=== PATIENT | female | born 1940 | race Hispanic/Latino ===

== ENCOUNTER 2017-06-15 10:39 | Emergency (ER) | payer MEDICARE, MEDICAID ==
[2017-06-15 11:13] LABS: #Eosinphils 0.1 thou/uL (0.0-0.7); #Lymphocytes 0.8 thou/uL (1.20-3.40); #Monocytes 0.6 thou/uL (0.11-0.59); #Neutrophils 6.5 thou/uL (1.40-6.50); %Basophils 0.1 % (0.0-1.0); %Eosinophils 0.8 % (0.0-10.0); %Lymphocytes 10.3 % (21.0-51.0); %Monocytes 6.9 % (0.0-10.0); %Neutrophils 81.8 % (42.0-75.0); Hemoglobin 8.6 g/dL (12.0-16.0); Mean Corpuscular HGB CONC 31.9 g/dL (32.0-36.0); Mean Corpuscular Volume 87.8 fl (81.0-99.0); Mean Platelet Volume 6.7 fL (7.4-10.4); Platelet Count 310 thou/uL (130-400); RBC Distribution Width 14.4 % (11.5-14.5); Red Blood Cell (RBC) Count 3.06 mill/uL (4.20-5.40)
[2017-06-15 11:16] LABS: INR-International Normal Ratio 1.2; PTT 40.7 SEC (22.9-36.1); Prothrombin Time 15.3 SEC (12.0-14.7)
[2017-06-15] MEDS ORDERED: Oxymetazoline HCl 0.05% ( 15 ML ) ONE (11:29)
[2017-06-15 11:33] LABS: Anion Gap 13 mmol/L (10-20); BUN (Urea Nitrogen) 23 mg/dL (9.8-20.1); Calc. Creatinine Clearance 0 mL/min (70-130); Calcium 8.9 mg/dL (7.8-10.44); Carbon Dioxide 27 mmol/L (23-31); Chloride 101 mmol/L (98-107); Estimated GFR-MDRD 55; Glucose 131 mg/dL (83-110); Potassium 4.8 mmol/L (3.5-5.1); Sodium 136 mmol/L (136-145)
== END 2017-06-15 12:46 | disposition home or self-care (01) ==
LOC: ERS 10:39
DX: R04.0 Epistaxis (principal); D64.9 Anemia, unspecified; E11.9 Type 2 diabetes mellitus without complications; I10 Essential (primary) hypertension; Z85.038 Personal history of other malignant neoplasm of large intestine; Z85.41 Personal history of malignant neoplasm of cervix uteri
CPT/HCPCS: 30903; 36415; 80048; 85025; 85610; 85730

== ENCOUNTER 2017-06-26 09:53 | Inpatient (IN) | payer MEDICARE, OTHER ==
[2017-06-26 11:03] LABS: #Eosinphils 0.1 thou/uL (0.0-0.7); #Lymphocytes 1.2 thou/uL (1.20-3.40); #Monocytes 0.6 thou/uL (0.11-0.59); #Neutrophils 6.1 thou/uL (1.40-6.50); %Basophils 0.1 % (0.0-1.0); %Eosinophils 0.9 % (0.0-10.0); %Lymphocytes 14.4 % (21.0-51.0); %Monocytes 7.9 % (0.0-10.0); %Neutrophils 76.7 % (42.0-75.0); Hemoglobin 6.8 g/dL (12.0-16.0); Mean Corpuscular HGB CONC 31.6 g/dL (32.0-36.0); Mean Corpuscular Hemoglobin 27.7 pg (27.0-31.0); Mean Corpuscular Volume 87.6 fl (81.0-99.0); Mean Platelet Volume 7.7 fL (7.4-10.4); Platelet Count 224 thou/uL (130-400); RBC Distribution Width 15.3 % (11.5-14.5); Red Blood Cell (RBC) Count 2.46 mill/uL (4.20-5.40)
--- NOTE | 2017-06-26 11:06 | RAD ---
CHEST 1 VIEW: Date: 06/26/17 HISTORY: Fever. COMPARISON: 12/06/16. FINDINGS: Cardiac silhouette is magnified by projection. Pulmonary vasculature is upper limits of normal. Media stinum is midline with aortic calcification. Calcified granulomata are consistent with healed granulo matous disease. There is no lobar consolidation or evidence of pneumothorax. bus driver/monitor leads ov erlie the chest. IMPRESSION: Borderline pulmonary vascular prominence without florid edema. No lobar consolidation is apparent. POS: [facility]
[2017-06-26 11:40] LABS: ALT (SGPT) 11 U/L (8-55); AST (SGOT) 25 U/L (5-34); Albumin 2.3 g/dL (3.4-4.8); Alkaline Phosphatase 113 U/L (40-150); Anion Gap 13 mmol/L (10-20); BUN (Urea Nitrogen) 32 mg/dL (9.8-20.1); Bilirubin, Total 0.5 mg/dL (0.2-1.2); Calc. Creatinine Clearance 0 mL/min (70-130); Calcium 8.5 mg/dL (7.8-10.44); Carbon Dioxide 20 mmol/L (23-31); Chloride 105 mmol/L (98-107); Estimated GFR-MDRD 56; Globulin 4.1 g/dL (2.4-3.5); Glucose 120 mg/dL (83-110); Potassium 5.3 mmol/L (3.5-5.1); Protein, Total 6.4 g/dL (6.0-8.3); Sodium 133 mmol/L (136-145)
[2017-06-26] MEDS ORDERED: Pantoprazole 40 MG VIAL ONE (12:16)
[2017-06-26] MEDS ORDERED: Dextrose 5% in Water 1,000 ML IV PRN (13:53)
[2017-06-26] MEDS ORDERED: Dextrose 50% Abboject 50 ML SYRINGE SLOW IVP PRN (13:53)
[2017-06-26] MEDS ORDERED: HumaLOG 300 UNITS/3 ML VIAL SC PRN (13:53)
[2017-06-26 14:05] LABS: Reticulocyte Count 3.6 % (0.5-1.5)
[2017-06-26 14:35] LABS: Anisocytosis SLIGHT = 6-15 cells (100X) (0-5/hpf); Eosinophils 1 % (0-10); Hemoglobin 7.5 g/dL (12.0-16.0); Lymphocytes 11 % (21-51); MDiff Complete? YES; Mean Corpuscular HGB CONC 32.7 g/dL (32.0-36.0); Mean Corpuscular Hemoglobin 28.5 pg (27.0-31.0); Mean Corpuscular Volume 87.2 fl (81.0-99.0); Mean Platelet Volume 7.2 fL (7.4-10.4); Monocytes 4 % (0-10); Neutrophil 84 % (42-75); PLT Morphology Comment Appears Adequate; Platelet Count 222 thou/uL (130-400); Polychromasia SLIGHT = 2-3 cells (100X) (0-2/hpf); RBC Distribution Width 14.6 % (11.5-14.5); Red Blood Cell (RBC) Count 2.65 mill/uL (4.20-5.40); White Blood Cell (WBC) Count 8.3 thou/uL (4.8-10.8)
--- NOTE | 2017-06-26 14:47 | HP-2 ---
DATE OF ADMISSION: 06/26/2017 TIME: 1308 hours. CODE STATUS: FULL. PRIMARY CARE PHYSICIAN: Dr. Richard. ATTENDING: Dr. Villegas. RESIDENT: Dr. Barron. HISTORIAN: Patient. CHIEF COMPLAINT: Low hemoglobin. HISTORY OF PRESENT ILLNESS: This is a 77-year-old female, who arrived to [facility] with low h emoglobin. She states that she was feeling weak for about 1-2 months. 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 She denies having any kind of shortness of breath, chest pain, emesis, abdominal pain, diarrhea, hematochezia. She does endorse da rk stool that has started for the last month. It was noted that her hemoglobin was low at the [facility] and she was sent to the ER. Two sets of hemoglobin was taken and it was 5.8 and then 6.9. A Hemoccu lt blood was done and was found to be guaiac positive. In the ER, she has received Protonix, 1 unit of RBC in the middle of transfusion, and 500 mL of normal saline. PAST MEDICAL HISTORY: 1. Hyperlipidemia. 2. Cervical cancer. 3. Diabetes, type 2. 4. Hypertension. 5. Tubular adenoma removed with colonoscopy, 3 years prior. PAST SURGICAL HISTORY: 1. Colon resection. 2. Appendectomy. 3. Cholecystectomy. 4. Hysterectomy. 5. Right lower extremity amputation. ALLERGIES: No known drug allergies. MEDICATIONS: Patient is unable to remember medications and no records of medication was available at the time of this H and P. We will attempt to obtain the records from her rehabilitation facility. FAMILY HISTORY: Daughter, who has colon cancer at age 32, endorses CAD, diabetes type 2, hypertensio n, hyperlipidemia in the family. SOCIAL HISTORY: Endorses quitting tobacco smoking about 4 or 5 years ago, but cannot quantify the ex act amount of time and quantity she smoked for. Denies any alcohol or drug use. She is , has 5 children, and is currently staying at rehab after a right below-knee amputation. REVIEW OF SYSTEMS: General: Denies fever, chills, appetite change, or fatigue. Eyes: Denies visio n change. ENT: Denies nasal congestion. Respiratory: Denies cough, congestion, or shortness of br eath. Cardiovascular: Denies chest pain or palpitations. Gastrointestinal: Denies nausea, vomitin g, diarrhea, constipation, abdominal pain, or gastrointestinal bleeding. Does endorse dark stools. Genitourinary: Denies dysuria or hematuria. Skin: Endorses having a sacral ulcer on her back. Mus culoskeletal: Denies pain. Neuro: Denies weakness or numbness. Psychiatric: Denies anxiety or de pression. PHYSICAL EXAMINATION: VITAL SIGNS: Blood pressure 134/42, pulse 76, respirations 20, T-max 98.3, O2 98% on room air. Curr ent weight 86 kilograms. GENERAL: Alert, oriented x3, not in acute distress, well-developed, obese, and appropriately interac tive. EYES: Conjunctivae within normal limits. ENT: Oropharynx within normal limits. The patient has dentures. NECK: Supple, with no lymphadenopathy. CARDIOVASCULAR: Regular rate and rhythm. RESPIRATORY: Normal effort. Clear to auscultation bilaterally. No retractions. SKIN: There is approximately 7 x 5 cm sacral ulcer on her sacrum, appears to be stage 2, and preexis tent prior to admission. ABDOMEN: Soft, bowel sounds heard throughout. Not tender to palpation. Guaiac positive. EXTREMITIES: Right below knee-amputation with clean-appearing incision. MUSCULOSKELETAL: The patient has a right below-knee amputation. NEUROLOGICAL: Cranial nerves II-XII grossly intact. GCS 15. PSYCHIATRIC: Appropriate. LABORATORY DATA: 1. CBC: Hemoglobin 6.8, MCV 87, WBC 8, platelets 224. 2. Sodium 133, chloride 105, potassium 5.3, bicarbonate 20, BUN 32, creatinine 0.97, glucose 120, ca lcium 8.5. 3. AST 11, ALT 11, alkaline phosphatase 113, total bilirubin 0.5. Lactic acid 2.3 and albumin 2.3. IMAGING: Chest x-ray, vascular prominence, but no florid edema or consolidation. ASSESSMENT AND PLAN: 1. Normocytic anemia. Fecal occult blood test was positive and had dark stool per history. We will consult Gastroenterology for possible bleed. The patient is currently asymptomatic, but with RBC le ss than 7, she will be receiving a transfusion of 1 packed RBC. We will recheck her H and H 4 hours after her transfusion completes. We will consult Gastroenterology for possible upper and lower scope s. We will also plan another test for blood smear, retic count, iron studies, folate, and B12. 2. Diabetes, type 2. We will obtain records from her rehabilitation facility, and resume home medic ation with sliding scale insulin. 3. Hyperlipidemia. Resume medication. 4. Hypertension. We will hold her blood pressure medication at this time due to potential bleed. 5. Chronic kidney disease, stage 3. This is a chronic issue. We will continue to monitor. 6. Mild lactic acidosis. Lactic acidosis of 2.3. We will recheck a second lactic acid lab. 7. Possible protein-calorie malnutrition. The patient has an albumin of 2.3, which is lower than fr om previous visit and she is healing from both a surgery and has a skin wound, which may benefit from protein supplementation. 8. Prophylaxis. She will be started on Protonix and sequential compression device due to possible b leed. DISPOSITION AND LENGTH OF HOSPITAL STAY: 2+ inpatient day. This history and physical exam as well as management has been discussed with Dr. Villegas.
[2017-06-26 15:07] LABS: Folate (Folic Acid) 6.8 ng/mL (7.0-31.4)
[2017-06-26 15:16] LABS: Lactic Acid 1.4 mmol/L (0.5-2.2)
[2017-06-26 17:58] VITALS: BMI 33.6
[2017-06-26 19:02] LABS: Anion Gap 11 mmol/L (10-20); BUN (Urea Nitrogen) 26 mg/dL (9.8-20.1); Calc. Creatinine Clearance 82 mL/min (70-130); Calcium 8.3 mg/dL (7.8-10.44); Carbon Dioxide 23 mmol/L (23-31); Chloride 106 mmol/L (98-107); Estimated GFR-MDRD 73; Glucose 84 mg/dL (83-110); Potassium 4.2 mmol/L (3.5-5.1); Sodium 136 mmol/L (136-145)
[2017-06-26] MEDS: Docusate 100 MG CAP PO SCH (22:34)
[2017-06-27 05:41] LABS: #Eosinphils 0.2 thou/uL (0.0-0.7); #Lymphocytes 1.3 thou/uL (1.20-3.40); #Monocytes 0.8 thou/uL (0.11-0.59); #Neutrophils 4.8 thou/uL (1.40-6.50); %Basophils 0.1 % (0.0-1.0); %Eosinophils 2.8 % (0.0-10.0); %Lymphocytes 18.2 % (21.0-51.0); %Monocytes 10.7 % (0.0-10.0); %Neutrophils 68.2 % (42.0-75.0); Hemoglobin 7.4 g/dL (12.0-16.0); Mean Corpuscular HGB CONC 32.2 g/dL (32.0-36.0); Mean Corpuscular Hemoglobin 28.1 pg (27.0-31.0); Mean Corpuscular Volume 87.2 fl (81.0-99.0); Mean Platelet Volume 7.3 fL (7.4-10.4); Platelet Count 207 thou/uL (130-400); RBC Distribution Width 14.7 % (11.5-14.5); Red Blood Cell (RBC) Count 2.64 mill/uL (4.20-5.40)
[2017-06-27] MEDS ORDERED: GoLYTELY 4,000 ml Bottle PO SCH (06:00)
--- NOTE | 2017-06-27 06:25 | CON ---
DATE OF CONSULTATION: 06/26/2017 REFERRING PHYSICIAN: Dr. Abdiel Villegas from [facility]. REASON FOR CONSULTATION: Anemia, occult GI bleeding. HISTORY OF PRESENT ILLNESS: Ms. Lilliam Mariee is a very pleasant 77-year-old female hospitalized this evening because of anemia and also history of dark stools. She had a stool guaiac done in the ER, which came back positive for occult blood. The patient has anemia from before. The patient was recently hospitalized at the [facility] because of ischemic right leg and underwent below-knee amputation by Dr. Zaid Beach. This was done in 05/2017. The patient was transferred to [facility] for rehabilitation. The patient has been feeling weak and dizzy over the last several weeks. She was sent to the ER this afternoon from the [facility]. She had a CBC done and was found to have anemia. She had 2 sets of hemoglobin, one was 5.8 and another one was 6.9. The patient has had stool guaiac done in the ER and came back positive. Her stool was not black or any bright red blood in stool. The patient has no abdominal pain, no nausea, no vomiting. The patient tells me she had anemia in the past and was placed on iron supplement. At the present time, denies abdominal pain, nausea, or vomiting. Her bowel movements are fairly regular. There is no relevant history. The patient has had a colonoscopy and there was found to have a right colon cancer in 2012. She underwent surgery and did not need any chemotherapy. The patient had a followup colonoscopy [address], this was done in 11/2015. At that time, she had a sessile polyp in sigmoid colon area. The patient had not seen me over the last about 2 years. The patient has no history of weight loss. She has no other relevant symptoms. ALLERGIES: None. SOCIAL HISTORY: The patient does not smoke or drink alcohol. MEDICAL ILLNESSES: 1. Hypertension. 2. Type 2 diabetes mellitus. 3. Cervical cancer. 4. Hyperlipidemia. 5. Colon cancer, status post right colectomy in 2012. 6. Colon polyp. SURGERIES: 1. Status post right colectomy. 2. Appendectomy. 3. Hysterectomy. 4. Cholecystectomy. 5. Below-knee amputation of right leg on 05/2017, at the [facility]. FAMILY HISTORY: Daughter had colon cancer, coronary artery disease, type 2 diabetes mellitus, hypertension, hyperlipidemia. MEDICATIONS: List is not available at the present time. She does not know her medications. REVIEW OF SYSTEMS: Ten-point system reviewed. Central Nervous System: No history of TIA, no chronic headache, no syncope, no seizure disorder. Constitutional: No history of fever, no weight loss, no night sweats. Respiratory system: No history of chronic cough, hemoptysis, dyspnea. Cardiovascular system: No chest pain, no palpitation, no orthopnea or PND. Gastrointestinal: As in history of present illness. Genitourinary: No dysuria , hematuria, or frequency of urination. Musculoskeletal/Endocrine/Hematological : Non relevant. PHYSICAL EXAMINATION: GENERAL: The patient appears pale. She is awake, alert, and communicative. VITAL SIGNS: Her pulse is 76, blood pressure is 134/42. She appears pale. HEENT: Conjunctivae clear. NECK: Supple. No adenitis or thyromegaly noted. CARDIOVASCULAR SYSTEM: First and second heart sounds normal. LUNGS: Clear to auscultation. ABDOMEN: Soft to palpate. Abdomen is nontender. There are no organomegaly or masses. EXTREMITIES: Right leg below-knee amputation, the suture line appears healthy. LABORATORY DATA: Hemoglobin 6.8, MCV 87. WBC 8000, platelet count 224,000. Sodium 133, potassium 105, chloride 5.3, bicarbonate 20, BUN 32, creatinine is 0.97, glucose 120, calcium 8.5, AST 11, ALT 11, alkaline phosphatase 113, bilirubin 0.5. CLINICAL IMPRESSION: 1. A 77-year-old female with anemia, which is normocytic. The patient has history of dark stool but has been on iron supplement which could be responsible. The patient had colon cancer in 2013, with surgery. She also had colon polyps removed in the past. 2. Diabetes mellitus. 3. Hypertension. 4. Peripheral vascular disease, status post below-knee amputation, right leg. 5. Hyperlipidemia. RECOMMENDATIONS: 1. Follow up H and H. 2. Transfuse. 3. EGD and colonoscopy tomorrow. I will make further recommendations after the endoscopic studies. [facility]
[2017-06-27 06:30] LABS: ALT (SGPT) 10 U/L (8-55); AST (SGOT) 18 U/L (5-34); Albumin 2.4 g/dL (3.4-4.8); Alkaline Phosphatase 105 U/L (40-150); Anion Gap 10 mmol/L (10-20); BUN (Urea Nitrogen) 23 mg/dL (9.8-20.1); Bilirubin, Total 0.5 mg/dL (0.2-1.2); Calc. Creatinine Clearance 77 mL/min (70-130); Calcium 8.2 mg/dL (7.8-10.44); Carbon Dioxide 25 mmol/L (23-31); Chloride 107 mmol/L (98-107); Estimated GFR-MDRD 67; Globulin 3.2 g/dL (2.4-3.5); Glucose 102 mg/dL (83-110); Potassium 4.5 mmol/L (3.5-5.1); Protein, Total 5.6 g/dL (6.0-8.3); Sodium 137 mmol/L (136-145)
--- NOTE | 2017-06-27 06:53 | PDOC.FM ---
- Subjective Subjective: Pt states that she still feels week, however is somewhat better post transfusion. She is denies dizziness, however has not been up walking since admission. She denies other symptoms such as CP or SOB. All other symptoms on ROS are negative. There were no acute events over night. - Objective Vital Signs & Weight: Vital Signs (12 hours) Temp Pulse Resp BP Pulse Ox 06/27/17 00:10 98.8 F 74 18 147/62 H 98 06/26/17 20:00 98.7 F 71 16 131/57 L 94 L Weight Weight 86.183 kg I&O: 06/25/17 06/26/17 06/27/17 06:59 06:59 06:59 Intake Total 300 Balance 300 Result Diagrams: 06/27/17 04:49 06/27/17 04:49 <Zaid Ford - Last Filed: 06/27/17 08:53> - Objective Vital Signs & Weight: Vital Signs (12 hours) Temp Pulse Resp BP Pulse Ox 06/27/17 08:00 98.0 F 74 20 94 L 06/27/17 07:59 98.0 F 74 20 151/70 H 94 L Weight Admit Weight 86.183 kg Weight 86.183 kg I&O: 06/26/17 06/27/17 06/28/17 06:59 06:59 06:59 Intake Total 300 Balance 300 Result Diagrams: 06/27/17 04:49 06/27/17 04:49 <Luis Felipe Wen - Last Filed: 06/27/17 12:34> Phys Exam - Physical Examination Constitutional: NAD HEENT: PERRLA, moist MMs Neck: no nodes Respiratory: clear to auscultation bilateral Cardiovascular: RRR, no significant murmur Systolic murmur 2/6, does not radiate Gastrointestinal: soft, non-tender, no distention Musculoskeletal: no edema Neurological: non-focal Psychiatric: normal affect, A&O x 3 <Zaid Ford - Last Filed: 06/27/17 08:53> Dx/Plan (1) Normocytic anemia due to blood loss Code(s): D50.0 - IRON DEFICIENCY ANEMIA SECONDARY TO BLOOD LOSS (CHRONIC) Status: Acute (2) DM2 (diabetes mellitus, type 2) Status: Chronic (3) HTN (hypertension) Code(s): I10 - ESSENTIAL (PRIMARY) HYPERTENSION Status: Chronic QualifierTitle: Hypertension type: essential hypertension Qualified Code( s): I10 - Essential (primary) hypertension (4) CKD (chronic kidney disease) stage 2, GFR 60-89 ml/min Code(s): N18.2 - CHRONIC KIDNEY DISEASE, STAGE 2 (MILD) Status: Chronic - Plan Plan: 1. symptomatic anemia secondary to GI blood loss - GI has been consulted. Pt will have EGD and colonoscopy today - Hemodynamically stable - GI recommendation pending results of scopes 2. HTN - continue home meds - Pt does currently have elevated BP, however not to the point of concern - Will continue to monitor and adjust meds as needed 3. DM2 - SSI, continue home meds after med rec is complete - control is unclear 4. CKD2 - it is possible that some of this anemia is chronic - Current GFR is at baseline - Will continue to hydrate and monitor BMP <Zaid oFrd - Last Filed: 06/27/17 08:53> Attending Addendum - Attending Addendum I personally evaluated the patient and discussed the management with Dr. Ford. I agree with the History, Examination, Assessment and Plan documented above with any addition or exceptions noted below. Patient with symptomatic hyporegenerative normocytic anemia that is felt to be due to GI bleed. She is to undergo EGD and colonoscopy later today. If her Hgb drops any more, with her age and symptoms, would advise repeat transfusion of 1 unit PRBCs. Her other labs are stable. Await GI recs. <Luis Felipe Wen - Last Filed: 06/27/17 12:34>
[2017-06-27] MEDS ORDERED: Acetaminophen 325 MG TAB PO PRN (11:19)
[2017-06-27] MEDS: Docusate 100 MG CAP PO SCH ×2 (12:22→20:03)
[2017-06-27] MEDS: Folic Acid 1 MG TAB PO SCH (12:22)
[2017-06-27] MEDS: Multivitamin W/ Minerals 1 TAB PO SCH (12:22)
[2017-06-27] MEDS ORDERED: Propofol 200 MG/20 ML VIAL ONE (13:33)
[2017-06-27] MEDS ORDERED: Ondansetron HCl/PF 4 MG/2 ML Vial IVP PRN (15:26)
--- NOTE | 2017-06-27 17:24 | ULT ---
BILATERAL CAROTID DUPLEX ULTRASOUND: DATE: 06/27/17 HISTORY: Carotid bruit. TECHNIQUE: John scale, color flow and spectral Doppler imaging of the extracranial carotid artery systems was pe rformed bilaterally. FINDINGS: There is plaque formation in the right ICA. The peak systolic velocity in the right ICA measures 84 cm/second with an end-diastolic velocity of 1 6 cm/second and a systolic ratio of 0.81. The peak systolic velocity in the left ICA measures 121 cm/second with an end-diastolic velocity of 2 5 cm/second and a systolic ratio of 1.04. Flow in both vertebral arteries remains antegrade. IMPRESSION: No evidence of hemodynamically significant stenosis. : POS: [facility]
[2017-06-27 19:04] LABS: #Eosinphils 0.2 thou/uL (0.0-0.7); #Lymphocytes 1.3 thou/uL (1.20-3.40); #Monocytes 0.5 thou/uL (0.11-0.59); #Neutrophils 5.1 thou/uL (1.40-6.50); %Basophils 0.4 % (0.0-1.0); %Eosinophils 2.3 % (0.0-10.0); %Lymphocytes 18.3 % (21.0-51.0); %Monocytes 7.5 % (0.0-10.0); %Neutrophils 71.5 % (42.0-75.0); Hemoglobin 7.5 g/dL (12.0-16.0); Mean Corpuscular HGB CONC 32.5 g/dL (32.0-36.0); Mean Corpuscular Hemoglobin 28.3 pg (27.0-31.0); Mean Corpuscular Volume 87.1 fl (81.0-99.0); Mean Platelet Volume 6.9 fL (7.4-10.4); Platelet Count 225 thou/uL (130-400); RBC Distribution Width 14.6 % (11.5-14.5); Red Blood Cell (RBC) Count 2.64 mill/uL (4.20-5.40); White Blood Cell (WBC) Count 7.2 thou/uL (4.8-10.8)
--- NOTE | 2017-06-28 06:52 | OP ---
DATE OF PROCEDURE: 06/27/2017 PREOPERATIVE DIAGNOSES: A 77-year-old Latin-[place] female with symptomatic anemia, history of dark stool and also the stool is positive for occult blood. She is also anemic. The patient had colon c ancer in 2012 with right colectomy. The patient is undergoing colonoscopy. POSTOPERATIVE DIAGNOSES: 1. Healthy anastomosis. 2. Small sessile descending colon polyp, removed with biopsy forceps. 3. Hemorrhoids. 4. Occasional, mild sigmoid diverticular disease. OPERATIVE PROCEDURE: Colonoscopy with biopsy. PROCEDURE NOTE: The patient was placed on her left lateral position and was given sedation by the An esthesia Department. A rectal exam was performed before the scope was advanced into the rectum. No lesions were felt on rectal exam. A Pentax video colonoscope was introduced into the rectum and adva nced all the way into the anastomotic area. The anastomotic area appeared healthy. The ileal mucosa appears normal. On withdrawal of the scope through the transverse colon and splenic flexure, no pat hology seen. The descending colon showed a small sessile polyp. It was removed with biopsy forceps. The sigmoid colon showed an occasional diverticulosis. Rectum showed hemorrhoids.
--- NOTE | 2017-06-28 06:53 | OP ---
DATE OF PROCEDURE: 06/27/2017 OPERATIVE PROCEDURE: Esophagogastroduodenoscopy with biopsy. PREOPERATIVE DIAGNOSES: History of black tarry stool, anemia, and occult gastrointestinal bleeding. POSTOPERATIVE DIAGNOSES: 1. Small hiatus hernia. 2. Ulcerative pedunculated polyp over the gastric antrum. PROCEDURE NOTE: The patient was placed on left lateral position and was given sedation by Anesthesia Department. A Pentax video gastroscope under direct vision was passed down the oropharynx, past the gastroesophageal junction, into the stomach and subsequently into the descending duodenum. The vocal cords appeared healthy. The esophageal mucosa appeared normal. No intrinsic lesions. The patient had hiatus hernia. Retroflexion failed to show any lesions in the fundus or cardia. The gastric body, no pathology seen. The patient was found to have an ulcerated gastric polyp over the gastric antrum. The polyp is pedunculated. On top of the polyp, there is an area of mucosal breakdown with ulceration and also what appears to be some blood clot. No active bleeding seen, this was biopsied. The incisura angularis showed no pathology. Duodenal bulb and descending duodenum, no pathology seen. The stomach was decompressed and the scope removed. RECOMMENDATIONS: 1. Followup hemoglobin and hematocrit. 2. Transfuse p.r.n. 3. Iron supplement. MTDD
--- NOTE | 2017-06-28 07:37 | PDOC.FM ---
- Subjective Subjective: Pt feels well this morning, however states that she still has some fatigue. She has been ambulating without dizziness. Pt denies any new symptoms in ROS. There were no acute events over night. - Objective Vital Signs & Weight: Vital Signs (12 hours) Temp Pulse Resp BP Pulse Ox 06/28/17 03:49 98.2 F 67 16 145/54 H 99 06/27/17 20:00 98.2 F 75 16 157/64 H 100 Weight Admit Weight 86.183 kg Weight 86.183 kg I&O: 06/27/17 06/28/17 06/29/17 06:59 06:59 06:59 Intake Total 300 325 Balance 300 325 Result Diagrams: 06/27/17 18:57 06/27/17 04:49 <Zaid Ford - Last Filed: 06/28/17 08:25> - Objective Vital Signs & Weight: Vital Signs (12 hours) Temp Pulse Resp BP Pulse Ox 06/28/17 08:00 98.6 F 74 20 147/51 H 98 06/28/17 03:49 98.2 F 67 16 145/54 H 99 Weight Admit Weight 86.183 kg Weight 86.183 kg I&O: 06/27/17 06/28/17 06/29/17 06:59 06:59 06:59 Intake Total 300 325 Balance 300 325 Result Diagrams: 06/28/17 09:56 06/27/17 04:49 <Luis Felipe Wen - Last Filed: 06/28/17 12:29> Phys Exam - Physical Examination Constitutional: NAD HEENT: PERRLA, moist MMs Neck: no nodes, no JVD Respiratory: clear to auscultation bilateral Cardiovascular: RRR systolic murmur 2/6. does not radiate Gastrointestinal: soft, non-tender, no distention, positive bowel sounds Musculoskeletal: no edema, pulses present R AKA. Wound clean w/o drainage or tenderness Neurological: non-focal Lymphatic: no nodes Psychiatric: normal affect, A&O x 3 Skin: no rash, normal turgor <Zaid Ford - Last Filed: 06/28/17 08:25> Dx/Plan (1) Normocytic anemia due to blood loss Code(s): D50.0 - IRON DEFICIENCY ANEMIA SECONDARY TO BLOOD LOSS (CHRONIC) Status: Acute (2) DM2 (diabetes mellitus, type 2) Status: Chronic (3) HTN (hypertension) Code(s): I10 - ESSENTIAL (PRIMARY) HYPERTENSION Status: Chronic QualifierTitle: Hypertension type: essential hypertension Qualified Code( s): I10 - Essential (primary) hypertension (4) CKD (chronic kidney disease) stage 2, GFR 60-89 ml/min Code(s): N18.2 - CHRONIC KIDNEY DISEASE, STAGE 2 (MILD) Status: Chronic - Plan Plan: 1. symptomatic anemia secondary to GI blood loss - s/p 1U PRBC - C-scope found one polyp, otherwise normal. EGD found a gastric polyp with clot , no active bleeding. - At this time, the bleeding gastric polyp appears to be the most likely cause of anemia. - She remains hemodynamically stable 2. HTN - continue home meds - Pt does currently have elevated BP, however not to the point of concern - Will continue to monitor and adjust meds as needed 3. DM2 - SSI, continue home meds after med rec is complete - control is unclear 4. CKD2 - it is possible that some of this anemia is chronic - Current GFR is at baseline - Will continue to hydrate and monitor BMP Dispo: Pt is currently stable and ready for dc w/outpt follow up for anemia. <Zaid Ford - Last Filed: 06/28/17 08:25> Attending Addendum - Attending Addendum I personally evaluated the patient and discussed the management with Dr. Ford. I agree with the History, Examination, Assessment and Plan documented above with any addition or exceptions noted below. Patient is s/p EGD and colonoscopy. She is doing well. Likely cause of bleed was gastric ulcer on pedunculated polyp. Her H&H is stable. Will work to get patient back to rehab if GI has no further recommendations. <Luis Felipe Wen - Last Filed: 06/28/17 12:29>
[2017-06-28] MEDS: Folic Acid 1 MG TAB PO SCH (07:44)
[2017-06-28] MEDS: Docusate 100 MG CAP PO SCH (07:44)
[2017-06-28] MEDS: Multivitamin W/ Minerals 1 TAB PO SCH (07:45)
[2017-06-28 10:03] LABS: #Eosinphils 0.1 thou/uL (0.0-0.7); #Lymphocytes 1.2 thou/uL (1.20-3.40); #Monocytes 0.6 thou/uL (0.11-0.59); #Neutrophils 5.6 thou/uL (1.40-6.50); %Basophils 0.3 % (0.0-1.0); %Eosinophils 1.7 % (0.0-10.0); %Lymphocytes 16.1 % (21.0-51.0); %Monocytes 7.6 % (0.0-10.0); %Neutrophils 74.2 % (42.0-75.0); Hemoglobin 8.3 g/dL (12.0-16.0); Mean Corpuscular HGB CONC 31.9 g/dL (32.0-36.0); Mean Corpuscular Volume 87.8 fl (81.0-99.0); Mean Platelet Volume 6.7 fL (7.4-10.4); Platelet Count 227 thou/uL (130-400); RBC Distribution Width 14.6 % (11.5-14.5); Red Blood Cell (RBC) Count 2.97 mill/uL (4.20-5.40); White Blood Cell (WBC) Count 7.5 thou/uL (4.8-10.8)
[2017-06-28 15:50] VITALS: BP 156/64; TEMP 98.4
[2017-06-28] MEDS ORDERED: Ferrous Sulfate 325 MG TAB PO SCH (17:00)
--- NOTE | 2017-06-29 02:04 | DIS-2 ---
DATE OF ADMISSION: 06/26/2017 DATE OF DISCHARGE: 06/28/2017 ADMITTING ATTENDING: Luis Felipe Wen MD DISCHARGE ATTENDING: Luis Felipe Wen MD RESIDENT: Zaid Ford DO CONSULT: Dr. Baer, Gastroenterology. PRIMARY DIAGNOSIS: Asymptomatic normocytic anemia. SECONDARY DIAGNOSES: Type 2 diabetes, hyperlipidemia, hypertension, CKD 3, lactic acidosis, and protein-calorie malnutrition. PROCEDURES: Colonoscopy and EGD performed by Dr. Baer. DISCHARGE MEDICATIONS: Aspirin 81, lisinopril 5 mg p.o. daily, atorvastatin 40 mg daily, alogliptin/pioglitazone 25/30 mg 1 tablet p.o. daily, furosemide 20 mg p.o. daily, Humalog 75/25 40 units subcu b.i.d. a.c., omeprazole 20 mg p.o. daily, and ferrous sulfate 325 mg p.o. b.i.d. HISTORY OF PRESENT ILLNESS: The patient was admitted for a workup for asymptomatic normocytic anemia. FOBT was performed that was positive, therefore , GI was consulted. Upon GI consult, colonoscopy and EGD were performed. Colonoscopy revealed a normal exam with the exception of one 2 cm sessile polyp on the descending colon that was removed. EGD, found a small pedunculated polyp with an ulcerated tip that was not actively bleeding, however, did have a clot. The polyp was biopsied, however, not removed. It was determined that this gastric polyp was most likely source of the bleeding. In the emergency room, the patient received 1 unit packed red blood cells. There is no significant reaction to the transfusion and the patient's hemoglobin responded appropriately. The day following transfusion, the patient felt significantly better, and her hemoglobin remained stable and improved throughout the admission. Additionally, the patient was due to follow up with surgeon for removal of her sutures from her recent BKA. Due to being admitted, she missed that appointment and the sutures were removed while admitted. The wound was clean, dry, nontender and appeared to be appropriate for suture removal as originally planned in an outpatient setting. At the time of discharge, the patient was hemodynamically stable and feeling significantly better. There is no concern for continued active bleeding and felt the patient was appropriate to return to her rehabilitation setting with close follow up on resolution of the anemia. The patient was put on iron supplementation and was recommended that a follow up be continued outpatient with her PCP. DISPOSITION: Stable. DISCHARGE INSTRUCTIONS: LOCATION: Rehabilitation. DIET: Heart healthy and low carbohydrate. ACTIVITY: Per PT recommendations and rehab facility. FOLLOWUP: Follow up with PCP, Dr. Richard in [address] Baer within 2 months. [facility]
== END 2017-06-28 15:47 | disposition home or self-care (01) | DRG 394 ==
LOC: ERS 09:53 → T4-B 12:59
PROVIDERS: ADMIT Student in an Organized Health Care Education/Training Program; ATTEND Student in an Organized Health Care Education/Training Program
PROC: 0DB68ZX Excision of Stomach, Via Natural or Artificial Opening Endoscopic, Diagnostic (ICD-10-PCS; principal; 2017-06-27)
PROC: 0DBM8ZX Excision of Descending Colon, Via Natural or Artificial Opening Endoscopic, Diagnostic (ICD-10-PCS; 2017-06-27)
DX: K31.7 Polyp of stomach and duodenum (principal); E46 Unspecified protein-calorie malnutrition; E11.22 Type 2 diabetes mellitus with diabetic chronic kidney disease; E87.2 Acidosis; E11.51 Type 2 diabetes mellitus with diabetic peripheral angiopathy without gangrene; D50.0 Iron deficiency anemia secondary to blood loss (chronic); E78.5 Hyperlipidemia, unspecified; Z87.891 Personal history of nicotine dependence; I12.9 Hypertensive chronic kidney disease with stage 1 through stage 4 chronic kidney disease, or unspecified chronic kidney disease; N18.3 Chronic kidney disease, stage 3 (moderate); Z85.41 Personal history of malignant neoplasm of cervix uteri; Z89.511 Acquired absence of right leg below knee; K44.9 Diaphragmatic hernia without obstruction or gangrene; K57.30 Diverticulosis of large intestine without perforation or abscess without bleeding; K64.9 Unspecified hemorrhoids; D12.4 Benign neoplasm of descending colon; Z68.33 Body mass index [BMI] 33.0-33.9, adult
CPT/HCPCS: 36415; 36416; 36430; 71045; 80053; 82274; 82607; 82728; 82746; 83550; 83605; 85025; 85046; 85060; 86850; 86900; 86901; 87040; 88305; 88312; 93880; 96361; 96374; C9113; G8978-GP-CK; G8979-GP-CK; G8987-GO-CK; G8988-GO-CJ; J2704; P9016

== ENCOUNTER 2017-07-12 09:04 | Outpatient (CLI) | payer MEDICARE, MEDICAID ==
--- NOTE | 2017-07-12 20:05 | HP ---
DATE OF SERVICE: 07/12/2017 HISTORY OF PRESENT ILLNESS: Ms. Lilliam Mariee is a very pleasant 77-year-old, who presents to the Wound Center for evaluation of a sacral pressure ulceration. The patient states that the sacral pre ssure ulceration has been present intermittently for approximately 1 year. The patient states that s he underwent right below the knee amputation 7 weeks ago at [facility]. She stat es that the sacral pressure ulceration has worsened since her amputation. The patient is presently [facility]. The patient was referred to the Wound Center on 07/10/2017 by her nurse practitioner Cleo Cm. PAST MEDICAL HISTORY: 1. Diabetes mellitus. 2. Hypertension. 3. Gastroesophageal reflux disease. 4. History of cervical carcinoma. 5. History of colon carcinoma. 6. History of anemia. 7. Chronic kidney disease, stage 3. 8. Protein calorie malnutrition. PAST SURGICAL HISTORY: 1. Hysterectomy and cervical radiation. 2. Cholecystectomy. 3. Appendectomy. 4. Right hemicolectomy. 5. Right fjtjy-vtg-nbuo amputation. MEDICATIONS: The patient does not have a list of her medications with her today. ALLERGIES: No known diagnosed allergies. SOCIAL HISTORY: Significant for tobacco use of up to 1 cigarette per day for 5 years. The patient s tates that she stopped smoking in 1989. The patient denies any history of ETOH use. FAMILY HISTORY: Family history significant for diabetes mellitus. The patient states that her mothe r, 2 brothers, 1 sister, 1 son, and 2 daughters who were all diagnosed with diabetes mellitus. Famil y history is also significant for coronary artery disease. The patient states that her father and he r son were both diagnosed with coronary artery disease. PHYSICAL EXAMINATION: VITAL SIGNS: Temperature 97.5, pulse 76, respirations 15, blood pressure 154/67, and Accu-Chek 100. GENERAL: A 77-year-old female lying on table in examination room in no acute distress. HEENT: Normocephalic, atraumatic. NECK: No nuchal rigidity. CHEST: Clear to auscultation. CARDIOVASCULAR: Regular rate and rhythm. ABDOMEN: Soft. BACK: A sacral pressure ulceration is present, which measures approximately 5.5 x 5.5 cm. Necrotic and nonviable tissue present within the wound margins was debrided with an excisional full-thickness debridement with the use of scissors. No purulent drainage is associated with the wound. No erythem a of the skin surrounding the wound is present. No maceration of the skin of the periwound is noted. Bone is palpable within the wound margins, but is not exposed within the margins of the wound. EXTREMITIES: The patient is status post right movqm-xef-klyg amputation. ASSESSMENT AND PLAN: 1. Sacral pressure ulceration as described above. Dressing changes of Medihoney will be initiated t . These dressing changes are to be performed on a daily basis after cleansing and irrigation at [facility]. No antibiotics will be prescribed today based upon the appearance of the wound. I will see Ms. Mariee again in two weeks. The importance of nutrition and offloading in achieving the healing of the ulceration has been discussed with Ms. Mariee today. The patient understands and is in agreement with the preceding treatment plan. 2. Diabetes mellitus. The patient's Accu-Chek in clinic today is 100. The patient has been told th at for optimal wound healing, her blood glucoses should remain below 150. 3. Hypertension. 4. Gastroesophageal reflux disease. 5. History of cervical carcinoma. 6. History of colon carcinoma. 7. History of anemia. 8. Chronic kidney disease, stage 3. 9. Protein calorie malnutrition.
[2017-07-13] MEDS ORDERED: Sodium Chloride 0.9% 15 ML NEB ONE (16:01)
[2017-07-13] MEDS ORDERED: Lidocaine 2% Jelly 5 ML TUBE ONE (16:01)
== END 2017-07-12 09:05 | disposition home or self-care (01) ==
LOC: WCC 09:04
PROVIDERS: ATTEND Family Medicine
DX: E11.622 Type 2 diabetes mellitus with other skin ulcer (principal); L89.153 Pressure ulcer of sacral region, stage 3; E11.22 Type 2 diabetes mellitus with diabetic chronic kidney disease; I12.9 Hypertensive chronic kidney disease with stage 1 through stage 4 chronic kidney disease, or unspecified chronic kidney disease; N18.3 Chronic kidney disease, stage 3 (moderate); E46 Unspecified protein-calorie malnutrition; K21.9 Gastro-esophageal reflux disease without esophagitis; Z85.41 Personal history of malignant neoplasm of cervix uteri; Z85.038 Personal history of other malignant neoplasm of large intestine
CPT/HCPCS: 11042; 11045; 82962; 97139; G0463; 36416; 99203

== ENCOUNTER 2017-07-26 09:02 | Outpatient (CLI) | payer MEDICARE, OTHER ==
--- NOTE | 2017-07-26 10:32 | PRG ---
DATE OF SERVICE: 07/26/2017 SUBJECTIVE: Ms. Lilliam Mariee is a very pleasant 77-year-old who presents to the Wound Center for evaluation of sacral pressure ulceration. The patient previously stated that the sacral pressure ul ceration had been present intermittently for approximately 1 year. The patient stated that she under went right fqlqs-qqs-[id number] amputation 7 weeks prior to her initial presentation to the Wound Center at [facility]. The patient stated that the sacral pressure ulceration had worsened since her amputation. The patient continues to reside at [facility]. The patient was referre d to the Wound Center on 07/10/2017 by her nurse practitioner, Cleo Cm. After being seen in the Wound Center, dressing changes of Medihoney were initiated on a daily basis. OBJECTIVE: VITAL SIGNS: Temperature 97.4, pulse 104, respirations 19, blood pressure 131/60, Accu-Chek 130. BACK: A sacral ulceration is present which measures approximately 4.1 x 5.4 cm. The dimensions of t he wound at the time of the patient's last visit were approximately 5.5 x 5.5 cm. The wound is granu lating. Necrotic and nonviable tissue present within the wound margins was debrided with an excision al full-thickness debridement with the use of scissors. No purulent drainage is associated with the wound. No erythema of the skin surrounding the wound is present. No maceration of the skin of the p eriwound is noted. ASSESSMENT AND PLAN: 1. Sacral pressure ulceration. Dressing changes of Medihoney will be continued on a daily basis aft er cleansing and irrigation at [facility]. I will see Ms. Mariee again in two weeks. 2. Diabetes mellitus. The patient's Accu-Chek in clinic today is 130. The patient has been reminde d that for optimal wound healing, her blood glucoses should remain below 150. 3. Hypertension. 4. Gastroesophageal reflux disease. 5. History of cervical carcinoma. 6. History of colon carcinoma. 7. History of anemia. 8. Chronic kidney disease stage 3. 9. Protein calorie malnutrition.
== END 2017-07-26 09:03 | disposition home or self-care (01) ==
LOC: WCC 09:02
PROVIDERS: ATTEND Family Medicine
DX: E11.622 Type 2 diabetes mellitus with other skin ulcer (principal); L89.159 Pressure ulcer of sacral region, unspecified stage; K21.9 Gastro-esophageal reflux disease without esophagitis; I12.9 Hypertensive chronic kidney disease with stage 1 through stage 4 chronic kidney disease, or unspecified chronic kidney disease; N18.3 Chronic kidney disease, stage 3 (moderate); E46 Unspecified protein-calorie malnutrition; Z85.41 Personal history of malignant neoplasm of cervix uteri; Z85.038 Personal history of other malignant neoplasm of large intestine
CPT/HCPCS: 11042; 11045

== ENCOUNTER 2017-07-28 09:39 | Day surgery (SDC) | payer MEDICARE, OTHER ==
[2017-07-28] MEDS ORDERED: Furosemide 20 MG/2 ML VIAL SLOW IVP SCH ×2 (11:30→13:00)
[2017-07-28] MEDS ORDERED: traMADol HCl 50 MG TAB PO PRN (15:07)
[2017-07-28 18:38] VITALS: BP 168/56; TEMP 99
[2017-07-28 19:16] LABS: Hemoglobin 11.6 g/dL (12.0-16.0)
== END 2017-07-28 19:05 | disposition home or self-care (01) ==
LOC: ONC/OP 09:39
PROVIDERS: ATTEND Family Medicine
PROC: 30233N1 Transfusion of Nonautologous Red Blood Cells into Peripheral Vein, Percutaneous Approach (ICD-10-PCS; principal; 2017-07-28)
DX: E11.22 Type 2 diabetes mellitus with diabetic chronic kidney disease (principal); I12.0 Hypertensive chronic kidney disease with stage 5 chronic kidney disease or end stage renal disease; N18.6 End stage renal disease; K21.9 Gastro-esophageal reflux disease without esophagitis; D63.1 Anemia in chronic kidney disease; E46 Unspecified protein-calorie malnutrition; Z79.4 Long term (current) use of insulin; Z79.82 Long term (current) use of aspirin; Z79.899 Other long term (current) drug therapy; Z90.710 Acquired absence of both cervix and uterus; Z90.49 Acquired absence of other specified parts of digestive tract; Z89.511 Acquired absence of right leg below knee; Z85.41 Personal history of malignant neoplasm of cervix uteri; Z85.038 Personal history of other malignant neoplasm of large intestine; Z92.3 Personal history of irradiation; Z87.891 Personal history of nicotine dependence
CPT/HCPCS: 36415; 36430; 85014; 85018; 86850; 86900; 86901; J1940; P9016

== ENCOUNTER 2017-08-09 11:55 | Day surgery (SDC) | payer MEDICARE, MEDICAID ==
[2017-08-08 12:51] VITALS: BMI 34.2
--- NOTE | 2017-08-09 14:35 | OP ---
DATE OF PROCEDURE: 08/09/2017 PROCEDURE PERFORMED: Esophagogastroduodenoscopy with polypectomy. INDICATION FOR PROCEDURE: Anemia, history of gastric polyp/ulceration. DESCRIPTION OF PROCEDURE: After explaining the risks and benefits of the procedure including risks of bleeding, infection, perforation, reaction to anesthesia and/or pain, informed consent was obtained. The patient was then taken back to the endoscopy suite where deep sedation was administered via propofol and anesthesia support. The standard gastroscope was introduced into the mouth with intubation of the esophagus, stomach and proximal small intestine with the findings below. The patient tolerated the procedure well with no immediate perioperative complications. FINDINGS: Esophagus: Normal appearing mucosa was seen in the proximal, mid and distal esophagus. There was no evidence of erosions, ulcerations, or mass lesions. Stomach: Minimal increased mucosal erythema was seen throughout the entire stomach with a mild mosaic type pattern. Five discrete polyps were seen in the distal gastric body/proximal antrum, two of which measured 2-3mm and the remaining three which measured between 6-10mm in size. The largest three had petechiae-like small ulcerations and overlying clots, but no evidence of active/ recent bleeding. Using hot snare polypectomy, the three large polyps were removed completely and placed in a specimen jar for evaluation. A Hemoclip was then placed over the mucosal defect created by the larger 2 polyps, one Hemoclip each, with good hemostasis achieved. Otherwise, normal appearing mucosa was seen in the antrum and incisura, no abnormalities were seen on gastric retroflexion. Duodenum: Normal appearing mucosa was seen in both the duodenal bulb and second portion of the duodenum. The ampulla of Vater was seen during this examination and was slightly increased in size, but no other apparent abnormality. There was no evidence of ulcerations, erosions or mass lesions. IMPRESSION: 1. Minimal mucosal erythema seen within the gastric mucosa consistent with mild gastropathy. 2. Five polyps seen in the distal gastric body/proximal antrum measuring approximately 6-8 mm in size of the larger three, 1-2 mm for the other 2 polyps. The larger polyps were removed with hot snare polypectomy with Hemoclip x2 placed for hemostasis. 3. No etiology for anemia was seen during this examination. RECOMMENDATIONS: 1. Follow up in the GI clinic in 2 weeks for followup of biopsies obtained today. 2. We will continue proton-pump inhibitor daily given evidence of gastropathy and the gastric polyps. 3. Monitor for any signs of GI bleeding/melena. MTDD
[2017-08-09] MEDS ORDERED: Propofol 200 MG/20 ML VIAL ONE (17:02)
[2017-08-09] MEDS ORDERED: ePHEDrine/0.9% NaCl/PF SYRINGE 50 mg/10 ml ONE (17:02)
[2017-08-09] MEDS ORDERED: PHENYLEPHRINE-NS 100 MCG/ML 10 ML SYRINGE ONE (17:02)
== END 2017-08-09 15:52 | disposition home or self-care (01) ==
LOC: SDC 11:55
PROVIDERS: ATTEND Internal Medicine
PROC: 0DB78ZX Excision of Stomach, Pylorus, Via Natural or Artificial Opening Endoscopic, Diagnostic (ICD-10-PCS; principal; 2017-08-09)
DX: K31.7 Polyp of stomach and duodenum (principal); K29.50 Unspecified chronic gastritis without bleeding; K31.89 Other diseases of stomach and duodenum; D50.0 Iron deficiency anemia secondary to blood loss (chronic); I10 Essential (primary) hypertension; E11.9 Type 2 diabetes mellitus without complications; K21.9 Gastro-esophageal reflux disease without esophagitis; M19.90 Unspecified osteoarthritis, unspecified site; Z85.41 Personal history of malignant neoplasm of cervix uteri; Z92.21 Personal history of antineoplastic chemotherapy; Z85.038 Personal history of other malignant neoplasm of large intestine; Z79.4 Long term (current) use of insulin; Z79.899 Other long term (current) drug therapy; Z90.49 Acquired absence of other specified parts of digestive tract; Z90.710 Acquired absence of both cervix and uterus; Z98.890 Other specified postprocedural states
CPT/HCPCS: 36416; 88305; 88312; J2704

== ENCOUNTER 2017-08-15 13:52 | Outpatient (CLI) | payer MEDICARE, OTHER ==
[2017-08-15] MEDS ORDERED: Sodium Chloride 0.9% 15 ML NEB ONE (14:31)
[2017-08-15] MEDS ORDERED: Lidocaine 2% Jelly 5 ML TUBE ONE (14:31)
--- NOTE | 2017-08-15 15:50 | RAD ---
AP PELVIS RADIOGRAPH: DATE: 08/15/17. HISTORY: Pressure ulcer sacral region. FINDINGS: Osseous detail of the sacrum is limited due to overlying structures. No discrete lytic or sclerotic osseous lesions are seen. There is increased density seen overlying the central portion of the sacru m. However, prior CT scan examination in 2016 demonstrated increased density foci in the subcutaneou s soft tissues posterior to the level of the sacrum which probably accounts for this finding. There are mild degenerative changes in the lower lumbar spine and at the pubic symphysis. Vascular calcifi cation is seen in the abdominal aorta, iliac, and femoral arteries. Postsurgical changes right lower quadrant and pelvis are noted with radiopaque suture material in the right abdomen as well as surgic al clips overlying the pelvis. IMPRESSION: 1. No acute osseous abnormality is seen. 2. Increased density overlying the central sacrum, likely secondary to the increased density materia l in the subcutaneous soft tissues seen on prior CT pelvis on 02/06/16. Finding also seen overlying t he region of the sacrum on stable helper AP view of small bowel study on 02/08/16. 3. No acute osseous abnormality. POS: [facility]
--- NOTE | 2017-08-15 16:26 | PRG ---
DATE OF SERVICE: 08/15/2017 HISTORY: Ms. Lilliam Mariee is a very pleasant 77-year-old who presents to the Wound Center for evaluation of sacral pressure ulceration. The patient is accompanied by her daughter today. The patient previously stated that the sacral pressure ulceration had been present on an intermittent basis for approximately 1 year. The patient stated that she underwent right below-the- knee amputation 7 weeks prior to her initial presentation to the Wound Center at [facility]. The patient stated that the sacral pressure ulceration had worsened since her amputation. The patient is still residing at [facility]. The patient was referred to the Wound Center on 07/10/2016 by her nurse practitioner, Cleo Cm. After being seen in the Wound Center, dressing changes of Medihoney were initiated on a daily basis. The patient's daughter states that Ms. Mariee will be discharged back to [place] from [facility] in the near future. PHYSICAL EXAMINATION: VITAL SIGNS: Temperature 98.3, pulse 89, respirations 18, blood pressure 117/56 , Accu-Chek 178. BACK: A sacral ulceration is present which measures approximately 4.2 x 4.5 cm. The dimensions of the wound at the time of the patient's last visit on 01/2018 were approximately 4.1 x 5.4 cm. The wound is granulating. Necrotic and nonviable tissue present within the wound margins was debrided with an excisional full-thickness debridement with the use of scissors. A sample of necrotic tissue containing bone was sent to pathology for histologic examination. No grossly purulent drainage is associated with the wound. Bone is palpable within the wound margins. No erythema of the skin surrounding the wound is present. No maceration of the skin of the periwound is noted. ASSESSMENT AND PLAN: 1. Sacral pressure ulceration. Dressing changes of Medihoney will be continued on a daily basis after cleansing and irrigation at [facility]. I will see Ms. Mariee again in 3 weeks. Arrangements will also be made for the initiation of negative pressure therapy with dressing changes of the wound VAC 3 times per week at [facility]. Once the patient has been discharged from [facility] to [place], arrangements will be made for dressing changes of the wound VAC with the assistance of Home Health. Dressing changes of Medihoney will be discontinued once the wound VAC becomes available. Plain films of the pelvis will also be obtained today. As stated above, bone is palpable within the wound margins on exam today and a sample of necrotic tissue containing bone was sent to pathology for histologic examination. Orders will also be transmitted to [facility] for the patient to be seen by nutrition in view of the patient's sacral wound. Orders will also be transmitted to [facility] for offloading of the coccygeal region with position changes q.2 hours. The importance of nutrition and offloading in achieving healing of the ulceration has been discussed with both the patient and her daughter. Orders will be transmitted to [facility] for the wound VAC to be placed to settings of 125 mmHg, continuous. Arrangements will also be made for the patient to be seen in consultation by Dr. Monster Morfin for osteomyelitis underlying the sacral pressure ulceration. The patient understands and is in agreement with the preceding treatment plan. 2. Diabetes mellitus. The patient's Accu-Chek in clinic today is 178. The patient has been reminded that for optimal wound healing, her blood glucoses should remain below 150. 3. Hypertension. 4. Gastroesophageal reflux disease. 5. History of cervical carcinoma. 6. History of colon carcinoma. 7. History of anemia. 8. Chronic kidney disease stage 3. 9. Protein calorie malnutrition. MTDD
== END 2017-08-15 13:53 | disposition home or self-care (01) ==
LOC: WCC 13:52 → RAD 13:53
PROVIDERS: ATTEND Family Medicine
DX: L89.159 Pressure ulcer of sacral region, unspecified stage (principal); E11.69 Type 2 diabetes mellitus with other specified complication; E11.22 Type 2 diabetes mellitus with diabetic chronic kidney disease; I12.9 Hypertensive chronic kidney disease with stage 1 through stage 4 chronic kidney disease, or unspecified chronic kidney disease; K21.9 Gastro-esophageal reflux disease without esophagitis; N18.3 Chronic kidney disease, stage 3 (moderate); Z85.41 Personal history of malignant neoplasm of cervix uteri; Z85.038 Personal history of other malignant neoplasm of large intestine; D63.1 Anemia in chronic kidney disease; E46 Unspecified protein-calorie malnutrition; M86.10 Other acute osteomyelitis, unspecified site
CPT/HCPCS: 11042; 36416; 72170; 88307; 88311; A4218

== ENCOUNTER 2017-08-30 16:27 | Inpatient (IN) | payer MEDICARE, OTHER ==
[2017-08-30 19:56] LABS: #Eosinphils 0.2 thou/uL (0.0-0.7); #Monocytes 0.6 thou/uL (0.11-0.59); #Neutrophils 7.2 thou/uL (1.40-6.50); %Basophils 0.2 % (0.0-1.0); %Eosinophils 1.7 % (0.0-10.0); Hemoglobin 10.8 g/dL (12.0-16.0); Mean Corpuscular HGB CONC 32.8 g/dL (32.0-36.0); Mean Corpuscular Hemoglobin 26.6 pg (27.0-31.0); Mean Corpuscular Volume 80.9 fl (81.0-99.0); Mean Platelet Volume 6.5 fL (7.4-10.4); Platelet Count 327 thou/uL (130-400); RBC Distribution Width 15.2 % (11.5-14.5); Red Blood Cell (RBC) Count 4.08 mill/uL (4.20-5.40); White Blood Cell (WBC) Count 9.9 thou/uL (4.8-10.8)
[2017-08-30 20:15] LABS: ALT (SGPT) 13 U/L (8-55); AST (SGOT) 19 U/L (5-34); Albumin 2.4 g/dL (3.4-4.8); Alkaline Phosphatase 152 U/L (40-150); Anion Gap 10 mmol/L (10-20); BUN (Urea Nitrogen) 21 mg/dL (9.8-20.1); Bilirubin, Total 0.4 mg/dL (0.2-1.2); Calc. Creatinine Clearance 0 mL/min (70-130); Calcium 8.4 mg/dL (7.8-10.44); Carbon Dioxide 24 mmol/L (23-31); Chloride 106 mmol/L (98-107); Estimated GFR-MDRD 69; Globulin 4.8 g/dL (2.4-3.5); Glucose 202 mg/dL (83-110); Potassium 3.6 mmol/L (3.5-5.1); Protein, Total 7.2 g/dL (6.0-8.3); Sodium 136 mmol/L (136-145)
--- NOTE | 2017-08-30 20:55 | RAD ---
SACRUM AND COCCYX: 08/30/17 Four views. On the lateral view, the anterior cortex of the lower sacrum is not delineated and I cannot exclude a mass or lytic process at this location. SI joints appear symmetric. Degenerative sclerosis is seen bilaterally. Degenerative changes of the l umbosacral region. IMPRESSION: The anterior cortex of the distal sacrum is not delineated on the lateral view. Consider further eval uation of pelvis with elective MRI to further evaluate. POS: [facility]
[2017-08-30] MEDS ORDERED: Ketorolac Tromethamine 30 MG/ML VIAL ONE (21:01)
[2017-08-30] MEDS ORDERED: Vancomycin HCl 1.25 GM in Sodium Chloride 0.9% 250 ML 250 ML IVPB SCH (22:00)
[2017-08-30] MEDS ORDERED: Piperacillin/Tazobactam 3.375 GM in Sodium Chloride 0.9% 100 ML IVPB SCH (22:15)
[2017-08-30] MEDS ORDERED: Ondansetron ODT 4 MG TAB SL PRN (23:39)
[2017-08-30] MEDS ORDERED: Acetaminophen 325 MG TAB PO PRN (23:39)
[2017-08-30] MEDS ORDERED: Ondansetron HCl/PF 4 MG/2 ML Vial IVP PRN (23:39)
[2017-08-31 01:22] VITALS: BMI 29.6
[2017-08-31] MEDS ORDERED: Dextrose 5% in Water 1,000 ML IV PRN (03:59)
[2017-08-31] MEDS ORDERED: HumaLOG 300 UNITS/3 ML VIAL SC PRN (03:59)
[2017-08-31] MEDS ORDERED: Guaifenesin DM 100-10/5 ML UDCUP PO PRN (03:59)
[2017-08-31] MEDS ORDERED: Dextrose 50% Abboject 50 ML SYRINGE SLOW IVP PRN (03:59)
[2017-08-31] MEDS ORDERED: VANCOMYCIN IVPB PRN (04:22)
--- NOTE | 2017-08-31 04:59 | HP ---
REASON FOR ADMISSION: Infected decubitus ulcer stage 4 on the sacral area, right BKA stump ulcer. HISTORY OF PRESENTING ILLNESS: The patient gives history of being discharged from [facility] on Sunday. She was on wound VAC for her sacral decubitus. Her wound VAC was supposed to come on Sunday for house delivery. Her pain was getting worse in the sacral decubitus area. She had gone to see her wound care doctor and Dr. Morfin, both of whom suggested that she gets hospitalized. Patient has had decubitus ulcer on her sacrum for almost a year now. This has gradually enlarged in size per patient. Patient states this could be because she sits for a long time. She has had a right below-knee- amputation done 3 months back. After her [facility] stay, patient is able to transfer to wheelchair to mobilize. She has not ambulated much. PAST MEDICAL AND SURGICAL HISTORY: History of diabetes mellitus type 2, right BKA, chronic sacral decubitus ulcer, gastric polyps, GERD, hypertension, history of [facility], colon cancer with history of right hemicolectomy, chronic anemia, CKD, protein- calorie malnutrition, cholecystectomy, appendectomy. CURRENT MEDICATIONS: Patient is on Humalog 75/25, 20 units subcutaneous twice daily, aspirin 81 mg daily, [employer] p.r.n. for pain, Lasix 20 mg daily, pioglitazone 15 mg daily, meclizine p.r.n. for dizziness, lisinopril 20 mg p.o. at bedtime, atorvastatin 40 mg p.o. at bedtime. ALLERGIES: No known drug allergies. PERSONAL HISTORY: Does not abuse alcohol or drugs. No history of smoking. She lives alone, but has caregivers during the day and her children help her out. FAMILY HISTORY: Mother of diabetes and its complications. She was 85 years old. Father of AK. Father has had history of AK and at the age of 96 years. CODE STATUS: FULL. Power of seed mill superintendent is her daughter, Ms. Johnston. REVIEW OF SYSTEMS: The following complete review of systems was negative, unless otherwise mentioned in the HPI or below: Constitutional: Weight loss or gain, ability to conduct usual activities. Skin: Rash, itching. Eyes: Double vision, pain. ENT/Mouth: Nose bleeding, neck stiffness, pain, tenderness. Cardiovascular: Palpitations, dyspnea on exertion, orthopnea. Respiratory: Shortness of breath, wheezing, cough, hemoptysis, fever or night sweats. Gastrointestinal: Poor appetite, abdominal pain, heartburn, nausea, vomiting, constipation, or diarrhea. Genitourinary: Urgency, frequency, dysuria, nocturia. Musculoskeletal: Pain, swelling. Neurologic/Psychiatric: Anxiety, depression. Allergy/Immunologic: Skin rash, bleeding tendency. PHYSICAL EXAMINATION: GENERAL: The patient is a 77-year-old female who is currently not in any acute distress. VITAL SIGNS: Blood pressure 150/66, pulse 84 per minute, respiratory rate 18 per minute, temperature 98 degrees Fahrenheit, saturating 99% on room air. NECK: Supple, no elevated JVD. HEENT: Extraocular muscles intact. Pupils reacting to light. Oral cavity, mucous membranes are moist. No exudates or congestion. CARDIOVASCULAR: S1, S2 heard. Regular rhythm. RESPIRATORY: Air entry 2+ bilateral. No rales or rhonchi. ABDOMEN: Soft, bowel sounds heard. No tenderness, rigidity, or guarding. Sacral decubitus has good granulation tissue on the floor, edges are a bit yellow with discharge. EXTREMITIES: The patient has a right BKA and has ulcer measuring 2 x 2 cm with purulent discharge at the tip of her stump. Left lower extremity, patient has calf tenderness. VASCULAR: Peripheral pulses are 1+ bilateral, no ischemic ulcerations or gangrene. CENTRAL NERVOUS SYSTEM: No gross focal deficits seen. Patient is alert, awake , oriented well. PSYCHIATRIC: Patient's mood is euthymic. No hallucinations or delusions. LABORATORY DATA AND X-RAY FINDINGS: White count of 9, H&H 10 and 33, platelet count 327 with MCV of 80 and 72% neutrophils. BUN 21, creatinine 0.8, glucose 202. Lactic acid 1.8, albumin is 2.4. CRP is 8. Sacrum and coccyx x-ray done shows anterior cortex of the distal sacrum is not delineated on the lateral view. CLINICAL IMPRESSION AND PLAN: Patient will be admitted to medical floor for likely infected decubitus ulcer, which is present in the sacral area, for the most part the ulcer floor is healthy except for the edges. Wound cultures will be obtained and she will be placed on vancomycin and Zosyn for now. We will request Dr. Perdomo's consultation for possible debridement. Wound Care consultation for placement of wound VACs. Dr. Morfin will be consulted as well. We will continue her home medications including Lipitor, Lasix, lisinopril, Humalog 75/25, pioglitazone as before. Code status was discussed with patient and she wants to be FULL CODE. Power of seed mill superintendent is her daughter, Ms. Johnston. ROMA
[2017-08-31] MEDS ORDERED: Piperacillin/Tazobactam 3.375 GM in Sodium Chloride 0.9% 100 ML IVPB SCH (05:00)
[2017-08-31] MEDS: Piperacillin/Tazobactam 3.375 GM in Sodium Chloride 0.9% 100 ML IVPB SCH ×2 (05:56→11:38)
[2017-08-31] MEDS ORDERED: Vancomycin HCl 1 GM in Premix Bag 1 BAG IVPB SCH ×2 (06:00→09:00)
[2017-08-31] MEDS: HYDROcodone/Acetaminophen 5/325 mg Tablet PO PRN (06:09)
--- NOTE | 2017-08-31 09:14 | ULT ---
BILATERAL LOWER EXTREMITY VENOUS DUPLEX SONOGRAM: Date: 08/31/17 HISTORY: Bilateral leg pain and edema. FINDINGS: Each common femoral vein and greater saphenous junction, femoral, deep femoral, and popliteal vein, a nd the left posterior tibial vein were evaluated. There is good color and spectral Doppler flow, comp ression, and augmentation. IMPRESSION: No sonographic evidence of deep venous thrombosis within either lower extremity. POS: [facility]
[2017-08-31] MEDS: Enoxaparin Sodium 40 MG/0.4 ML SYRINGE SC SCH (09:55)
[2017-08-31] MEDS: Docusate 100 MG CAP PO SCH ×2 (09:55→20:27)
[2017-08-31] MEDS: Pioglitazone HCl 15 MG TAB PO SCH (09:56)
[2017-08-31] MEDS: Famotidine 20 MG TAB PO SCH ×2 (09:56→20:27)
[2017-08-31] MEDS: Furosemide 20 MG TAB PO SCH (09:56)
[2017-08-31] MEDS: Insulin NPH/Reg Insulin Hm 300 UNITS/3 ML VIAL SC SCH ×2 (10:01→20:28)
--- NOTE | 2017-08-31 11:36 | CON ---
DATE OF CONSULTATION: 08/31/2017 REQUESTING PHYSICIAN: Dr. Tomas. HISTORY OF PRESENT ILLNESS: This is a 77-year-old woman with a history of type 2 diabetes mellitus, chronic kidney disease, essential hypertension and peripheral vascular disease. The patient has a lo ngstanding sacral decubitus ulcer which has been managed with local wound care. She was admitted wit h a suspicion for an infected sacral decubitus ulcer. At the time of my evaluation, the patient is a wake and alert. She denies any fevers or chills. She reported some pain in sacrum prior to admissio n. Pain is currently relieved with analgesics. PAST MEDICAL HISTORY: Significant for type 2 diabetes mellitus, essential hypertension, peripheral v ascular disease, gastroesophageal reflux disease, cervical cancer with previous radiation, colon canc er treated with surgery. Other pertinent past medical history includes chronic decubitus ulcer. SURGICAL HISTORY: Significant for right hemicolectomy, cholecystectomy, appendectomy, most recent ri ght niede-[id number]-[id number] amputation 3 months previously. She is also status post multiple upper and lower endoscopies. SOCIAL HISTORY: The patient lives independently. She denies any cigarette smoking, ethanol or illic it drug abuse. FAMILY HISTORY: Noncontributory for this patient's age. CURRENT MEDICATIONS: I have reviewed current medications. ALLERGIES: The patient denies any known drug allergies. REVIEW OF SYSTEMS: Ten point review of systems essentially unremarkable except for as stated in past medical history and chief complaint. PHYSICAL EXAMINATION: GENERAL: This reveals a 77-year-old woman who is in no acute distress at the time of my evaluation. VITAL SIGNS: Includes blood pressure 107/57, pulse 68, respiratory rate is 18, maximum temperature s luciano admission is 97.8 degrees Fahrenheit. Oxygen saturation is 96% on room air. HEENT: Reveals normocephalic and atraumatic. NECK: She has no jugular venous distention noted. HEART: Reveals regular rate and rhythm. No murmurs or gallops auscultated. LUNGS: Clear to auscultation bilaterally. Breathing regular and unlabored. ABDOMEN: Soft, nontender, and nondistended. EXTREMITIES: She has a right BKA stump which is healed. Left foot is edematous. She has dry gangre ne to the great and index toes. I have examined the sacrococcygeal area where there is a 6 x 3 x 2 c m sacrococcygeal wound. There is good granulation at the base. There is minimum purulence with no f oul odor. The skin edges of the wound are viable. No significant necrotic tissues that requires de bridement is noted. IMPRESSION: 6 x 3 x 2 cm sacral decubitus ulcer with good granulation. RECOMMENDATIONS: Continue local wound care by wound care nursing. No acute surgical indication for this patient at this time. General Surgery will be glad to reevaluate the patient again on demand.
[2017-08-31] MEDS: Acetaminophen 325 MG TAB PO PRN (11:38)
--- NOTE | 2017-08-31 13:55 | PDOC.PN ---
- Subjective Encounter Start Date: 08/31/17 Encounter Start Time: 13:53 Patient seen at bedside. No overnight events, afebrile, still has mild back discomfort. - Objective Resuscitation Status: Resuscitation Status FULL:Full Resuscitation MAR Reviewed: Yes Vital Signs & Weight: Vital Signs (12 hours) Temp Pulse Pulse Resp BP BP Pulse Ox 08/31/17 08:03 96 129/49 L 08/31/17 08:00 97.8 F 68 18 145/69 H 99 08/31/17 07:57 97.5 F L 68 18 107/57 L 96 08/31/17 04:00 97.5 F L 76 18 157/76 H 97 Weight Admit Weight 167 lb 6.4 oz Weight 167 lb 6.4 oz Result Diagrams: 08/30/17 19:47 08/30/17 19:47 Additional Labs: Accuchecks 08/31/17 08/31/17 08/31/17 11:10 08:51 00:08 POC Glucose 140 H 138 H 134 H Phys Exam - Physical Examination Constitutional: NAD HEENT: moist MMs Neck: no JVD Respiratory: clear to auscultation bilateral Cardiovascular: RRR Gastrointestinal: soft Musculoskeletal: no edema R BKA Neurological: moves all 4 limbs Psychiatric: A&O x 3 Deviation from normal: 6x3x2 cm sacral decubitus ulcer with granulation tissue Dx/Plan (1) Sacral decubitus ulcer Status: Acute Qualifiers: Pressure ulcer stage: unstageable Qualified Code(s): L89.150 - Pressure ulcer of sacral region, unstageable (2) DM2 (diabetes mellitus, type 2) Status: Chronic (3) HTN (hypertension) Code(s): I10 - ESSENTIAL (PRIMARY) HYPERTENSION Status: Chronic Qualifiers: Hypertension type: essential hypertension Qualified Code(s): I10 - Essential (primary) hypertension - Plan cont current plan of care, continue antibiotics, PT/OT, social studies teacher * Continue with IV Abx ( Vancomycin/zosyn). Suspect blood cultures will be negative and if so transition to PO abx for short course * Appreciate GS input- no acute debridement needed at this time * Wound care/Wound Vac * PT/OT
--- NOTE | 2017-08-31 15:03 | CON ---
DATE OF CONSULTATION: 08/31/2017 REASON FOR CONSULTATION: Decubitus ulcer. HISTORY OF PRESENT ILLNESS: A 77-year-old patient, history of type 2 diabetes with peripheral vascul ar disease, prior recent right below knee amputation and chronic sacral decubitus ulcer which has pro gressed to stage IV with osteomyelitis of the sacrum proven by biopsy. The patient was admitted ana m use of enlargement of the ulcer. No headaches, visual symptoms, sore throat, odynophagia, or dysphag ia. No dyspnea or chest pain. No abdominal pain. Voiding without difficulty. No diarrhea. She sp ends most of the time sitting on a chair and that may be reason for her ulcer, which developed after the amputation due to mobility issues. She has been tried for prosthesis and they are working on it. She has developed ulcerated area with drainage at the bottom of the BKA stump site, which has been managed conservatively. PAST MEDICAL HISTORY: Type 2 diabetes, peripheral vascular disease, below knee amputation, sacral de cubitus ulcer, polyps, hypertension, cervical cancer with hysterectomy and radiation therapy, colon c ancer in remission after surgery, cholecystectomy, and appendectomy. MEDICATIONS: Currently Tylenol, Lipitor, dextrose IV, Lovenox, Pepcid, Lasix, glucagon, insulin, lis inopril, Zosyn, and vancomycin. FAMILY HISTORY: Type 2 diabetes. SOCIAL HISTORY: Never a smoker. Lives alone with caretakers. PHYSICAL EXAMINATION: VITAL SIGNS: T-max 97.8, blood pressure 140/69, pulse 68, respirations 18, O2 sat 99. SKIN: Hyperkeratosis of the skin of feet with onychodystrophy, small ulcer base of the left fifth to e, around 3 x 4.5 cm stage 4 presacral ulcer within the edge of penetration into the sacrum with bone exposure. Remainder with fairly fresh granulation tissue with significant undermining towards the l eft. Hyperpigmentation surrounding the ulcer and some skin maceration, shallow ulceration elbow, and yellow scab covering the base of the right BKA stump ulcer. Peripheral IV access. No Tobar cathete r. HEENT: Ocular movements conjugate. Oral cavity moist. NECK: Supple. LUNGS: Symmetric clear breath sounds. HEART: S1, S2, regular rate. ABDOMEN: Soft. She has upper and lower artificial dentures. No bladder distention. EXTREMITIES: Pulses are diminished in the left lower extremity, faintly palpable popliteal pulses. She is able to move extremities without focal weakness. NEUROLOGIC: Cognitive function appears to be intact. LABORATORY DATA: White cell count 9.9, hemoglobin 10.8, platelets 327. Sodium 136, creatinine 0.8. Transaminases normal. CRP 8, albumin 2.4. Unfortunately, no microbiology samples have been submitt ed from the ulcer. The patient has a bone biopsy by Dr. Posadas done on 08/16/2017, which showed acu te osteomyelitis, extensive acute inflammation, occasional abscess formation seen as well. ASSESSMENT: 1. Mobility impairment following BKA. 2. Type 2 diabetes. 3. Peripheral vascular disease. 4. Sacrum coccygeal decubitus ulcer with osteomyelitis. DISCUSSION: Surgery has evaluated the patient and feels that surgical treatment is not needed. Depe nding on progress, she may eventually need surgical debridement of the areas of exposed bone. Unfort unately, no samples have been submitted for culture and therefore will have to treat without specific microbiology input. We will therefore have to go with a broad regimen including either Invanz plus vancomycin or Rocephin, Flagyl, and vancomycin, and end date of therapy will be 10/13/2017. Weekly l abs including CBC, CRP, vancomycin trough and CMP and PICC line placement. DISPOSITION: We will likely involve transfer to a jail unit since the patient lives alone at home and would not be able to manage the treatment, but we will get catalytic case operator input to see if we can set her up with home treatment. I believe that she deserves. She will need to be admitted to a supervise setting.
[2017-08-31] MEDS: cefTRIAXone\\ROCEPHIN 2 GM in Sodium Chloride 0.9% 100 ML IVPB SCH (15:36)
[2017-08-31] MEDS: metroNIDAZOLE 500 MG TAB PO SCH ×2 (15:36→20:28)
[2017-08-31] MEDS: Atorvastatin Calcium 40 MG TAB PO SCH (20:27)
[2017-08-31] MEDS: Lisinopril 20 MG TAB PO SCH (20:27)
[2017-08-31] MEDS ORDERED: Vancomycin HCl 1.25 GM in Sodium Chloride 0.9% 250 ML 250 ML IVPB SCH (23:00)
[2017-09-01 05:00] LABS: #Eosinphils 0.3 thou/uL (0.0-0.7); #Lymphocytes 2.2 thou/uL (1.20-3.40); #Monocytes 0.7 thou/uL (0.11-0.59); #Neutrophils 6.1 thou/uL (1.40-6.50); %Basophils 0.5 % (0.0-1.0); %Eosinophils 3.4 % (0.0-10.0); %Lymphocytes 23.6 % (21.0-51.0); %Monocytes 7.4 % (0.0-10.0); %Neutrophils 65.1 % (42.0-75.0); Hemoglobin 9.3 g/dL (12.0-16.0); Mean Corpuscular HGB CONC 31.3 g/dL (32.0-36.0); Mean Corpuscular Volume 83.1 fl (81.0-99.0); Mean Platelet Volume 6.9 fL (7.4-10.4); Platelet Count 339 thou/uL (130-400); RBC Distribution Width 15.1 % (11.5-14.5); Red Blood Cell (RBC) Count 3.57 mill/uL (4.20-5.40); White Blood Cell (WBC) Count 9.3 thou/uL (4.8-10.8)
[2017-09-01 05:19] LABS: Anion Gap 10 mmol/L (10-20); BUN (Urea Nitrogen) 17 mg/dL (9.8-20.1); Calc. Creatinine Clearance 75 mL/min (70-130); Carbon Dioxide 23 mmol/L (23-31); Chloride 108 mmol/L (98-107); Estimated GFR-MDRD 76; Glucose 77 mg/dL (83-110); Potassium 3.4 mmol/L (3.5-5.1); Sodium 138 mmol/L (136-145)
[2017-09-01] MEDS: Pioglitazone HCl 15 MG TAB PO SCH (08:45)
[2017-09-01] MEDS: Enoxaparin Sodium 40 MG/0.4 ML SYRINGE SC SCH (08:45)
[2017-09-01] MEDS: Furosemide 20 MG TAB PO SCH (08:46)
[2017-09-01] MEDS: Insulin NPH/Reg Insulin Hm 300 UNITS/3 ML VIAL SC SCH (08:46)
[2017-09-01] MEDS: metroNIDAZOLE 500 MG TAB PO SCH ×3 (08:46→21:16)
[2017-09-01] MEDS: Famotidine 20 MG TAB PO SCH ×2 (08:46→21:16)
[2017-09-01] MEDS: Docusate 100 MG CAP PO SCH ×2 (08:47→21:16)
[2017-09-01] MEDS: HYDROcodone/Acetaminophen 5/325 mg Tablet PO PRN ×2 (08:50→21:21)
[2017-09-01] MEDS ORDERED: Magnesium Sulfate 2 GM in Sodium Chloride 0.9% 100 ML IVPB SCH (14:00)
[2017-09-01] MEDS: cefTRIAXone\\ROCEPHIN 2 GM in Sodium Chloride 0.9% 100 ML IVPB SCH (16:59)
[2017-09-01] MEDS: Potassium Chloride 10 MEQ TAB PO SCH (16:59)
--- NOTE | 2017-09-01 20:04 | PDOC.PN ---
- Subjective Encounter Start Date: 09/01/17 Encounter Start Time: 12:30 Patient seen and examined. No new complaints. No overnight events - Objective Resuscitation Status: Resuscitation Status FULL:Full Resuscitation MAR Reviewed: Yes Vital Signs & Weight: Weight Admit Weight 167 lb 6.4 oz Weight 167 lb 6.4 oz I&O: 08/31/17 09/01/17 09/02/17 06:59 06:59 06:59 Intake Total 180 420 Balance 180 420 Result Diagrams: 09/02/17 03:56 09/02/17 03:56 Additional Labs: Accuchecks 09/01/17 09/01/17 09/01/17 15:56 11:14 04:28 POC Glucose 181 H 110 90 08/31/17 19:45 POC Glucose 234 H Phys Exam - Physical Examination Constitutional: NAD Respiratory: no wheezing, no rhonchi Cardiovascular: RRR, no rub Gastrointestinal: soft, non-tender, positive bowel sounds Musculoskeletal: no edema Psychiatric: A&O x 3 Dx/Plan - Plan DVT proph w/lovenox IMPRESSION: 1. Infected decubitus ulcer 2. DM2 3. PVD 4. HTN 5. Hypomagnesemia (1.2) PLAN: * Cont Atbx per ID * DC planning * Will prob need placement * Cont sliding scale * Replace Mg Review of Systems - Review of Systems Respiratory: negative: Cough, Dry, Shortness of Breath, Hemoptysis, SOB with Excertion, Pleuritic Pain, Sputum, Wheezing Cardiovascular: negative: chest pain, palpitations, orthopnea, paroxysmal nocturnal dyspnea, edema, light headedness - Medications/Allergies Allergies/Adverse Reactions: Allergies Allergy/AdvReac Type Severity Reaction Status Date / Time No Known Allergies Allergy Verified 08/31/17 01:12 Medications: Current Medications Acetaminophen (Tylenol) 650 mg PO Q4H PRN PRN Reason: Headache/Fever or Pain Last Admin: 08/31/17 11:38 Dose: 650 mg Hydrocodone Bitart/Acetaminophen ([place] 5/325) 1 tab PO Q8H PRN PRN Reason: Moderate Pain (4-6) Last Admin: 09/01/17 08:50 Dose: 1 tab Atorvastatin Calcium (Lipitor) 40 mg PO HS [facility] Last Admin: 08/31/17 20:27 Dose: 40 mg Dextrose/Water (Dextrose 50%) 25 gm SLOW IVP PRN PRN PRN Reason: Hypoglycemia Docusate Sodium (Colace) 100 mg PO BID [facility] Last Admin: 09/01/17 08:47 Dose: 100 mg Enoxaparin Sodium (Lovenox) 40 mg SC 0900 [facility] Last Admin: 09/01/17 08:45 Dose: 40 mg Famotidine (Pepcid) 20 mg PO BID [facility] Last Admin: 09/01/17 08:46 Dose: 20 mg Furosemide (Lasix) 20 mg PO DAILY [facility] Last Admin: 09/01/17 08:46 Dose: 20 mg Glucagon (Glucagon) 1 mg IM PRN PRN PRN Reason: Hypoglycemia Guaifenesin/Dextromethorphan (Robitussin Dm) 15 ml PO Q4H PRN PRN Reason: Cough Dextrose/Water (D5w) 1,000 mls @ 0 mls/hr IV .Q0M PRN; As Directed PRN Reason: Hypoglycemia Vancomycin HCl 1.25 gm/ Sodium (Chloride) 250 mls @ 166.667 mls/hr IVPB 2300 [facility] Last Admin: 08/31/17 23:23 Dose: 250 mls Ceftriaxone Sodium 2 gm/ (Sodium Chloride) 100 mls @ 200 mls/hr IVPB Q24HR@ 1600 [facility] Last Admin: 09/01/17 16:59 Dose: 100 mls Insulin Human Lispro (Humalog) 0 units SC .MODERATE SLIDING SC PRN PRN Reason: Moderate Correctional Scale Insulin Human Lispro (Humalog) 0 units SC .BEDTIME SLIDING SC PRN PRN Reason: Bedtime Correctional Scale Insulin Human NPH (Humulin N) 10 unit SC BID [facility] Lisinopril (Zestril) 20 mg PO HS [facility] Last Admin: 08/31/17 20:27 Dose: 20 mg Magnesium Chloride (Slow-Mag) 128 mg PO BID [facility] Metronidazole (Flagyl) 500 mg PO TID [facility] Last Admin: 09/01/17 16:59 Dose: 500 mg Miscellaneous Medication (Pharmacy To Dose) 1 each IVPB PRN PRN PRN Reason: OSTEO Pioglitazone HCl (Actos) 15 mg PO DAILY [facility] Last Admin: 09/01/17 08:45 Dose: 15 mg Potassium Chloride (Klor-Con 10) 10 meq PO BID-[facility] Last Admin: 09/01/17 16:59 Dose: 10 meq
[2017-09-01] MEDS: Atorvastatin Calcium 40 MG TAB PO SCH (21:15)
[2017-09-01] MEDS: Lisinopril 20 MG TAB PO SCH (21:16)
[2017-09-01] MEDS: NPH, Human Insulin Isophane 300 UNIT/3 ML VIAL SC SCH (21:17)
[2017-09-01] MEDS: Magnesium Chloride 64 MG TAB PO SCH (21:17)
[2017-09-01] MEDS: HumaLOG 300 UNITS/3 ML VIAL SC PRN (21:21)
[2017-09-01 22:11] LABS: Vancomycin, Trough 13.3 ug/mL
[2017-09-01] MEDS: Vancomycin HCl 1.5 GM in Sodium Chloride 0.9% 250 ML 300 ML IVPB SCH (23:13)
[2017-09-02 05:05] LABS: #Eosinphils 0.3 thou/uL (0.0-0.7); #Lymphocytes 1.9 thou/uL (1.20-3.40); #Monocytes 0.7 thou/uL (0.11-0.59); #Neutrophils 5.1 thou/uL (1.40-6.50); %Basophils 0.4 % (0.0-1.0); %Eosinophils 3.3 % (0.0-10.0); %Lymphocytes 23.4 % (21.0-51.0); %Monocytes 9.2 % (0.0-10.0); %Neutrophils 63.7 % (42.0-75.0); Hemoglobin 8.9 g/dL (12.0-16.0); Mean Corpuscular HGB CONC 32.1 g/dL (32.0-36.0); Mean Corpuscular Hemoglobin 26.8 pg (27.0-31.0); Mean Corpuscular Volume 83.5 fl (81.0-99.0); Platelet Count 300 thou/uL (130-400); RBC Distribution Width 15.2 % (11.5-14.5); Red Blood Cell (RBC) Count 3.32 mill/uL (4.20-5.40)
[2017-09-02 05:45] LABS: Anion Gap 9 mmol/L (10-20); BUN (Urea Nitrogen) 17 mg/dL (9.8-20.1); BUN/Creatinine Ratio 21.52; Calc. Creatinine Clearance 70 mL/min (70-130); Calcium 7.8 mg/dL (7.8-10.44); Carbon Dioxide 25 mmol/L (23-31); Chloride 108 mmol/L (98-107); Estimated GFR-MDRD 70; Glucose 96 mg/dL (83-110); Magnesium 1.7 mg/dL (1.6-2.6); Phosphorus 2.5 mg/dL (2.3-4.7); Potassium 3.5 mmol/L (3.5-5.1); Sodium 138 mmol/L (136-145)
[2017-09-02] MEDS: Potassium Chloride 10 MEQ TAB PO SCH ×2 (08:18→16:04)
[2017-09-02] MEDS: Furosemide 20 MG TAB PO SCH (08:18)
[2017-09-02] MEDS: Docusate 100 MG CAP PO SCH ×2 (08:18→21:36)
[2017-09-02] MEDS: Famotidine 20 MG TAB PO SCH ×2 (08:18→21:36)
[2017-09-02] MEDS: Pioglitazone HCl 15 MG TAB PO SCH (08:19)
[2017-09-02] MEDS: metroNIDAZOLE 500 MG TAB PO SCH ×3 (08:19→21:39)
[2017-09-02] MEDS: Magnesium Chloride 64 MG TAB PO SCH ×2 (08:19→21:38)
[2017-09-02] MEDS: Enoxaparin Sodium 40 MG/0.4 ML SYRINGE SC SCH (08:19)
[2017-09-02] MEDS: NPH, Human Insulin Isophane 300 UNIT/3 ML VIAL SC SCH ×2 (08:19→21:39)
[2017-09-02] MEDS: cefTRIAXone\\ROCEPHIN 2 GM in Sodium Chloride 0.9% 100 ML IVPB SCH (16:04)
[2017-09-02] MEDS: Atorvastatin Calcium 40 MG TAB PO SCH (21:36)
[2017-09-02] MEDS: Lisinopril 20 MG TAB PO SCH (21:38)
[2017-09-02] MEDS: HumaLOG 300 UNITS/3 ML VIAL SC PRN (21:40)
[2017-09-02] MEDS: HYDROcodone/Acetaminophen 5/325 mg Tablet PO PRN (21:41)
--- NOTE | 2017-09-02 22:17 | PDOC.PN ---
- Subjective Encounter Start Date: 09/02/17 Encounter Start Time: 11:00 Patient seen and examined. No new complaints. No overnight events - Objective Resuscitation Status: Resuscitation Status FULL:Full Resuscitation MAR Reviewed: Yes Vital Signs & Weight: Vital Signs (12 hours) Temp Pulse Resp BP BP Pulse Ox 09/02/17 21:38 131/69 09/02/17 20:00 98.0 F 70 20 131/69 99 Weight Admit Weight 167 lb 6.4 oz Weight 167 lb 6.4 oz I&O: 09/01/17 09/02/17 09/03/17 06:59 06:59 06:59 Intake Total 180 420 900 Balance 180 420 900 Result Diagrams: 09/02/17 03:56 09/02/17 03:56 Additional Labs: Accuchecks 09/02/17 09/02/17 09/02/17 19:48 15:54 14:50 POC Glucose 230 H 139 H 154 H 09/02/17 05:58 POC Glucose 105 Phys Exam - Physical Examination Constitutional: NAD Respiratory: no wheezing, no rhonchi Cardiovascular: RRR, no rub Gastrointestinal: soft, non-tender, positive bowel sounds Dx/Plan - Plan DVT proph w/lovenox IMPRESSION: 1. Infected decubitus ulcer 2. DM2 3. PVD 4. HTN 5. Hypomagnesemia - replaced PLAN: * DC planning * Await placement * Cont sliding scale with NPH * Cont Atbx per ID * Cont Wound care Review of Systems - Review of Systems Respiratory: negative: Cough, Dry, Shortness of Breath, Hemoptysis, SOB with Excertion, Pleuritic Pain, Sputum, Wheezing Cardiovascular: negative: chest pain, palpitations, orthopnea, paroxysmal nocturnal dyspnea, edema, light headedness - Medications/Allergies Allergies/Adverse Reactions: Allergies Allergy/AdvReac Type Severity Reaction Status Date / Time No Known Allergies Allergy Verified 08/31/17 01:12 Medications: Current Medications Acetaminophen (Tylenol) 650 mg PO Q4H PRN PRN Reason: Headache/Fever or Pain Last Admin: 08/31/17 11:38 Dose: 650 mg Hydrocodone Bitart/Acetaminophen ([place] 5/325) 1 tab PO Q8H PRN PRN Reason: Moderate Pain (4-6) Last Admin: 09/02/17 21:41 Dose: 1 tab Atorvastatin Calcium (Lipitor) 40 mg PO HS [facility] Last Admin: 09/02/17 21:36 Dose: 40 mg Dextrose/Water (Dextrose 50%) 25 gm SLOW IVP PRN PRN PRN Reason: Hypoglycemia Docusate Sodium (Colace) 100 mg PO BID [facility] Last Admin: 09/02/17 21:36 Dose: Not Given Enoxaparin Sodium (Lovenox) 40 mg SC 0900 [facility] Last Admin: 09/02/17 08:19 Dose: 40 mg Famotidine (Pepcid) 20 mg PO BID [facility] Last Admin: 09/02/17 21:36 Dose: 20 mg Furosemide (Lasix) 20 mg PO DAILY [facility] Last Admin: 09/02/17 08:18 Dose: 20 mg Glucagon (Glucagon) 1 mg IM PRN PRN PRN Reason: Hypoglycemia Guaifenesin/Dextromethorphan (Robitussin Dm) 15 ml PO Q4H PRN PRN Reason: Cough Dextrose/Water (D5w) 1,000 mls @ 0 mls/hr IV .Q0M PRN; As Directed PRN Reason: Hypoglycemia Ceftriaxone Sodium 2 gm/ (Sodium Chloride) 100 mls @ 200 mls/hr IVPB Q24HR@ 1600 [facility] Last Admin: 09/02/17 16:04 Dose: 100 mls Vancomycin HCl 1.5 gm/ Sodium (Chloride) 300 mls @ 200 mls/hr IVPB 2300 [facility] Last Admin: 09/01/17 23:13 Dose: 300 mls Insulin Human Lispro (Humalog) 0 units SC .MODERATE SLIDING SC PRN PRN Reason: Moderate Correctional Scale Insulin Human Lispro (Humalog) 0 units SC .BEDTIME SLIDING SC PRN PRN Reason: Bedtime Correctional Scale Last Admin: 09/02/17 21:40 Dose: 2 unit Insulin Human NPH (Humulin N) 10 unit SC BID [facility] Last Admin: 09/02/17 21:39 Dose: 10 unit Lisinopril (Zestril) 20 mg PO HS [facility] Last Admin: 09/02/17 21:38 Dose: 20 mg Magnesium Chloride (Slow-Mag) 128 mg PO BID [facility] Last Admin: 09/02/17 21:38 Dose: 128 mg Metronidazole (Flagyl) 500 mg PO TID [facility] Last Admin: 09/02/17 21:39 Dose: 500 mg Miscellaneous Medication (Pharmacy To Dose) 1 each IVPB PRN PRN PRN Reason: OSTEO Pioglitazone HCl (Actos) 15 mg PO DAILY [facility] Last Admin: 09/02/17 08:19 Dose: 15 mg Potassium Chloride (Klor-Con 10) 10 meq PO BID-[facility] Last Admin: 09/02/17 16:04 Dose: 10 meq
[2017-09-02] MEDS: Vancomycin HCl 1.5 GM in Sodium Chloride 0.9% 250 ML 300 ML IVPB SCH (23:12)
[2017-09-03] MEDS: Acetaminophen 325 MG TAB PO PRN (05:24)
[2017-09-03] MEDS: Potassium Chloride 10 MEQ TAB PO SCH ×2 (08:45→16:38)
[2017-09-03] MEDS: Famotidine 20 MG TAB PO SCH ×2 (08:45→20:06)
[2017-09-03] MEDS: Furosemide 20 MG TAB PO SCH (08:46)
[2017-09-03] MEDS: metroNIDAZOLE 500 MG TAB PO SCH ×3 (08:46→20:06)
[2017-09-03] MEDS: Docusate 100 MG CAP PO SCH ×2 (08:46→20:07)
[2017-09-03] MEDS: Magnesium Chloride 64 MG TAB PO SCH ×3 (08:46→23:44)
[2017-09-03] MEDS: NPH, Human Insulin Isophane 300 UNIT/3 ML VIAL SC SCH ×2 (08:47→20:07)
[2017-09-03] MEDS: Pioglitazone HCl 15 MG TAB PO SCH (08:50)
--- NOTE | 2017-09-03 13:31 | SPC ---
ULTRASOUND GUIDED LEFT UPPER EXTREMITY PICC LINE PLACEMENT: HISTORY: Osteomyelitis. IV antibiotics required. COMPARISON: None. EXPOSURE: 0.5 minutes. 2578 mGy*^cm2. FINDINGS: Successful left upper extremity PICC line placement with ultrasound guidance. A 45 cm single-lumen 5 [place] catheter terminates in the SVC/right atrial junction via the left brachial vein approach. Single lumen flushes and aspirated without difficulty. TECHNIQUE: Consent obtained to perform a left upper extremity PICC line placement with ultrasound guidance. The left arm was prepped and draped in sterile fashion. 1% Lidocaine, buffered with sodium bicarbonate, was used for local anesthesia. Under ultrasound guidance, a micropuncture needle was used to cannul ate the brachial vein. A 0.018 guidewire extends to the level of the superior vena cava. Under fluo roscopy, the wire was advanced to the inferior vena cava to document venous access. The wire was sub sequently pulled back to the SVC/right atrial junction. The tract was dilated. A single-lumen 5 Anthony nch catheter was advanced over the wire. The wire was removed. Trim length is 45 cm. Catheter flus hes and aspirated without difficulty. IMPRESSION: Technically successful ultrasound-guided left upper extremity PICC line placement. POS: [facility]
--- NOTE | 2017-09-03 13:55 | PDOC.PN ---
- Subjective Encounter Start Date: 09/03/17 Encounter Start Time: 13:53 Subjective: feels OK. walking w the help of PT -: no fever/chills/pain - Objective Resuscitation Status: Resuscitation Status FULL:Full Resuscitation MAR Reviewed: Yes Vital Signs & Weight: Vital Signs (12 hours) Temp Pulse Resp BP Pulse Ox 09/03/17 08:00 98.0 F 70 18 99 09/03/17 07:47 98.0 F 70 18 146/67 H 99 Weight Admit Weight 167 lb 6.4 oz Weight 167 lb 6.4 oz I&O: 09/02/17 09/03/17 09/04/17 06:59 06:59 06:59 Intake Total 420 950 180 Balance 420 950 180 Result Diagrams: 09/02/17 03:56 09/02/17 03:56 Additional Labs: Accuchecks 09/03/17 09/03/17 09/02/17 11:41 05:09 19:48 POC Glucose 109 101 230 H 09/02/17 09/02/17 09/02/17 15:54 14:50 11:13 POC Glucose 139 H 154 H 157 H Microbiology 08/31/17 05:55 Buttock - Decubitis Bacterial Culture - Preliminary Streptococcus agalactiae Gp. B 08/30/17 21:28 Venous blood - Right Arm Blood Culture - Preliminary NO GROWTH AT 48 HOURS 08/30/17 21:17 Venous blood - Left Arm Blood Culture - Preliminary NO GROWTH AT 48 HOURS Phys Exam - Physical Examination Constitutional: NAD HEENT: PERRLA, moist MMs, sclera anicteric, oral pharynx no lesions Neck: no nodes, no JVD, supple, full ROM Respiratory: no wheezing, no rales, no rhonchi, clear to auscultation bilateral Cardiovascular: RRR, no significant murmur, no rub, gallop Gastrointestinal: soft, non-tender, no distention, positive bowel sounds Musculoskeletal: no edema, pulses present Neurological: non-focal, normal sensation, moves all 4 limbs Psychiatric: normal affect, A&O x 3 Skin: no rash Dx/Plan (1) Sacral osteomyelitis Code(s): M46.28 - OSTEOMYELITIS OF VERTEBRA, SACRAL AND SACROCOCCYGEAL REGION Status: Acute (2) Sacral decubitus ulcer Status: Acute Qualifiers: Pressure ulcer stage: unstageable Qualified Code(s): L89.150 - Pressure ulcer of sacral region, unstageable (3) CKD (chronic kidney disease) stage 2, GFR 60-89 ml/min Code(s): N18.2 - CHRONIC KIDNEY DISEASE, STAGE 2 (MILD) Status: Chronic (4) DM2 (diabetes mellitus, type 2) Status: Chronic (5) HTN (hypertension) Code(s): I10 - ESSENTIAL (PRIMARY) HYPERTENSION Status: Chronic Qualifiers: Hypertension type: essential hypertension Qualified Code(s): I10 - Essential (primary) hypertension - Plan continue antibiotics, PT/OT, social worker assistant, incentive spirometry, out of bed/ ambulate, DVT proph w/SCDs Cont skilled nursing IV ABx. PICC placed -: Pt declines SNIF placement. HH set up for IV infusion -: Wound Vac . OP f/u w Wound care. -: DC home likley in next 24 chours if remains stable. -: am labs * . Review of Systems - Review of Systems Constitutional: weakness, malaise. negative: fever, chills, sweats, other Respiratory: negative: Cough, Dry, Shortness of Breath, Hemoptysis, SOB with Excertion, Pleuritic Pain, Sputum, Wheezing Cardiovascular: negative: chest pain, palpitations, orthopnea, paroxysmal nocturnal dyspnea, edema, light headedness, other Gastrointestinal: negative: Nausea, Vomiting, Abdominal Pain, Diarrhea, Constipation, Melena, Hematochezia, Other Genitourinary: negative: Dysuria, Frequency, Incontinence, Hematuria, Retention , Other Musculoskeletal: negative: Neck Pain, Shoulder Pain, Arm Pain, Back Pain, Hand Pain, Leg Pain, Foot Pain, Other Skin: negative: Rash, Lesions, Mateus, Bruising, Other Neurological: negative: Numbness, Incoordination, Change in Speech, Confusion, Seizures, Other - Medications/Allergies Allergies/Adverse Reactions: Allergies Allergy/AdvReac Type Severity Reaction Status Date / Time No Known Allergies Allergy Verified 08/31/17 01:12 Medications: Current Medications Acetaminophen (Tylenol) 650 mg PO Q4H PRN PRN Reason: Headache/Fever or Pain Last Admin: 09/03/17 05:24 Dose: 650 mg Hydrocodone Bitart/Acetaminophen ([place] 5/325) 1 tab PO Q8H PRN PRN Reason: Moderate Pain (4-6) Last Admin: 09/02/17 21:41 Dose: 1 tab Atorvastatin Calcium (Lipitor) 40 mg PO HS [facility] Last Admin: 09/02/17 21:36 Dose: 40 mg Dextrose/Water (Dextrose 50%) 25 gm SLOW IVP PRN PRN PRN Reason: Hypoglycemia Docusate Sodium (Colace) 100 mg PO BID [facility] Last Admin: 09/03/17 08:46 Dose: Not Given Enoxaparin Sodium (Lovenox) 40 mg SC 0900 [facility] Last Admin: 09/02/17 08:19 Dose: 40 mg Famotidine (Pepcid) 20 mg PO BID [facility] Last Admin: 09/03/17 08:45 Dose: 20 mg Furosemide (Lasix) 20 mg PO DAILY [facility] Last Admin: 09/03/17 08:46 Dose: 20 mg Glucagon (Glucagon) 1 mg IM PRN PRN PRN Reason: Hypoglycemia Guaifenesin/Dextromethorphan (Robitussin Dm) 15 ml PO Q4H PRN PRN Reason: Cough Dextrose/Water (D5w) 1,000 mls @ 0 mls/hr IV .Q0M PRN; As Directed PRN Reason: Hypoglycemia Ceftriaxone Sodium 2 gm/ (Sodium Chloride) 100 mls @ 200 mls/hr IVPB Q24HR@ 1600 [facility] Last Admin: 09/02/17 16:04 Dose: 100 mls Vancomycin HCl 1.5 gm/ Sodium (Chloride) 300 mls @ 200 mls/hr IVPB 2300 [facility] Last Admin: 09/02/17 23:12 Dose: Not Given Insulin Human Lispro (Humalog) 0 units SC .MODERATE SLIDING SC PRN PRN Reason: Moderate Correctional Scale Insulin Human Lispro (Humalog) 0 units SC .BEDTIME SLIDING SC PRN PRN Reason: Bedtime Correctional Scale Last Admin: 09/02/17 21:40 Dose: 2 unit Insulin Human NPH (Humulin N) 10 unit SC BID [facility] Last Admin: 09/03/17 08:47 Dose: 10 unit Lisinopril (Zestril) 20 mg PO [facility] Last Admin: 09/02/17 21:38 Dose: 20 mg Magnesium Chloride (Slow-Mag) 128 mg PO BID [facility] Last Admin: 09/03/17 08:46 Dose: 128 mg Metronidazole (Flagyl) 500 mg PO TID [facility] Last Admin: 09/03/17 08:46 Dose: 500 mg Miscellaneous Medication (Pharmacy To Dose) 1 each IVPB PRN PRN PRN Reason: OSTEO Pioglitazone HCl (Actos) 15 mg PO DAILY [facility] Last Admin: 09/03/17 08:50 Dose: 15 mg Potassium Chloride (Klor-Con 10) 10 meq PO BID-[facility] Last Admin: 09/03/17 08:45 Dose: 10 meq
[2017-09-03] MEDS: Enoxaparin Sodium 40 MG/0.4 ML SYRINGE SC SCH (16:21)
[2017-09-03] MEDS: cefTRIAXone\\ROCEPHIN 2 GM in Sodium Chloride 0.9% 100 ML IVPB SCH (16:38)
[2017-09-03] MEDS ORDERED: Heparin 1,000 UNITS/ML VIAL ONE (19:46)
[2017-09-03] MEDS: Lisinopril 20 MG TAB PO SCH (20:06)
[2017-09-03] MEDS: Atorvastatin Calcium 40 MG TAB PO SCH (20:06)
[2017-09-03 22:26] LABS: Vancomycin, Trough 9.7 ug/mL
[2017-09-03] MEDS: Vancomycin HCl 1.5 GM in Sodium Chloride 0.9% 250 ML 300 ML IVPB SCH (23:44)
[2017-09-04 05:39] LABS: #Eosinphils 0.3 thou/uL (0.0-0.7); #Lymphocytes 1.8 thou/uL (1.20-3.40); #Monocytes 0.7 thou/uL (0.11-0.59); #Neutrophils 6.1 thou/uL (1.40-6.50); %Basophils 0.2 % (0.0-1.0); %Eosinophils 3.1 % (0.0-10.0); %Lymphocytes 20.1 % (21.0-51.0); %Monocytes 7.8 % (0.0-10.0); %Neutrophils 68.8 % (42.0-75.0); Mean Corpuscular HGB CONC 31.8 g/dL (32.0-36.0); Mean Corpuscular Hemoglobin 25.9 pg (27.0-31.0); Mean Corpuscular Volume 81.5 fl (81.0-99.0); Mean Platelet Volume 6.9 fL (7.4-10.4); Platelet Count 324 thou/uL (130-400); RBC Distribution Width 15.6 % (11.5-14.5); Red Blood Cell (RBC) Count 3.47 mill/uL (4.20-5.40); White Blood Cell (WBC) Count 8.9 thou/uL (4.8-10.8)
[2017-09-04 05:58] LABS: Anion Gap 10 mmol/L (10-20); BUN (Urea Nitrogen) 16 mg/dL (9.8-20.1); Calc. Creatinine Clearance 68 mL/min (70-130); Calcium 7.8 mg/dL (7.8-10.44); Carbon Dioxide 22 mmol/L (23-31); Chloride 108 mmol/L (98-107); Estimated GFR-MDRD 67; Glucose 198 mg/dL (83-110); Potassium 3.9 mmol/L (3.5-5.1); Sodium 136 mmol/L (136-145)
[2017-09-04 07:29] VITALS: TEMP 98.5
[2017-09-04] MEDS: HYDROcodone/Acetaminophen 5/325 mg Tablet PO PRN (09:28)
[2017-09-04] MEDS: Magnesium Chloride 64 MG TAB PO SCH (09:29)
[2017-09-04] MEDS: Pioglitazone HCl 15 MG TAB PO SCH (09:29)
[2017-09-04] MEDS: Potassium Chloride 10 MEQ TAB PO SCH (09:29)
[2017-09-04] MEDS: metroNIDAZOLE 500 MG TAB PO SCH (09:30)
[2017-09-04] MEDS: Famotidine 20 MG TAB PO SCH (09:30)
[2017-09-04] MEDS: Docusate 100 MG CAP PO SCH (09:30)
[2017-09-04] MEDS: Furosemide 20 MG TAB PO SCH (09:30)
[2017-09-04] MEDS: Enoxaparin Sodium 40 MG/0.4 ML SYRINGE SC SCH (09:30)
[2017-09-04] MEDS: NPH, Human Insulin Isophane 300 UNIT/3 ML VIAL SC SCH (09:31)
[2017-09-04] MEDS ORDERED: cefTRIAXone\\ROCEPHIN 2 GM in Sodium Chloride 0.9% 100 ML IVPB SCH (10:00)
[2017-09-04 10:48] VITALS: BP 105/61
[2017-09-04] MEDS: cefTRIAXone\\ROCEPHIN 2 GM in Sodium Chloride 0.9% 100 ML IVPB SCH (10:51)
--- NOTE | 2017-09-04 14:03 | PDOC.PN ---
- Subjective Encounter Start Date: 09/04/17 Encounter Start Time: 14:01 Subjective: feels OK.having loose stools this morning.no N/V - Objective Resuscitation Status: Resuscitation Status FULL:Full Resuscitation MAR Reviewed: Yes Vital Signs & Weight: Vital Signs (12 hours) Temp Pulse Resp BP BP Pulse Ox 09/04/17 10:47 105/61 09/04/17 08:00 98.5 F 69 16 98 09/04/17 07:28 98.5 F 69 16 122/65 98 Weight Admit Weight 167 lb 6.4 oz Weight 167 lb 6.4 oz I&O: 09/03/17 09/04/17 09/05/17 06:59 06:59 06:59 Intake Total 950 540 Balance 950 540 Result Diagrams: 09/04/17 04:18 09/04/17 04:18 Additional Labs: Accuchecks 09/04/17 09/04/17 09/03/17 10:51 04:12 19:22 POC Glucose 127 H 207 H 231 H 09/03/17 15:59 POC Glucose 97 Microbiology 08/31/17 05:55 Buttock - Decubitis Bacterial Culture - Final Streptococcus agalactiae Gp. B 08/30/17 21:28 Venous blood - Right Arm Blood Culture - Preliminary NO GROWTH AT 48 HOURS 08/30/17 21:17 Venous blood - Left Arm Blood Culture - Preliminary NO GROWTH AT 48 HOURS Phys Exam - Physical Examination Constitutional: NAD HEENT: PERRLA, moist MMs, sclera anicteric Neck: no nodes, no JVD, supple, full ROM Respiratory: no wheezing, no rales, no rhonchi, clear to auscultation bilateral Cardiovascular: RRR, no significant murmur Gastrointestinal: soft, non-tender, no distention, positive bowel sounds Musculoskeletal: no edema, pulses present wound vac sacral area Neurological: non-focal, normal sensation, moves all 4 limbs Psychiatric: normal affect, A&O x 3 Skin: no rash Dx/Plan (1) Sacral osteomyelitis Code(s): M46.28 - OSTEOMYELITIS OF VERTEBRA, SACRAL AND SACROCOCCYGEAL REGION Status: Acute (2) Sacral decubitus ulcer Status: Acute Qualifiers: Pressure ulcer stage: unstageable Qualified Code(s): L89.150 - Pressure ulcer of sacral region, unstageable (3) CKD (chronic kidney disease) stage 2, GFR 60-89 ml/min Code(s): N18.2 - CHRONIC KIDNEY DISEASE, STAGE 2 (MILD) Status: Chronic (4) DM2 (diabetes mellitus, type 2) Status: Chronic (5) HTN (hypertension) Code(s): I10 - ESSENTIAL (PRIMARY) HYPERTENSION Status: Chronic Qualifiers: Hypertension type: essential hypertension Qualified Code(s): I10 - Essential (primary) hypertension - Plan plan discussed w/ family, PT/OT, DVT proph w/SCDs IV ABx for at least 4 weeka w Po Flagyl.add florastor -: check CDiff but less likhenri as she is on Po Flagyl -: diarrhea likley antibiotic related.add Lomotil prn -: OK to DC as wound vac & Abx set w HH.declines rehab placement -: hemodynamically stable. OP f/u w Wound care & ID physicians. * . Review of Systems - Review of Systems Constitutional: weakness, malaise. negative: fever, chills, sweats, other ENT: negative: Ear Pain, Ear Discharge, Nose Pain, Nose Discharge, Nose Congestion, Mouth Pain, Mouth Swelling, Throat Pain, Throat Swelling, Other Respiratory: negative: Cough, Dry, Shortness of Breath, Hemoptysis, SOB with Excertion, Pleuritic Pain, Sputum, Wheezing Cardiovascular: negative: chest pain, palpitations, orthopnea, paroxysmal nocturnal dyspnea, edema, light headedness, other Gastrointestinal: negative: Nausea, Vomiting, Abdominal Pain, Diarrhea, Constipation, Melena, Hematochezia, Other Genitourinary: negative: Dysuria, Frequency, Incontinence, Hematuria, Retention , Other Skin: negative: Rash, Lesions, Mateus, Bruising, Other Neurological: negative: Weakness, Numbness, Incoordination, Change in Speech, Confusion, Seizures, Other - Medications/Allergies Allergies/Adverse Reactions: Allergies Allergy/AdvReac Type Severity Reaction Status Date / Time No Known Allergies Allergy Verified 08/31/17 01:12 Medications: Current Medications Acetaminophen (Tylenol) 650 mg PO Q4H PRN PRN Reason: Headache/Fever or Pain Last Admin: 09/03/17 05:24 Dose: 650 mg Hydrocodone Bitart/Acetaminophen ([place] 5/325) 1 tab PO Q8H PRN PRN Reason: Moderate Pain (4-6) Last Admin: 09/04/17 09:28 Dose: 1 tab Atorvastatin Calcium (Lipitor) 40 mg PO HS [facility] Last Admin: 09/03/17 20:06 Dose: 40 mg Dextrose/Water (Dextrose 50%) 25 gm SLOW IVP PRN PRN PRN Reason: Hypoglycemia Docusate Sodium (Colace) 100 mg PO BID [facility] Last Admin: 09/04/17 09:30 Dose: Not Given Enoxaparin Sodium (Lovenox) 40 mg SC 0900 [facility] Last Admin: 09/04/17 09:30 Dose: 40 mg Famotidine (Pepcid) 20 mg PO BID [facility] Last Admin: 09/04/17 09:30 Dose: 20 mg Furosemide (Lasix) 20 mg PO DAILY [facility] Last Admin: 09/04/17 09:30 Dose: 20 mg Glucagon (Glucagon) 1 mg IM PRN PRN PRN Reason: Hypoglycemia Guaifenesin/Dextromethorphan (Robitussin Dm) 15 ml PO Q4H PRN PRN Reason: Cough Dextrose/Water (D5w) 1,000 mls @ 0 mls/hr IV .Q0M PRN; As Directed PRN Reason: Hypoglycemia Ceftriaxone Sodium 2 gm/ (Sodium Chloride) 100 mls @ 200 mls/hr IVPB Q24HR@ 1600 [facility] Last Admin: 09/04/17 10:51 Dose: 100 mls Vancomycin HCl 1.5 gm/ Sodium (Chloride) 300 mls @ 200 mls/hr IVPB 2300 [facility] Last Admin: 09/03/17 23:44 Dose: 300 mls Insulin Human Lispro (Humalog) 0 units SC .MODERATE SLIDING SC PRN PRN Reason: Moderate Correctional Scale Last Admin: 09/04/17 05:50 Dose: 4 unit Insulin Human Lispro (Humalog) 0 units SC .BEDTIME SLIDING SC PRN PRN Reason: Bedtime Correctional Scale Last Admin: 09/02/17 21:40 Dose: 2 unit Insulin Human NPH (Humulin N) 10 unit SC BID [facility] Last Admin: 09/04/17 09:31 Dose: 10 unit Lisinopril (Zestril) 20 mg PO [facility] Last Admin: 09/03/17 20:06 Dose: 20 mg Magnesium Chloride (Slow-Mag) 128 mg PO BID [facility] Last Admin: 09/04/17 09:29 Dose: 128 mg Metronidazole (Flagyl) 500 mg PO TID [facility] Last Admin: 09/04/17 09:30 Dose: 500 mg Miscellaneous Medication (Pharmacy To Dose) 1 each IVPB PRN PRN PRN Reason: OSTEO Pioglitazone HCl (Actos) 15 mg PO DAILY [facility] Last Admin: 09/04/17 09:29 Dose: 15 mg Potassium Chloride (Klor-Con 10) 10 meq PO BID-WM [facility] Last Admin: 09/04/17 09:29 Dose: 10 meq
[2017-09-04] MEDS ORDERED: Diphenoxylate HCl/Atropine Tablet PO PRN (14:04)
== END 2017-09-04 16:05 | disposition home health service (06) | DRG 592 ==
LOC: ERS 16:27 → T4-B 21:21
PROVIDERS: ADMIT Internal Medicine; ATTEND Internal Medicine
PROC: 02HV33Z Insertion of Infusion Device into Superior Vena Cava, Percutaneous Approach (ICD-10-PCS; principal; 2017-09-03)
DX: L89.154 Pressure ulcer of sacral region, stage 4 (principal); I96 Gangrene, not elsewhere classified; E46 Unspecified protein-calorie malnutrition; E11.22 Type 2 diabetes mellitus with diabetic chronic kidney disease; E11.42 Type 2 diabetes mellitus with diabetic polyneuropathy; M46.28 Osteomyelitis of vertebra, sacral and sacrococcygeal region; E83.42 Hypomagnesemia; E11.52 Type 2 diabetes mellitus with diabetic peripheral angiopathy with gangrene; E11.621 Type 2 diabetes mellitus with foot ulcer; L97.529 Non-pressure chronic ulcer of other part of left foot with unspecified severity; B95.1 Streptococcus, group B, as the cause of diseases classified elsewhere; Z89.511 Acquired absence of right leg below knee; Z79.4 Long term (current) use of insulin; K21.9 Gastro-esophageal reflux disease without esophagitis; Z85.41 Personal history of malignant neoplasm of cervix uteri; Z85.038 Personal history of other malignant neoplasm of large intestine; Z92.3 Personal history of irradiation; D63.8 Anemia in other chronic diseases classified elsewhere; Z68.29 Body mass index [BMI] 29.0-29.9, adult; I12.9 Hypertensive chronic kidney disease with stage 1 through stage 4 chronic kidney disease, or unspecified chronic kidney disease; N18.2 Chronic kidney disease, stage 2 (mild)
CPT/HCPCS: 36415; 36416; 36569; 72220; 80048; 80053; 80069; 80202; 83605; 83735; 85025; 85652; 86140; 87040; 87070; 87077; 87205; 93970; 96365; 96375; C1751; G8978-GP-CK; G8979-GP-CI; G8987-GO-CK; G8988-GO-CJ; J0696; J1644; J1650; J1815; J1885; J2543; J3370; J3475; J7050

== ENCOUNTER 2017-09-10 09:35 | Outpatient (CLI) | payer MEDICARE ==
[~2017-09-10 09:35] MED LIST: Sodium Chloride 0.9% 15 ML NEB ONE
== END 2017-09-10 09:36 | disposition home or self-care (01) ==
LOC: WCC 09:35
PROVIDERS: ATTEND Family Medicine
DX: L89.159 Pressure ulcer of sacral region, unspecified stage (principal)
CPT/HCPCS: 97606; A4218

== ENCOUNTER 2017-09-13 11:33 | Outpatient (CLI) | payer MEDICARE ==
--- NOTE | 2017-09-13 15:05 | PRG ---
DATE OF SERVICE: 09/13/2017 HISTORY: Ms. Lilliam Mariee is a very pleasant 77-year-old who presents to the Wound Center for evaluation of a sacral pressure ulceration. Since the patient was last seen in the Wound Center, Ms. Mariee was admitted to [facility] on 08/30/2017 for an infectious process associated with her sacral decubitus ulcer. During the patient's hospital stay, Ms. Mariee was seen in consultation by both General Surgery and Infectious Diseases. The patient is now receiving IV antibiotics as per Dr. Monster Morfin of Infectious Diseases. The patient is also receiving negative pressure therapy with dressing changes of the wound VAC 3 times per week with the assistance of Home Health. When the patient was seen in consultation by General Surgery, the patient was told that no debridement was warranted at that time. PHYSICAL EXAMINATION: VITAL SIGNS: Temperature 97.4, pulse 90, respirations 17, blood pressure 190/ 74. Accu-Chek 144. BACK: A sacral ulceration is present which measures approximately 5.2 x 5.5 cm. The wound is granulating. Nonviable tissue present within the wound margins was debrided with an excisional full-thickness debridement. No purulent drainage is associated with the wound. No erythema of the skin surrounding the wound is present. No maceration of the skin of the periwound is noted. ASSESSMENT AND PLAN: 1. Sacral pressure ulceration. Negative pressure therapy will be continued with dressing changes of the wound VAC 3 times per week with the assistance of Home Health. I will see Ms. Mariee again in two weeks. The wound VAC will be placed to settings of 125 mmHg, continuous. As stated above, the patient is receiving IV antibiotics as per Dr. Monster Morfin of Infectious Diseases. 2. Diabetes mellitus. The patient's Accu-Chek in clinic today is 144. The patient has been reminded that for optimal wound healing, her blood glucoses should remain below 150. 3. Hypertension. 4. Gastroesophageal reflux disease. 5. History of cervical carcinoma. 6. History of colon carcinoma. 7. History of anemia. 8. Chronic kidney disease stage 3. 9. Protein-calorie malnutrition. MTDD
[2017-09-13] MEDS ORDERED: Sodium Chloride 0.9% 15 ML NEB ONE (17:06)
== END 2017-09-13 11:34 | disposition home or self-care (01) ==
LOC: WCC 11:33
PROVIDERS: ATTEND Family Medicine
DX: L89.159 Pressure ulcer of sacral region, unspecified stage (principal); K21.9 Gastro-esophageal reflux disease without esophagitis; E11.22 Type 2 diabetes mellitus with diabetic chronic kidney disease; I12.9 Hypertensive chronic kidney disease with stage 1 through stage 4 chronic kidney disease, or unspecified chronic kidney disease; N18.3 Chronic kidney disease, stage 3 (moderate); E46 Unspecified protein-calorie malnutrition; Z85.41 Personal history of malignant neoplasm of cervix uteri; Z85.038 Personal history of other malignant neoplasm of large intestine; Z86.2 Personal history of diseases of the blood and blood-forming organs and certain disorders involving the immune mechanism
CPT/HCPCS: 11042; 36416; A4218

== ENCOUNTER 2017-09-27 10:23 | Outpatient (CLI) | payer MEDICARE ==
[~2017-09-27 10:23] MED LIST changes: +Lidocaine 2% Jelly 5 ML TUBE ONE
--- NOTE | 2017-09-27 12:23 | PRG ---
DATE OF SERVICE: 09/27/2017 HISTORY: Ms. Lilliam Mariee is a very pleasant 77-year-old who presents to the Wound Center for evaluation of a sacral pressure ulceration. The patient was admitted to [facility] on 08/30/2017 for an infectious process associated with her sacral decubitus ulcer. During the patient's hospital stay, Ms. Mariee was seen in consultation by both General Surgery and Infectious Diseases. The patient is now receiving IV antibiotics as per Dr. Monster Morfin of Infectious Diseases. The patient is also receiving negative pressure therapy with dressing changes of the wound VAC 3 times per week with the assistance of Home Health. When the patient was seen in consultation by General Surgery, the patient was told that no debridement was warranted at that time. PHYSICAL EXAMINATION: VITAL SIGNS: Temperature 97.5, pulse 93, respirations 19, blood pressure 152/ 65. Accu-Chek 112. BACK: A sacral ulceration is present which measures approximately 5.5 x 5.2 cm. The wound is granulating. Nonviable tissue present within the wound margins was debrided with an excisional full-thickness debridement. Forceps were utilized to extract a bone fragment present within the wound margins embedded in the granulation tissue. No purulent drainage is associated with the wound. No erythema of the skin surrounding the wound is present. No maceration of the skin of the periwound is noted. ASSESSMENT AND PLAN: 1. Sacral pressure ulceration. Negative pressure therapy will be continued with dressing changes of the wound VAC 3 times per week with the assistance of Home Health. I will see Ms. Mariee again in 3 weeks. The wound VAC will be continued at settings of 125 mmHg, continuous. As stated above, the patient is receiving IV antibiotics as per Dr. Monster Morfin of Infectious Diseases. 2. Diabetes mellitus. The patient's Accu-Chek in clinic today is 112. The patient has been reminded that for optimal wound healing, her blood glucoses should remain below 150. 3. Hypertension. 4. Gastroesophageal reflux disease. 5. History of cervical carcinoma. 6. History of colon carcinoma. 7. History of anemia. 8. Chronic kidney disease stage 3. 9. Protein-calorie malnutrition. MTDD
== END 2017-09-27 10:24 | disposition home or self-care (01) ==
LOC: WCC 10:23
PROVIDERS: ATTEND Family Medicine
DX: L89.159 Pressure ulcer of sacral region, unspecified stage (principal); E11.622 Type 2 diabetes mellitus with other skin ulcer; E11.22 Type 2 diabetes mellitus with diabetic chronic kidney disease; I12.9 Hypertensive chronic kidney disease with stage 1 through stage 4 chronic kidney disease, or unspecified chronic kidney disease; K21.9 Gastro-esophageal reflux disease without esophagitis; D63.1 Anemia in chronic kidney disease; N18.3 Chronic kidney disease, stage 3 (moderate); E46 Unspecified protein-calorie malnutrition; Z85.038 Personal history of other malignant neoplasm of large intestine; Z85.41 Personal history of malignant neoplasm of cervix uteri
CPT/HCPCS: 11042; A4218

== ENCOUNTER 2017-10-18 10:12 | Outpatient (CLI) | payer MEDICARE ==
--- NOTE | 2017-10-18 11:59 | PRG ---
DATE OF SERVICE" 10/18/2017 HISTORY: Ms. Lilliam Mariee is a very pleasant 77-year-old who presents to the Wound Center for evaluation of a sacral pressure ulceration. The patient was admitted to [facility] on 08/30/2017 for an infectious process associated with her sacral decubitus ulcer. During the patient's hospital stay, Ms. Mariee was seen in consultation by both General Surgery and Infectious D mario. The patient has completed a course of IV antibiotics as per Dr. Monster Morfin of Infectious Diseases. The patient is also receiving negative pressure therapy with dressing changes of the woun d VAC 3 times per week with the assistance of Home Health. When the patient was seen in consultation by General Surgery during her hospital stay she was told that no debridement was warranted at that t [facility]. PHYSICAL EXAMINATION: VITAL SIGNS: Temperature 97.9, pulse 68, respirations 18, blood pressure 165/67. Accu-Chek 173. BACK: A sacral ulceration is present which measures approximately 5.0 x 5.2 cm. The wound is granul ating. Nonviable tissue present within the wound margins was debrided with an excisional full-thickn ess debridement with the use of a curet. No purulent drainage is associated with the wound. No eryt cata of the skin surrounding the wound is present. No maceration of the skin of the periwound is not ed. The depth of the wound today is approximately 2 cm. The dimensions of the wound at the time of the patient's last visit were approximately 5.5 x 5.2 cm. Undermining at the 12 o'clock position is also present on today's exam. ASSESSMENT AND PLAN: 1. Sacral pressure ulceration. Negative pressure therapy will be continued with dressing changes of the wound VAC 3 times per week with the assistance of Home Health. I will see Ms. Mariee again in 3 weeks. The wound VAC will be continued at settings of 125 mmHg, continuous. As stated above, the pa travon has completed a course of IV antibiotics as per Dr. Monster Morfin of Infectious Diseases. 2. Diabetes mellitus. The patient's Accu-Chek in clinic today is 173. The patient has been reminde d that for optimal wound healing, her blood glucoses should remain below 150. 3. Hypertension. 4. Gastroesophageal reflux disease. 5. History of cervical carcinoma. 6. History of colon carcinoma. 7. History of anemia. 8. Chronic kidney disease stage 3. 9. Protein calorie malnutrition.
[2017-10-18] MEDS ORDERED: Sodium Chloride 0.9% 15 ML NEB ONE (15:33)
== END 2017-10-18 10:13 | disposition home or self-care (01) ==
LOC: WCC 10:12
PROVIDERS: ATTEND Family Medicine
DX: E11.622 Type 2 diabetes mellitus with other skin ulcer (principal); L89.159 Pressure ulcer of sacral region, unspecified stage; K21.9 Gastro-esophageal reflux disease without esophagitis; I12.9 Hypertensive chronic kidney disease with stage 1 through stage 4 chronic kidney disease, or unspecified chronic kidney disease; E11.22 Type 2 diabetes mellitus with diabetic chronic kidney disease; N18.3 Chronic kidney disease, stage 3 (moderate); E46 Unspecified protein-calorie malnutrition; Z85.038 Personal history of other malignant neoplasm of large intestine; Z85.41 Personal history of malignant neoplasm of cervix uteri; Z86.2 Personal history of diseases of the blood and blood-forming organs and certain disorders involving the immune mechanism
CPT/HCPCS: 11042; 36416; A4218

== ENCOUNTER 2017-11-01 10:04 | Inpatient (IN) | payer MEDICARE, MEDICAID ==
[2017-11-01 11:16] LABS: #Eosinphils 0.2 thou/uL (0.0-0.7); #Lymphocytes 1.3 thou/uL (1.20-3.40); #Monocytes 0.5 thou/uL (0.11-0.59); #Neutrophils 6.3 thou/uL (1.40-6.50); %Basophils 0.3 % (0.0-1.0); %Eosinophils 2.6 % (0.0-10.0); %Lymphocytes 15.2 % (21.0-51.0); %Monocytes 5.7 % (0.0-10.0); %Neutrophils 76.1 % (42.0-75.0); Hemoglobin 10.7 g/dL (12.0-16.0); Mean Corpuscular HGB CONC 33.1 g/dL (32.0-36.0); Mean Corpuscular Hemoglobin 30.3 pg (27.0-31.0); Mean Corpuscular Volume 91.4 fl (81.0-99.0); Mean Platelet Volume 7.6 fL (7.4-10.4); Platelet Count 336 thou/uL (130-400); RBC Distribution Width 17.1 % (11.5-14.5); Red Blood Cell (RBC) Count 3.53 mill/uL (4.20-5.40); White Blood Cell (WBC) Count 8.3 thou/uL (4.8-10.8)
[2017-11-01 11:30] LABS: INR-International Normal Ratio 1.1; PTT 35.9 SEC (22.9-36.1); Prothrombin Time 14.1 SEC (12.0-14.7)
[2017-11-01 11:43] LABS: ALT (SGPT) 84 U/L (8-55); AST (SGOT) 209 U/L (5-34); Albumin 2.8 g/dL (3.4-4.8); Alkaline Phosphatase 2841 U/L (40-150); Anion Gap 14 mmol/L (10-20); BUN (Urea Nitrogen) 19 mg/dL (9.8-20.1); Bilirubin, Total 7.7 mg/dL (0.2-1.2); Calc. Creatinine Clearance 0 mL/min (70-130); Calcium 9.1 mg/dL (7.8-10.44); Carbon Dioxide 24 mmol/L (23-31); Chloride 104 mmol/L (98-107); Estimated GFR-MDRD 57; Globulin 4.5 g/dL (2.4-3.5); Glucose 118 mg/dL (83-110); Lipase Less than 4 U/L (8-78); Potassium 3.6 mmol/L (3.5-5.1); Protein, Total 7.3 g/dL (6.0-8.3); Sodium 138 mmol/L (136-145)
[2017-11-01 12:01] LABS: Bilirubin Large (Negative); Blood, Urine Moderate (Negative); Glucose, Urine (Dipstick) Negative (Negative); Leukocyte Trace (Negative); Nitrite Negative (Negative); Protein, Urine (Dipstick) 100 mg/dL (Neg-Trace); Specific Gravity, Urine 1.025 (1.005-1.030); Urobilinogen 0.2 mg/dL (0.2-1.0)
[2017-11-01 12:02] LABS: Clarity Hazy (Clear)
[2017-11-01 12:05] LABS: Other Microscopic Description Less than 2 mL rec'd
[2017-11-01 12:06] LABS: Bacteria/HPF None Seen HPF (None Seen); Hyaline Casts/LPF NONE SEEN LPF (0-3 Hyaline); RBC/HPF 0-3 HPF (0-3); WBC/HPF 0-3 HPF (0-3); Yeast-All Forms 1+ HPF (None Seen)
--- NOTE | 2017-11-01 13:15 | ULT ---
RIGHT UPPER QUADRANT ULTRASOUND: History: Elevated LFTs. Technique: Multiple longitudinal and transverse images of the right upper quadrant of the abdomen is obtained us ing a multihertz curvilinear transducer. Real-time, color flow, and spectral waveform doppler analysi s was used to evaluate the upper quadrant. FINDINGS: The liver is unremarkable. There is massive dilatation of the common bile duct measuring up to 21 mm. I cannot exclude the possi bility of a distal common bile duct calculus or mass. The gallbladder has been surgically removed. Visualized portions of the pancreas is difficult to assess but is unremarkable. Much of the pancreas, however, is not visualized due to overlying bowel gas. Normal hepatopedal flow is seen in the portal system. The right kidney is somewhat atrophied. Pole-to -pole measurement measures 7.8 cm. No evidence of hydronephrosis is seen. IMPRESSION: 1. Atrophied right kidney. 2. Markedly dilated common bile duct measuring up to 2.1 cm. Distal common bile duct pathology includ ing calculi or masses cannot be excluded. POS: CHERRY
[2017-11-01] MEDS ORDERED: HumaLOG 300 UNITS/3 ML VIAL SC PRN (15:31)
[2017-11-01] MEDS ORDERED: Dextrose 50% Abboject 50 ML SYRINGE SLOW IVP PRN (15:31)
[2017-11-01] MEDS ORDERED: Dextrose 5% in Water 1,000 ML IV PRN (15:31)
[2017-11-01] MEDS: Sodium Chloride 0.9% 1,000 ML IV SCH (16:20)
[2017-11-01 17:33] VITALS: BMI 27.3
[2017-11-01 17:41] LABS: HBCM Index 0.06 S/CO (0-0.79); HBSAg Index 0.22 S/CO (0-0.99); Hep A IgM AB Non-Reactive (NonReactive); Hep A IgM S/CO 0.17 S/CO (0-0.79); Hep B Surf Ag Non-Reactive S/CO (NonReactive); Hep C IgG Ab Non-Reactive (NonReactive); Hep C Index 0.16 S/CO (0-0.79); Hepatitis B Core IGM Abs Non-Reactive (NonReactive)
[2017-11-01] MEDS: Insulin Glargine 5 UNITS in Pre-Filled Syringe 1 EACH SC SCH (20:39)
[2017-11-01] MEDS: oxyCODONE 5 MG TAB PO PRN (20:40)
[2017-11-02] MEDS: Sodium Chloride 0.9% 1,000 ML IV SCH ×3 (02:30→20:28)
[2017-11-02 04:56] LABS: #Eosinphils 0.3 thou/uL (0.0-0.7); #Lymphocytes 1.6 thou/uL (1.20-3.40); #Monocytes 0.8 thou/uL (0.11-0.59); #Neutrophils 5.1 thou/uL (1.40-6.50); %Basophils 0.5 % (0.0-1.0); %Eosinophils 4.5 % (0.0-10.0); %Lymphocytes 20.1 % (21.0-51.0); %Monocytes 9.8 % (0.0-10.0); %Neutrophils 65.1 % (42.0-75.0); Hemoglobin 10.4 g/dL (12.0-16.0); Mean Corpuscular HGB CONC 33.1 g/dL (32.0-36.0); Mean Corpuscular Hemoglobin 29.9 pg (27.0-31.0); Mean Corpuscular Volume 90.4 fl (81.0-99.0); Mean Platelet Volume 7.5 fL (7.4-10.4); Platelet Count 253 thou/uL (130-400); RBC Distribution Width 17.2 % (11.5-14.5); Red Blood Cell (RBC) Count 3.49 mill/uL (4.20-5.40); White Blood Cell (WBC) Count 7.8 thou/uL (4.8-10.8)
[2017-11-02 05:17] LABS: ALT (SGPT) 65 U/L (8-55); AST (SGOT) 156 U/L (5-34); Albumin 2.4 g/dL (3.4-4.8); Alkaline Phosphatase 2505 U/L (40-150); Anion Gap 11 mmol/L (10-20); BUN (Urea Nitrogen) 12 mg/dL (9.8-20.1); Bilirubin, Total 7.7 mg/dL (0.2-1.2); Calc. Creatinine Clearance 67 mL/min (70-130); Calcium 8.4 mg/dL (7.8-10.44); Carbon Dioxide 21 mmol/L (23-31); Chloride 107 mmol/L (98-107); Estimated GFR-MDRD 73; Globulin 3.9 g/dL (2.4-3.5); Glucose 142 mg/dL (83-110); Potassium 3.4 mmol/L (3.5-5.1); Protein, Total 6.3 g/dL (6.0-8.3); Sodium 136 mmol/L (136-145)
[2017-11-02] MEDS: Saccharomyces boulardii 250 MG CAP PO SCH (08:56)
[2017-11-02] MEDS ORDERED: Enoxaparin Sodium 40 MG/0.4 ML SYRINGE SC SCH (09:00)
[2017-11-02] MEDS: oxyCODONE 5 MG TAB PO PRN ×2 (09:57→20:27)
--- NOTE | 2017-11-02 11:06 | HP ---
PRIMARY CARE PHYSICIAN: Rodrigo Beckwith D.O. CHIEF COMPLAINT: Sent from office for abnormal labs. HISTORY OF PRESENT ILLNESS: Patient is a very pleasant 77-year-old female who was recently discharge d from the hospital in August for sacral osteomyelitis. Patient currently does have a wound VAC to he r left hip area. She was seen by Infectious Disease and was put on IV antibiotics, which she has com pleted. 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 This was sec ondary to diabetic foot ulcer. Patient states that her labs collected at home yesterday and was advi sed to come into the hospital for abnormal labs. Patient denies any nausea, vomiting, or any fevers or chills. Patient states that she has been having some soft stools x2 on a daily basis. Per docume ntation, patient had an EGD in 07/2017 for anemia and was found to have a few 5 polyps, which were re moved. The pathology for the polyps indicated hyperplastic polyps. Patient denies any abdominal shilpa n. Patient states that she has been able to tolerate her oral food well without any nausea or vomiti ng or any abdominal pain; however, sometimes she does complain of some abdominal cramping prior to ram ving her soft stools. Denies any itching. Denies any chest pain or shortness of breath. Patient st ates that she has been feeling weak recently and has lost significant amount of weight due to poor ap petite. PAST MEDICAL HISTORY: Significant for, 1. Colon cancer she has had. 2. Cervical cancer, status post radiation. 3. Diabetes, type 2. 4. Hypertension. 5. High cholesterol. PAST SURGICAL HISTORY: She has had a cholecystectomy. She has a hysterectomy. She has had a below- the-knee amputation, appendectomy, hernia repair, and a right hemicolectomy. SOCIAL HISTORY: She denies any alcohol use, drug use, or smoking history. ALLERGIES: She has got no known drug allergies. FAMILY HISTORY: She says her mother, father, sister, brother are all due to diabetes compli cation. Father also of a heart attack. Patient's son also has had an amputation due to diabete s. REVIEW OF SYSTEMS: A 14-point review of systems all negative except for the ones mentioned in the HP I. CURRENT MEDICATIONS: She does not have a list, this is from her last discharge summary. Patient sta sandra that none of her medications have been changed. Medications are as the following: Atorvastatin 40 mg daily, Lasix 20 mg daily, pioglitazone 15 mg daily, Humalog 75/25 of 20 units subcutaneously da gianni, lisinopril 20 mg daily, hydrocodone p.r.n. as needed. PHYSICAL EXAMINATION: VITAL SIGNS: She is afebrile at 98.8, heart rate of 93, respirations are 16, 98% on room air, blood pressure of 170/60. GENERAL: She is awake, alert, oriented x3, does not apparent in any distress. HEENT: She does have icteric sclerae. NECK: No lymphadenopathy around the anterior cervical area noted. CARDIOVASCULAR: S1, S2 present. No murmurs, rubs, or gallops. Regular rate and rhythm. LUNGS: Clear to auscultation. No rhonchi or wheezes noted. ABDOMEN: Obese. Mid abdominal scar is seen. Bowel sounds are present x2. She has no pain upon lig ht and deep palpation around her abdomen including her right upper quadrant. EXTREMITIES: She does have a right ietha-[id number]-[id number] amputation scar appears to be well healed. SKIN: She has a decubitus to her left buttocks area. She also has a wound VAC to her left buttocks area. PSYCHIATRIC: She is pleasant, does not appear to be depressed. LABORATORY DATA: As following: WBCs of 8.3, hemoglobin of 10.7, hematocrit of 32.3, platelets of 33 6. Her PT/INR are normal. INR of 1.1, PT of 14.1. Chemistry: Sodium of 138, potassium of 3.6, BUN of 19, creatinine of 0.95. Her total bilirubin is 7.7. GGT is 2050. Her alkaline phosphatase is 2 841, AST is 209, ALT is 84. Lipase is less than 4. She did have a right upper quadrant ultrasound, which indicated a dilated common bile duct of . ASSESSMENT AND PLAN: Patient is a very pleasant 77-year-old female who was sent to the hospital for abnormal liver function test. 1. Elevated liver function tests, possible secondary to underlying malignancy given patient's histor y of multiple malignancies in the past. We will consult Gastroenterology. We will also keep patient n.p.o. after midnight, tonight. We will start patient on some IV hydration. We will also check a h epatitis panel. Patient states that she has not been on any new medications, would review of some of her old medications to see if that could be the cause of elevated LFTs; however, her alkaline phosph atase is significantly elevated, which indicates most likely a biliary pathology. 2. Painless jaundice. Her total bilirubin is 7.7. Again, we will consult GI. Patient might need f urther investigation in regard to her elevated LFTs and her elevated alkaline phosphatase. I do not think this is secondary to hemolysis, her H&H has been stable. 3. Diabetes. We will continue her sliding scale, home-dose insulin and also we will check Accu-Chek s before meals and at bedtime. 4. She does have a history of sacral osteomyelitis. Patient does currently have a wound VAC to her left hip. We will consult Wound Care for further evaluation. 5. Hypertension. We will continue her blood pressure medications may need to titrate since her bloo d pressure on admission was mildly elevated. 6. High cholesterol. We will continue her statin. 7. Deep venous thrombosis prophylaxis. We will put patient on subcutaneous Lovenox. 8. Malnutrition. We will see if patient is not eating very much, may consider nutrition consult and also may add Ensure t.i.d. with her meals.
[2017-11-02] MEDS ORDERED: Gadobenate Dimeglumine 529 MG/1 ML (20ML VIAL) ONE (11:36)
--- NOTE | 2017-11-02 15:33 | PDOC.PN ---
- Subjective Encounter Start Date: 11/02/17 Encounter Start Time: 11:00 Subjective: pt up in bed no complains - Objective Resuscitation Status: Resuscitation Status FULL:Full Resuscitation Vital Signs & Weight: Vital Signs (12 hours) Temp Pulse Pulse Resp BP BP Pulse Ox 11/02/17 09:10 69 173/71 H 11/02/17 09:05 75 173/71 H 11/02/17 08:00 98.1 F 69 16 100 11/02/17 07:26 98.1 F 69 16 150/68 H 100 11/02/17 04:00 97.8 F 91 16 173/62 H 100 Pulse Ox 11/02/17 09:10 11/02/17 09:05 100 11/02/17 08:00 11/02/17 07:26 11/02/17 04:00 Weight Admit Weight 154 lb 9 oz Weight 154 lb 9 oz I&O: 11/01/17 11/02/17 11/03/17 06:59 06:59 06:59 Intake Total 1440 Balance 1440 Result Diagrams: 11/02/17 04:41 11/02/17 04:41 Additional Labs: Accuchecks 11/02/17 11/02/17 11/02/17 13:40 11:14 04:28 POC Glucose 151 H 160 H 138 H 11/01/17 11/01/17 20:35 16:36 POC Glucose 167 H 102 Phys Exam - Physical Examination HEENT: PERRLA, moist MMs, sclera anicteric, TM's clear, oral pharynx no lesions , 2+ tonsils Neck: no nodes, no JVD, supple, full ROM Respiratory: no wheezing, no rales, no rhonchi, wheezing present, clear to auscultation bilateral Cardiovascular: RRR, no significant murmur, no rub, gallop, irregular mild pain on palpation of epigastric area right below the knee amputation Deviation from normal: wound vac to left hip Dx/Plan - Plan 1) elevated lft's/ jaundice 2) DM type 2 3) htn 4) osteomyelitis of left hip plan: MRI abdomen ordered, gi consulted. cea, afp ca 19-9 ordered. continue current meds for blood sugar. will add Norvasc and go up on her lisinopril. wound care to see pt for wound vac. * . Review of Systems - Review of Systems ENT: negative: Ear Pain, Ear Discharge, Nose Pain, Nose Discharge, Nose Congestion, Mouth Pain, Mouth Swelling, Throat Pain, Throat Swelling, Other Respiratory: negative: Cough, Dry, Shortness of Breath, Hemoptysis, SOB with Excertion, Pleuritic Pain, Sputum, Wheezing Cardiovascular: negative: chest pain, palpitations, orthopnea, paroxysmal nocturnal dyspnea, edema, light headedness, other Gastrointestinal: negative: Nausea, Vomiting, Abdominal Pain, Diarrhea, Constipation, Melena, Hematochezia, Other Genitourinary: negative: Dysuria, Frequency, Incontinence, Hematuria, Retention , Other Musculoskeletal: negative: Neck Pain, Shoulder Pain, Arm Pain, Back Pain, Hand Pain, Leg Pain, Foot Pain, Other - Medications/Allergies Allergies/Adverse Reactions: Allergies Allergy/AdvReac Type Severity Reaction Status Date / Time No Known Allergies Allergy Verified 08/31/17 01:12 Medications: Current Medications Dextrose/Water (Dextrose 50%) 25 gm SLOW IVP PRN PRN PRN Reason: Hypoglycemia Glucagon (Glucagon) 1 mg IM PRN PRN PRN Reason: Hypoglycemia Sodium Chloride (Normal Saline 0.9%) 1,000 mls @ 100 mls/hr IV .Q10H [facility] Last Admin: 11/02/17 12:23 Dose: 1,000 mls Dextrose/Water (D5w) 1,000 mls @ 0 mls/hr IV .Q0M PRN; As Directed PRN Reason: Hypoglycemia Insulin Glargine 5 units/ (Miscellaneous Medication) 0.05 mls @ 0 mls/hr SC [facility] Last Admin: 11/01/17 20:39 Dose: Not Given Insulin Human Lispro (Humalog) 0 units SC .MILD SLIDING SCALE PRN PRN Reason: Mild Correctional Scale Lisinopril (Zestril) 20 mg PO [facility] Meclizine HCl (Antivert) 25 mg PO TIDPRN PRN PRN Reason: Dizziness Oxycodone HCl (Oxycodone Ir) 10 mg PO Q4H PRN PRN Reason: Pain Last Admin: 11/02/17 09:57 Dose: 10 mg Saccharomyces Boulardii (Florastor) 250 mg PO DAILY [facility] Last Admin: 11/02/17 08:56 Dose: 250 mg
[2017-11-02] MEDS ORDERED: Amlodipine 10 MG TAB PO SCH ×2 (16:00→16:15)
--- NOTE | 2017-11-02 17:17 | MRI ---
MRI OF THE ABDOMEN WITHOUT AND WITH CONTRAST MRCP 11/02/17 COMPARISON: CT abdomen/pelvis 02/06/16 and abdominal ultrasound 11/01/17. HISTORY: Dilated common bile duct seen on prior ultrasound. TECHNIQUE: Multiplanar and multisequence MRI images were obtained of the abdomen without and with IV contrast. M BARREL HEADER images were also performed. FINDINGS: The patient is status post cholecystectomy. The common bile duct is enlarged measuring 2.1 cm in size . There is moderate central intrahepatic biliary dilatation. The common bile duct abruptly tapers to a normal caliber at the ampulla of Vater. No filling defects are seen within the biliary tree. The pancreatic duct is normal in caliber. No viktor focal pancreatic mass is seen. In particular, no m ass is seen in the pancreatic head. No focal liver lesions are seen. The adrenal glands, kidneys, and spleen are unremarkable. No abdomin al adenopathy is seen. No marrow signal abnormality is present. IMPRESSION: Nonspecific enlargement of the common bile ducts. This abruptly tapers to a normal caliber at the amp bethany of Vater. No filling defects are seen. This likely is too large to be a reservoir effect from pr ior cholecystectomy. POS: [facility]
--- NOTE | 2017-11-02 19:10 | CON ---
DATE OF CONSULTATION: 11/02/2017 REASON FOR CONSULTATION: Abnormal liver function tests. CONSULTING PHYSICIAN: Zainab Gracia M.D. HISTORY OF PRESENT ILLNESS: The patient is a 77-year-old female with past medical history of colon c ancer, status post resection, cervical cancer status post radiation, diabetes, hypertension, hyperlip idemia and sacral osteomyelitis due to sacral decubitus ulceration, presenting with abnormal LFTs. S he had been followed in the GI clinic more recently for GI bleed experienced in 06/2017 for which she had an upper endoscopy that showed ulcerated polyps within the stomach. Repeat upper endoscopy in 07/2017 again showed ulceration of these polyps but no evidence of active/recent bleeding and they wer e removed with hot snare polypectomy. She had resolution of her GI bleeding symptoms and had been in a fairly decent state of health until approximately a month and a half ago when she began to experie nce increased mid epigastric abdominal pain. The midepigastric abdominal pain was characterized as s harp/pressure type in character, constant with waxing and waning in severity, nonradiating and would reach a maximum severity of 7/10. The pain was worse with eating any food and with no clear alleviat ing factors. She was recently evaluated in the GI Clinic for complaints of diarrhea and had been giv en Metamucil for this particular condition, but no improvement in her diarrhea since then. Associate d symptoms also include increased nausea and weight loss of approximately 20 pounds over the last 6 m onths. More recently, she was seen by her PCP with routine lab order to that particular point in [facility] with her chemistry noting a significant elevation in AST, ALT, alkaline phosphatase, and total bili song which then prompted a phone call to talk to the patient and have her admitted to the hospital f or further evaluation. Currently, she states that she is doing well with no acute events or problem since admission. She does continue to have some mild increased nausea, but otherwise is in midepigas tric abdominal pain with eating meals, but is otherwise doing well. She currently denies any fevers, chills, shortness of breath, melena, hematochezia, hematemesis, odynophagia or dysphagia. REVIEW OF SYSTEMS: A 10-category review of systems was obtained with all responses negative except f or the pertinent positives as listed in the HPI. PAST MEDICAL HISTORY: As per HPI. PAST SURGICAL HISTORY: Cholecystectomy, hysterectomy, appendectomy, right hemicolectomy secondary to colon cancer, hernia repair and [id number] amputation. FAMILY HISTORY: Denies any GI malignancies. SOCIAL HISTORY: Denies any alcohol, tobacco or illicit drug use. OUTPATIENT MEDICATIONS: Reviewed. ALLERGIES: No known drug allergies. PHYSICAL EXAMINATION: VITAL SIGNS: Temperature 98.1, pulse 69, blood pressure 173/71, respiratory rate 16, satting 100% on room air. GENERAL: The patient is sitting at bedside in no acute distress. Alert and oriented x4. Pleasantly conversant. HEENT AND NECK: Supple. No JVD noted. Scleral icterus present. CARDIOVASCULAR: Regular rate and rhythm with no discernible murmurs, gallops or rubs. RESPIRATORY: Clear to auscultation bilaterally with no discernible wheezes or rales. ABDOMEN: Normoactive bowel sounds, soft, nondistended. Tenderness to palpation in the midepigastric and periumbilical regions. EXTREMITIES: No cyanosis, clubbing or edema. LABORATORY DATA: CBC with a white blood cell count of 7.8, hemoglobin 10.4, hematocrit 31.6, platele ts 253. Chemistry with a sodium 136, potassium 3.4, chloride 107, CO2 of 21, BUN 12, creatinine 0.77 , glucose 142. INR 1.1, AST 156, ALT 65, alkaline phosphatase 2505, total bilirubin 7.7, albumin 2.4 , lipase less than 4. CEA 2.53. Acute hepatitis panel negative. IMAGING DATA: Abdominal ultrasound obtained on 11/01/2017 showed massive dilation of the common bile duct measuring up to 21 mm, cholecystectomy changes were seen and atrophy of the right kidney. ASSESSMENT AND PLAN: The patient is a 77-year-old female with past medical history of colon cancer, status post resection, cervical cancer status post radiation, diabetes, hypertension, hyperlipidemia, and sacral osteomyelitis, presenting with abnormal liver function tests. Abnormal liver function tests. The patient is presenting with a history of significantly elevated LF Ts in a primarily cholestatic type picture with predominance of AST and total bilirubin at this time with the significant elevation in her alkaline phosphatase. It is confusing whether or not this is p art of her coexisting osteomyelitis versus concurrent liver dysfunction; however, with elevation in A ST, ALT and total bilirubin, it does raise the likelihood of a liver origin at this time. Given the right upper quadrant ultrasound also showing significant dilation of the common bile duct at 21 mm, i t is concerning for possible obstructive process. Given the relative insidious nature of her increas ed LFTs and with the midepigastric abdominal pain that she has been experiencing for the last month a nd a half, it is a little concerning for a possible pancreatic neoplasm causing pressure to the commo n bile duct creating all the symptoms and both laboratory and imaging findings. Differential could i nclude choledocholithiasis, microlithiasis/sludge within the biliary tree (less likely), ampullary st enosis, pancreatic neoplasm, and/or possible cholangiocarcinoma (less likely). RECOMMENDATIONS: 1. We will follow up on MRCP for further characterization of both liver and biliary tree for evaluat ion of possible obstruction/gallstone pancreatic neoplasm. 2. Agree with gentle IV hydration at this time, but given the patient's ability to tolerate oral int sierra, would decrease the amount of IV fluids to approximately 100 mL per hour in addition to supplemen tation with a diet. 3. Further recommendations based on the MRCP, which may include either ERCP or EUS for further deter mination and/or therapeutic purposes. 4. Would continue to trend LFTs daily as well as INR for assessment of liver function. We will continue to follow. Please call with any questions.
[2017-11-02] MEDS: Insulin Glargine 5 UNITS in Pre-Filled Syringe 1 EACH SC SCH (20:26)
[2017-11-02] MEDS: Lisinopril 20 MG TAB PO SCH (20:27)
[2017-11-02] MEDS: Meclizine HCl 25 MG TAB PO PRN (20:27)
[2017-11-02] MEDS ORDERED: Lisinopril 20 MG TAB PO SCH (21:00)
[2017-11-03] MEDS: Lisinopril 20 MG TAB PO SCH ×2 (07:59→20:08)
[2017-11-03] MEDS: Amlodipine 10 MG TAB PO SCH (07:59)
[2017-11-03] MEDS: Saccharomyces boulardii 250 MG CAP PO SCH (07:59)
[2017-11-03] MEDS: Sodium Chloride 0.9% 1,000 ML IV SCH (08:02)
[2017-11-03 08:22] LABS: ALT (SGPT) 58 U/L (8-55); AST (SGOT) 152 U/L (5-34); Albumin 2.1 g/dL (3.4-4.8); Alkaline Phosphatase 2157 U/L (40-150); Anion Gap 5 mmol/L (10-20); BUN (Urea Nitrogen) 9 mg/dL (9.8-20.1); Bilirubin, Total 7.7 mg/dL (0.2-1.2); Calc. Creatinine Clearance 81 mL/min (70-130); Carbon Dioxide 25 mmol/L (23-31); Chloride 109 mmol/L (98-107); Estimated GFR-MDRD Greater than 90; Globulin 3.6 g/dL (2.4-3.5); Glucose 118 mg/dL (83-110); Potassium 3.3 mmol/L (3.5-5.1); Protein, Total 5.7 g/dL (6.0-8.3); Sodium 136 mmol/L (136-145)
[2017-11-03] MEDS: Furosemide 20 MG TAB PO SCH (08:41)
[2017-11-03] MEDS: Meclizine HCl 25 MG TAB PO PRN (11:28)
--- NOTE | 2017-11-03 12:28 | PRG ---
DATE OF SERVICE: 11/03/2017 SUBJECTIVE: I am meeting Ms. Mariee for the first time today. She complains of some continued midepi gastric pain which is worse postprandially as well as occasional diarrhea. There has been some nause a, but no vomiting. No real change in symptoms since yesterday. Her LFTs remained stably elevated w ith total bilirubin 7.7. She had her MRCP done yesterday which shows significant dilation of the com mon bile duct over 2 cm tapering rapidly at the ampulla of Vater. There were no filling defects with in the bile duct seen on MRCP. OBJECTIVE: VITAL SIGNS: Temperature 98.2, pulse 71, blood pressure 153/71, 99% oxygen saturation on room air. GENERAL: Jaundiced, no acute distress. HEART: Regular rate and rhythm. LUNGS: Clear to auscultation bilaterally. ABDOMEN: Soft, bowel sounds present. Mild tenderness to palpation in the epigastrium. EXTREMITIES: No peripheral edema. LABORATORY STUDIES: WBC 7.8, hemoglobin 10.4, platelets 253. INR 1.1. Sodium 136, potassium 3.3, B UN 9, creatinine 0.63, glucose 200, total bilirubin 7.7, alkaline phosphatase 2157, AST 152, ALT 58. CEA is normal at 2.5. AFP is normal at less than 2.0. Viral hepatitis serology is negative. ASSESSMENT AND PLAN: 1. Elevated liver function tests. 2. Biliary dilation. 3. Upper abdominal pain. I discussed the MRCP results with the patient. There is no mass or lesion visualized, but the common bile duct is quite dilated to 2.1 cm with central intrahepatic biliary dilation as well. There were no filling defects within the common bile duct, but it tapers abruptly to normal caliber at the ampu lla of Vater. Considerations would include ampullary stenosis or other ampullary lesion versus possi ble retained stone or sludge too small to be picked up by MRCP. We do not have endoscopic ultrasound capability here. One option would be to try to arrange for EUS at a tertiary center on an outpatien t basis. Given the patient's ongoing jaundice and symptoms, the other option would be to proceed wit h ERCP this admission for better evaluation of the ampulla, and a cholangiogram to try to determine i f there are any filling defects. If it appears that this is due to ampullary stenosis, then I could potentially perform a biliary sphincterotomy or possibly place a stent across the ampulla. We discus sed the potential risks and benefits of ERCP including the risk of post-ERCP pancreatitis, the patien t desires to proceed. We will plan for ERCP tomorrow.
[2017-11-03] MEDS ORDERED: Potassium Chloride 20 MEQ TAB PO SCH (15:45)
--- NOTE | 2017-11-03 15:45 | PDOC.PN ---
- Subjective Encounter Start Date: 11/03/17 Encounter Start Time: 12:00 Subjective: pt up in bed no complains - Objective Resuscitation Status: Resuscitation Status FULL:Full Resuscitation Vital Signs & Weight: Vital Signs (12 hours) Temp Pulse Resp BP BP Pulse Ox 11/03/17 08:00 98.2 F 71 18 99 11/03/17 07:59 71 153/71 H 11/03/17 07:53 97.5 F L 71 16 145/71 H 97 Weight Admit Weight 154 lb 9 oz Weight 154 lb 9 oz I&O: 11/02/17 11/03/17 11/04/17 06:59 06:59 06:59 Intake Total 1440 1680 240 Balance 1440 1680 240 Result Diagrams: 11/02/17 04:41 11/03/17 07:58 Additional Labs: Accuchecks 11/03/17 11/03/17 11/02/17 11:25 05:03 19:47 POC Glucose 200 H 130 H 189 H 11/02/17 16:50 POC Glucose 177 H Phys Exam - Physical Examination HEENT: PERRLA, moist MMs, sclera anicteric, TM's clear, oral pharynx no lesions , 2+ tonsils Neck: no nodes, no JVD, supple, full ROM Respiratory: no wheezing, no rales, no rhonchi, wheezing present, clear to auscultation bilateral Cardiovascular: RRR, no significant murmur, no rub, gallop, irregular Gastrointestinal: soft, non-tender, no distention, positive bowel sounds right bka, left hip wound vac Dx/Plan - Plan 1) elevated lft's/ jaundice 2) DM type 2 3) htn 4) hyokalemia 5) osteomyelitis of sacral area plan: MRI abdomen ordered, gi consulted. cea, afp ca 19-9 ordered. continue current meds for blood sugar. will add Norvasc and go up on her lisinopril. wound care to see pt for wound vac. 11/03 nonspecific enlargement of cbd and no filling defect noted on MRI. pt will undergo ERCP in am, spoke with gi. will replace K. * . Review of Systems - Review of Systems Eyes: negative: Pain, Vision Change, Conjunctivae Inflammation, Eyelid Inflammation, Redness, Other ENT: negative: Ear Pain, Ear Discharge, Nose Pain, Nose Discharge, Nose Congestion, Mouth Pain, Mouth Swelling, Throat Pain, Throat Swelling, Other Respiratory: negative: Cough, Dry, Shortness of Breath, Hemoptysis, SOB with Excertion, Pleuritic Pain, Sputum, Wheezing Cardiovascular: negative: chest pain, palpitations, orthopnea, paroxysmal nocturnal dyspnea, edema, light headedness, other Gastrointestinal: negative: Nausea, Vomiting, Abdominal Pain, Diarrhea, Constipation, Melena, Hematochezia, Other Genitourinary: negative: Dysuria, Frequency, Incontinence, Hematuria, Retention , Other Musculoskeletal: negative: Neck Pain, Shoulder Pain, Arm Pain, Back Pain, Hand Pain, Leg Pain, Foot Pain, Other - Medications/Allergies Allergies/Adverse Reactions: Allergies Allergy/AdvReac Type Severity Reaction Status Date / Time No Known Allergies Allergy Verified 08/31/17 01:12 Medications: Current Medications Amlodipine Besylate (Norvasc) 10 mg PO DAILY [facility] Last Admin: 11/03/17 07:59 Dose: 10 mg Dextrose/Water (Dextrose 50%) 25 gm SLOW IVP PRN PRN PRN Reason: Hypoglycemia Furosemide (Lasix) 20 mg PO DAILY [facility] Last Admin: 11/03/17 08:41 Dose: 20 mg Glucagon (Glucagon) 1 mg IM PRN PRN PRN Reason: Hypoglycemia Dextrose/Water (D5w) 1,000 mls @ 0 mls/hr IV .Q0M PRN; As Directed PRN Reason: Hypoglycemia Insulin Glargine 5 units/ (Miscellaneous Medication) 0.05 mls @ 0 mls/hr [facility] Last Admin: 11/02/17 20:26 Dose: Not Given Insulin Human Lispro (Humalog) 0 units SC .MILD SLIDING SCALE PRN PRN Reason: Mild Correctional Scale Last Admin: 11/02/17 17:46 Dose: 2 unit Lisinopril (Zestril) 20 mg PO BID [facility] Last Admin: 11/03/17 07:59 Dose: 20 mg Meclizine HCl (Antivert) 25 mg PO TIDPRN PRN PRN Reason: Dizziness Last Admin: 11/03/17 11:28 Dose: 25 mg Oxycodone HCl (Oxycodone Ir) 10 mg PO Q4H PRN PRN Reason: Pain Last Admin: 11/02/17 20:27 Dose: 10 mg Potassium Chloride (K-Dur) 40 meq PO ONE [facility] Saccharomyces Boulardii (Florastor) 250 mg PO DAILY [facility] Last Admin: 11/03/17 07:59 Dose: 250 mg Sodium Chloride (Flush - Normal Saline) 10 ml IVF Q12HR [facility] Last Admin: 11/03/17 07:59 Dose: Not Given Sodium Chloride (Flush - Normal Saline) 10 ml IVF PRN PRN PRN Reason: Saline Flush
[2017-11-03] MEDS: Insulin Glargine 5 UNITS in Pre-Filled Syringe 1 EACH SC SCH (20:06)
[2017-11-04 05:48] LABS: ALT (SGPT) 66 U/L (8-55); AST (SGOT) 198 U/L (5-34); Albumin 2.1 g/dL (3.4-4.8); Alkaline Phosphatase 2280 U/L (40-150); Anion Gap 8 mmol/L (10-20); BUN (Urea Nitrogen) 8 mg/dL (9.8-20.1); Bilirubin, Total 8.5 mg/dL (0.2-1.2); Calc. Creatinine Clearance 68 mL/min (70-130); Calcium 7.9 mg/dL (7.8-10.44); Carbon Dioxide 23 mmol/L (23-31); Chloride 108 mmol/L (98-107); Estimated GFR-MDRD 75; Globulin 3.5 g/dL (2.4-3.5); Glucose 132 mg/dL (83-110); Potassium 3.3 mmol/L (3.5-5.1); Protein, Total 5.6 g/dL (6.0-8.3); Sodium 136 mmol/L (136-145)
[2017-11-04] MEDS ORDERED: Fentanyl 100 MCG/2 ML VIAL ONE (07:13)
[2017-11-04] MEDS ORDERED: Iothalamate Meglumine 60% 50 ML VIAL FS ONE (07:30)
[2017-11-04] MEDS ORDERED: Indomethacin 50 MG SUPP ONE ×4 (08:11→09:01)
[2017-11-04] MEDS ORDERED: DOPamine 400 MG/D5W 250 ML 0 ML ONE (08:11)
[2017-11-04] MEDS ORDERED: Promethazine HCl 25 MG/ML VIAL SLOW IVP PRN (08:44)
[2017-11-04] MEDS ORDERED: Promethazine HCl 25 MG/ML VIAL IM PRN (08:44)
[2017-11-04] MEDS ORDERED: Ondansetron HCl/PF 4 MG/2 ML Vial IVP PRN (08:44)
[2017-11-04] MEDS: Furosemide 20 MG TAB PO SCH (10:40)
[2017-11-04] MEDS: Lisinopril 20 MG TAB PO SCH (10:40)
[2017-11-04] MEDS: Amlodipine 10 MG TAB PO SCH (10:40)
[2017-11-04] MEDS: Saccharomyces boulardii 250 MG CAP PO SCH (10:40)
--- NOTE | 2017-11-04 12:24 | OP ---
DATE OF PROCEDURE: 11/04/2017 SURGEON: Abdiel Lozano M.D. GIVING OFFICER SURGEON: None. PROCEDURE: Endoscopic retrograde cholangiopancreatography, incomplete due to failure to cannulate the common bile duct. INDICATION: 1. Obstructive jaundice. 2. Biliary dilation. 3. Upper abdominal pain. MEDICATIONS: 1. See anesthesia record. 2. Indomethacin 100 mg per rectum. FINDINGS: After discussion of the risks, benefits and alternatives of the procedure, informed consent was obtained and witnessed. Pre-endoscopic cardiopulmonary examination was satisfactory. Timeout was performed before sedation was achieved. Sedation was achieved with anesthesia assistance in the endoscopy unit. A Pentax adult side-viewing duodenoscope was prepared. The patient was in a prone position on the fluoroscopy table. The duodenoscope was advanced beyond the mouth and esophagus and stomach and into the second portion of the duodenum. The esophagus and stomach appeared normal. The ampulla was visualized in the second portion of the duodenum. The ampulla was large in size and somewhat distorted. The ampulla was also quite friable. We attempted to cannulate the common bile duct using a triple lumen dome tip sphincterotome and 0.035 guidewire. However, because of the distortion and friability of the ampulla, I was unsuccessful in cannulation. I considered taking ampullary biopsies, but decided against this as it is clear that the patient will need to be seen at a tertiary center for endoscopic ultrasound of the ampullary area and probably repeat attempt at ERCP with stent placement. Therefore, biopsies were not obtained. The endoscope was completely withdrawn sectioning out excess air and fluid and the patient allowed to recover. The patient tolerated the procedure well. There were no immediate post-procedure complications. 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 Unable to cannulate the common bile duct. Biopsies were not obtained on this exam due to risk of possible complications, and the obvious need for endoscopic ultrasound examination. RECOMMENDATIONS: 1. Full liquid diet. 2. We will attempt to arrange transfer to a tertiary center for endoscopic ultrasound of what appears to be an ampullary lesion, and also likely repeat attempted ERCP. [facility]
[2017-11-04] MEDS ORDERED: Potassium Chloride 20 MEQ TAB PO SCH (14:15)
[2017-11-04] MEDS ORDERED: PROPOFOL 200 MG/20 ML VIAL ONE (15:31)
[2017-11-04] MEDS ORDERED: Glycopyrrolate 0.2 MG/ML 5 ML SYRINGE ONE (15:31)
[2017-11-04] MEDS ORDERED: Lidocaine 1% PF 5 ML VIAL ONE (15:31)
[2017-11-04 15:32] VITALS: BP 136/71; TEMP 98.5
--- NOTE | 2017-11-04 21:23 | DIS ---
DATE OF ADMISSION: 11/01/2017 DATE OF DISCHARGE: 11/04/2017 PRIMARY CARE PROVIDER: Rodrigo Beckwith DO. DISCHARGE DIAGNOSES: 1. Obstructive jaundice. 2. Biliary dilatation. CONDITION OF PATIENT ON THE DAY OF DISCHARGE: Stable. I assessed Ms. Mariee on the day of discharge. She denies any chest pain or shortness of breath. Vital signs are stable. S1 and S2 are heard, re gular. Lungs are clear to auscultation bilaterally. CONSULTATIONS DURING THIS HOSPITALIZATION: Gastroenterology, Dr. Chu. Dr. Lozano attempted ERCP dur ing this hospitalization. HOSPITAL COURSE: Ms. Mariee is a pleasant 77-year-old lady, who was admitted to [facility] on 11/01/2017 for obstructive jaundice. She was seen by Gastroenterology Service. She had MRI of the abdomen, which showed nonspecific enlargement of the common bile ducts. This abruptly tapered to a normal caliber at the ampulla of Vater. No filling defects were seen, and it was felt that this was too large reservoir effect from prior cholecystectomy. On 11/04/2017, ERCP was attempted and was incomplete due to failure to cannulate the common bile duct . She was continued on full fluid diet. She is being transferred to tertiary center for endoscopic ultrasound of what appears to be an ampullary lesion and also likely repeat attempted ERCP. On the day of discharge, sodium 136; potassium 3.3, which is being replaced; creatinine 0.75; total b ilirubin 8.5; AST 198; ALT 66; and alkaline phosphatase 2280. DISCHARGE MEDICATIONS: As per MARs, which are being sent to the tertiary facility. DISCHARGE DESTINATION: Deep Go. TOTAL AMOUNT OF TIME SPENT COORDINATING THIS DISCHARGE: 31 minutes.
--- NOTE | 2017-11-06 10:06 | PQF ---
GEMMA ZARAGOZA DAVID [id number] [id number] CLINICAL DOCUMENTATION CLARIFICATION FORM: POST DISCHARGE Addendum to original discharge summary date: 11/04/2017 DATE: 11/06/2017 ATTN: Dr. Sanon Please exercise your independent, professional judgment in responding to the clarification form. Clinical indicators are provided on the bottom of this form for your review Please check appropriate box(s): ____X___ I (concur) with the Wound Care findings as stated below. [ ] Pressure Ulcer: (Stage I: Erythema; Stage II: Partial thickness; Stage III : Full thickness; Stage IV: Necrosis to muscle/bone) [ ] Location: POA: [ ] Yes [ ] No[ ] Unable to determine Stage (I to IV): (Left Right Bilateral N/A ) [ ] Location: POA: [ ] Yes [ ] No[ ] Unable to determine Stage (I to IV): (Left Right Bilateral N/A ) [ ] Location: POA: [ ] Yes [ ] No[ ] Unable to determine Stage (I to IV): (Left Right Bilateral N/A ) [ ] No pressure ulcer diagnosis [ ] Deep tissue injury [ ] Other diagnosis (please specify) [ ] Unable to determine In addition, please specify: Present on Admission (POA): [ X ] Yes [ ] No [ ] Unable to determine CLINICAL INDICATORS - SIGNS / SYMPTOMS / LABS Per wound care: Pressure Ulcer. Stage IV. Sacrum. Full Thickness. Per H&P: She has a decubitus to her left buttocks area. She also has a wound VAC to her left buttocks area. RISK FACTORS: Per H&P: Malnutrition. Status post sacral osteomyelitis. TREATMENTS: (per wound consult) Wound care consult Specialty mattress--Low Air Loss Mattress. Wound VAC. (This form is maintained as a part of the permanent medical record) 2014 [employer]. All Rights Reserved Naomi [email or web address] [phone] MTDD
== END 2017-11-04 16:03 | disposition short-term general hospital (02) | DRG 444 ==
LOC: ERS 10:04 → T4-A 14:15
PROVIDERS: ADMIT Internal Medicine; ATTEND Internal Medicine
PROC: 0FJB8ZZ Inspection of Hepatobiliary Duct, Via Natural or Artificial Opening Endoscopic (ICD-10-PCS; principal; 2017-11-04)
DX: K83.1 Obstruction of bile duct (principal); L89.154 Pressure ulcer of sacral region, stage 4; I10 Essential (primary) hypertension; E11.9 Type 2 diabetes mellitus without complications; E78.00 Pure hypercholesterolemia, unspecified; K83.8 Other specified diseases of biliary tract; Z85.038 Personal history of other malignant neoplasm of large intestine; Z85.41 Personal history of malignant neoplasm of cervix uteri; Z79.4 Long term (current) use of insulin; Z79.899 Other long term (current) drug therapy; Z90.49 Acquired absence of other specified parts of digestive tract; Z89.431 Acquired absence of right foot
CPT/HCPCS: 36415; 36416; 74183; 76000; 76705; 80053; 80074; 81003; 81015; 82105; 82248; 82378; 82977; 83690; 85025; 85610; 85730; 86301; A4216; A9579; G8978-GP-CJ; G8979-GP-CI; G8987-GO-CK; G8988-GO-CI; J1265; J1610; J2001; J2704; J3010; Q9961

== ENCOUNTER 2017-11-20 14:04 | Outpatient (CLI) | payer MEDICARE, MEDICAID | END 2017-11-20 14:05 | disposition home or self-care (01) | LOC: BICRAD 14:04 | PROVIDERS: ATTEND Nurse Practitioner Family | DX: S91.109A Unspecified open wound of unspecified toe(s) without damage to nail, initial encounter (principal); M79.89 Other specified soft tissue disorders ==

== ENCOUNTER 2017-11-21 10:50 | Outpatient (CLI) | payer MEDICARE ==
--- NOTE | 2017-11-21 14:24 | PRG ---
DATE OF SERVICE: 11/21/2017 HISTORY: Ms. Lilliam Mariee is a very pleasant 77-year-old who presents to the Wound Center for evaluation of a sacral pressure ulceration. The patient was admitted to [facility] on 08/30/2017 for an infectious process associated with her sacral decubitus ulcer. During the patient's hospital stay, Ms. Mariee was seen in consultation by both General Surgery and Infectious D mario. The patient has completed a course of IV antibiotics as per Dr. Monster Morfin of Infectious Diseases. The patient is presently receiving negative pressure therapy with dressing changes of the wound VAC 3 times per week with the assistance of Home Health. When the patient was seen in consult ation by General Surgery during her hospital stay, she was told that no debridement was warranted at that time. The patient also presents to the Wound Center for evaluation of 2 wounds of the left second toe. The patient states that she suffered trauma to the left second toe during her visit to [place], [place] for a medical appointment. Plain films of the left second toe obtained yesterday revealed soft tissue s welling without soft tissue gas or aggressive osseous destruction. The patient states that she is ta kalyn p.o. antibiotics 3 times per day as per CASIMIRO Ayala. PHYSICAL EXAMINATION: VITAL SIGNS: Temperature 98.4, pulse 73, respirations 17, blood pressure 183/74. Accu-Chek 150. BACK: A sacral ulceration is present which measures approximately 5.2 x 4.2 cm. The wound is granul ating. Nonviable tissue present within the wound margins was debrided with an excisional full-thickn ess debridement. No purulent drainage is associated with the wound. No erythema of the skin surroun ding the wound is present. No maceration of the skin of the periwound is noted. EXTREMITIES: Two ulcerations of the left second toe are present. These ulcerations are located over the dorsum of the left second toe and communicate subcutaneously. A posterior tibial pulse is palpa ble on the left. ASSESSMENT AND PLAN: 1. Sacral pressure ulceration. Negative pressure therapy will be discontinued today. Dressing cifuentes ges of Medihoney will be initiated. These dressing changes are to be performed every other day after cleansing and irrigation with the assistance of Home Health. Gauze and Mepilex sacral will be utili zed as secondary dressings at the time of dressing changes. For the left toe wounds, dressing change s of Medihoney and gauze are also to be performed every other day after cleansing and irrigation with the assistance of Home Health. I have discussed the treatment plan with CASIMIRO Ayala. I will see Ms. Mariee again in 4 weeks. If the left toe worsens in its appearance, the patient will be seen in the Wound Center at this time. The patient has been told that she may require amputation of the left second toe. The patient also has been told that consideration may be given to preservation of t he left second toe if osteomyelitis is demonstrated on MRI and the patient chooses to pursue treatmen t with IV antibiotics. The patient apparently is to undergo ERCP in [place], [place] in 2 weeks. In th e meantime, dressing changes with the assistance of Home Health every other day will be continued. 2. Diabetes mellitus. The patient's Accu-Chek in clinic today is 150. The patient has been reminde d that for optimal wound healing, her blood glucoses should remain below 150. 3. Hypertension. 4. Gastroesophageal reflux disease. 5. History of cervical carcinoma. 6. History of colon carcinoma. 7. History of anemia. 8. Chronic kidney disease stage 3. 9. Protein calorie malnutrition.
== END 2017-11-21 10:51 | disposition home or self-care (01) ==
LOC: WCC 10:50
PROVIDERS: ATTEND Family Medicine
DX: E11.622 Type 2 diabetes mellitus with other skin ulcer (principal); L89.159 Pressure ulcer of sacral region, unspecified stage; E11.621 Type 2 diabetes mellitus with foot ulcer; L97.529 Non-pressure chronic ulcer of other part of left foot with unspecified severity; E11.22 Type 2 diabetes mellitus with diabetic chronic kidney disease; I12.9 Hypertensive chronic kidney disease with stage 1 through stage 4 chronic kidney disease, or unspecified chronic kidney disease; N18.3 Chronic kidney disease, stage 3 (moderate); D63.1 Anemia in chronic kidney disease; K21.9 Gastro-esophageal reflux disease without esophagitis; E46 Unspecified protein-calorie malnutrition; Z85.41 Personal history of malignant neoplasm of cervix uteri; Z85.038 Personal history of other malignant neoplasm of large intestine

== ENCOUNTER 2017-12-20 15:55 | Outpatient (CLI) | payer MEDICARE, MEDICAID ==
--- NOTE | 2017-12-20 16:41 | RAD ---
THREE VIEW LEFT FOOT SERIES: 12/20/17 CLINICAL HISTORY: Local infection of skin and subcutaneous tissues. FINDINGS: There is soft tissue prominence of the left foot and ankle region. There is diffuse osseous demineral ization. Vascular calcification present. There is an aggressive, destructive process involving the se cond digit distal phalanx with overlying soft tissue prominence. No evidence of Lisfranc dislocation. Scattered degenerative change present. There is a linear radiopaque density projecting at the medial aspect of the base of the great toe, plantar aspect. IMPRESSION: 1. Destructive process involving the second toe distal phalanx, with prominent overlying soft ti ssues, may relate to osteomyelitis in the correct clinical context. 2. Radiopaque density at the proximal, plantar soft tissues of the left great toe. Correlate for radiopaque foreign body. POS: [facility]
--- NOTE | 2017-12-20 20:31 | HP ---
HISTORY OF PRESENT ILLNESS: Lilliam Mariee is a 77-year-old female presents with a diabetic left toe infection. She has a plantar ulcer communicating with an ulcer at the tip of the left second toe corry t when probing communicates with the phalanx. She clinically has osteomyelitis. The patient has a h istory of insulin-dependent diabetes mellitus, chronic kidney disease, elevated cholesterol, history of right below the knee amputation. She has strongly dopplerable pedal pulses, posterior tibial and dorsalis pedis. She has ankle edema, left ankle and foot. She is followed by Dr. Beckwith. She has a biliary stent for biliary cancer. She has an appointment in [place] to change the stent and she is undergoing discussions as far as surgical treatment or not. The patient lives at home. She is seen by [facility]. She has a sacral decubitus with a wound VAC in place. She has wheelchair m obility and cannot transfer, but has home health helping her most of the time. She had had a right B KA at [facility] 5 months ago. PAST SURGICAL HISTORY: Right BKA at [facility] 5 months ago, total abdominal hys terectomy, bilateral salpingo-oophorectomy, biliary stent for biliary cancer. PAST MEDICAL HISTORY: Diabetes mellitus, insulin dependent. She takes insulin twice a day, hyperten emily, elevated cholesterol, chronic kidney disease stage 3, biliary cancer with biliary stent. She i s , lives alone, lives in [facility], mobile in a wheelchair. ALLERGIES: None. TOBACCO: None. ALCOHOL: None. MEDICATIONS: Lisinopril 20 mg a day, multivitamins daily, Lasix 20 mg a day, atorvastatin 40 mg a da y, Nexium 40 mg a day, Humalog 75/25 20 units subcu twice a day pioglitazone 15 mg orally once a day, Florastor 250 mg daily, [place] as needed for pain 5/325, Lyrica 50 mg a day. REVIEW OF SYSTEMS: Ten point noncontributory. FAMILY HISTORY: Noncontributory. PHYSICAL EXAMINATION: VITAL SIGNS: 157 pounds, 63 inches, 184/42, 69 and 98.2 degrees. HEAD, EYES, EARS, NOSE AND THROAT: Unremarkable. No neurological deficit, no adenopathy, neck, axil la or groins. CARDIAC: Regular rate and rhythm without murmur or gallop. ABDOMEN: Soft, nontender. LUNGS: Clear to auscultation. ABDOMEN: Soft, nontender. EXTREMITIES: Palpable femoral, popliteal pulse, status post right [id number] amputation left schuyler t and ankle edema, strongly dopplerable dorsalis pedis, posterior tibial pulse, left. Left second to e, purulent drainage out the tip of the toe from a plantar ulcer, which communicate to the phalanx by probing. ASSESSMENT AND PLAN: 1. Diabetic foot infection, left second toe with osteomyelitis. We will call in Bactrim and Augment in for her for a week. Plan, x-ray of her left foot. Plan amputation of left second toe through the proximal phalanx outpatient next week. [facility] will see her at home. We will arrange for them to place a wound VAC at home, manage this at home. 2. Biliary stent for biliary cancer, appointment in [place] tomorrow to have the stent changed. 3. Insulin-dependent diabetes mellitus type 2. 4. Hypertension. 5. Elevated cholesterol. 6. Chronic kidney disease history. Check electrolytes, BUN and creatinine.
== END 2017-12-20 15:56 | disposition home or self-care (01) ==
LOC: RAD 15:55
PROVIDERS: ATTEND Specialist
DX: E11.69 Type 2 diabetes mellitus with other specified complication (principal); M86.9 Osteomyelitis, unspecified; L08.9 Local infection of the skin and subcutaneous tissue, unspecified; E78.00 Pure hypercholesterolemia, unspecified; E11.22 Type 2 diabetes mellitus with diabetic chronic kidney disease; I12.9 Hypertensive chronic kidney disease with stage 1 through stage 4 chronic kidney disease, or unspecified chronic kidney disease; N18.9 Chronic kidney disease, unspecified; Z96.89 Presence of other specified functional implants; Z85.09 Personal history of malignant neoplasm of other digestive organs
CPT/HCPCS: 36415; 80053; 85025; 87070; 87205

== ENCOUNTER 2017-12-24 08:37 | Day surgery (SDC) | payer MEDICARE, MEDICAID ==
[2017-12-21 16:25] VITALS: BMI 27.8
[2017-12-24] MEDS ORDERED: Cefepime 1 GM in Sodium Chloride 0.9% 100 ML IVPB SCH (09:00)
[2017-12-24] MEDS ORDERED: Piperacillin/Tazobactam 3.375 GM in Sodium Chloride 0.9% 100 ML IVPB SCH (09:15)
[2017-12-24 09:43] LABS: Anion Gap 12 mmol/L (10-20); BUN (Urea Nitrogen) 26 mg/dL (9.8-20.1); Calc. Creatinine Clearance 40 mL/min (70-130); Calcium 8.6 mg/dL (7.8-10.44); Carbon Dioxide 18 mmol/L (23-31); Chloride 112 mmol/L (98-107); Estimated GFR-MDRD 39; Glucose 154 mg/dL (83-110); Potassium 4.4 mmol/L (3.5-5.1); Sodium 138 mmol/L (136-145)
[2017-12-24] MEDS ORDERED: Midazolam HCl 2 mg/2 ml Vial ONE (10:08)
[2017-12-24] MEDS ORDERED: Fentanyl 100 MCG/2 ML VIAL ONE (10:08)
[2017-12-24] MEDS ORDERED: Vancomycin HCl 1 GM in Premix Bag 1 BAG IVPB SCH (10:30)
--- NOTE | 2017-12-24 14:14 | OP ---
DATE OF PROCEDURE: 12/24/2017 PREOPERATIVE DIAGNOSES: Diabetic infection, left second toe with osteomyelitis, distal phalanx. Rig ht BKA status. SURGEON: Dr. Michael Washington ANESTHESIA: General LMA. PROCEDURE: Amputation of left second toe through the proximal phalanx with primary closure. NOTE: Good blood supply. Good bleeding at the amputation site. Note, patient has a sacral decubitu s, cared for by [facility] outpatient. PROCEDURE IN DETAIL: The patient was taken to the operating room where under general LMA anesthesia, left lower extremity was prepared with ChloraPrep, draped in routine fashion. Left second toe was a mputated through the proximal phalanx, resecting the bone proximally with a rongeur, debriding connec tive tissue sharply, submitting the toe to Pathology. Good hemostasis obtained as wound was irrigate d and subcutaneous tissues closed with 3-0 Monocryl, skin with 4-0 Prolene. Sterile dressing applied .
[2017-12-24] MEDS ORDERED: Lidocaine 1% PF 5 ML VIAL ONE (14:54)
[2017-12-24] MEDS ORDERED: PROPOFOL 200 MG/20 ML VIAL ONE (14:54)
[2017-12-24] MEDS ORDERED: Ondansetron HCl/PF 4 MG/2 ML Vial ONE (14:54)
[2017-12-24] MEDS ORDERED: ePHEDrine/0.9% NaCl/PF SYRINGE 50 mg/10 ml ONE (14:54)
--- NOTE | 2017-12-25 12:35 | EKG ---
Test Reason : PREOP Blood Pressure : / mmHG Vent. Rate : 077 BPM Atrial Rate : 077 BPM P-R Int : 166 ms QRS Dur : 126 ms QT Int : 410 ms P-R-T Axes : 051 005 110 degrees QTc Int : 463 ms Normal sinus rhythm Non-specific intra-ventricular conduction block T wave abnormality, consider lateral ischemia Abnormal ECG Confirmed by ELVIS JOHANSEN ([id number]) on 12/25/2017 12:34:39 PM Referred By: YAZMIN Confirmed By:ELVIS JOHANSEN
== END 2017-12-24 14:34 | disposition home or self-care (01) ==
LOC: SDC 08:37
PROVIDERS: ATTEND Specialist
PROC: 0Y6S0Z0 Detachment at Left 2nd Toe, Complete, Open Approach (ICD-10-PCS; principal; 2017-12-24)
DX: E11.69 Type 2 diabetes mellitus with other specified complication (principal); M86.172 Other acute osteomyelitis, left ankle and foot; E11.52 Type 2 diabetes mellitus with diabetic peripheral angiopathy with gangrene; I96 Gangrene, not elsewhere classified; I12.9 Hypertensive chronic kidney disease with stage 1 through stage 4 chronic kidney disease, or unspecified chronic kidney disease; E11.22 Type 2 diabetes mellitus with diabetic chronic kidney disease; N18.3 Chronic kidney disease, stage 3 (moderate); E78.5 Hyperlipidemia, unspecified; D64.9 Anemia, unspecified; Z79.4 Long term (current) use of insulin; Z79.899 Other long term (current) drug therapy
CPT/HCPCS: 36415; 80048; 88305; 88311; 93005; 93010; J0131; J0692; J2001; J2250; J2405; J2704; J3010; J3370; J7050

== ENCOUNTER 2018-07-23 10:28 | Observation (INO) | payer MEDICARE, OTHER ==
[2018-07-23 11:05] LABS: #Eosinphils 0.2 thou/uL (0.0-0.7); #Monocytes 0.6 thou/uL (0.11-0.59); #Neutrophils 4.6 thou/uL (1.40-6.50); %Basophils 0.4 % (0.0-1.0); %Eosinophils 2.6 % (0.0-10.0); %Lymphocytes 27.4 % (21.0-51.0); %Monocytes 7.5 % (0.0-10.0); %Neutrophils 62.1 % (42.0-75.0); Hemoglobin 9.9 g/dL (12.0-16.0); Mean Corpuscular Volume 87.1 fL (78.0-98.0); Platelet Count 216 thou/uL (130-400); RBC Distribution Width 14.1 % (11.5-14.5); Red Blood Cell (RBC) Count 3.66 mill/uL (4.20-5.40); White Blood Cell (WBC) Count 7.4 thou/uL (4.8-10.8)
--- NOTE | 2018-07-23 11:19 | RAD ---
SINGLE VIEW CHEST: HISTORY: Weakness. COMPARISON: 06/26/2017 FINDINGS: Single view of the chest show normal sized cardiomediastinal silhouette. There is no evidence of cons olidation, mass, or pleural effusion. Degenerative changes are seen in the spine. IMPRESSION: No evidence of acute cardiopulmonary disease. POS: [facility]
[2018-07-23 11:37] LABS: ALT (SGPT) Less than 7 U/L (8-55); AST (SGOT) 12 U/L (5-34); Albumin 2.7 g/dL (3.4-4.8); Alkaline Phosphatase 157 U/L (40-150); Anion Gap 14 mmol/L (10-20); BUN (Urea Nitrogen) 32 mg/dL (9.8-20.1); Bilirubin, Total 0.4 mg/dL (0.2-1.2); Calc. Creatinine Clearance 0 mL/min (70-130); Calcium 8.3 mg/dL (7.8-10.44); Carbon Dioxide 19 mmol/L (23-31); Chloride 107 mmol/L (98-107); Estimated GFR-MDRD 22; Globulin 3.1 g/dL (2.4-3.5); Glucose 241 mg/dL (83-110); Potassium 4.5 mmol/L (3.5-5.1); Protein, Total 5.8 g/dL (6.0-8.3); Sodium 135 mmol/L (136-145)
[2018-07-23] MEDS ORDERED: Atropine Sulfate 1 mg/10 ml Syringe ONE (11:52)
[2018-07-23] MEDS ORDERED: Calcium Chloride 1 GM/10 ML Abboject SYRINGE ONE (12:08)
[2018-07-23 14:09] LABS: Troponin I 0.012 ng/mL (< 0.028)
[2018-07-23 15:17] LABS: Bilirubin Negative (Negative); Blood, Urine Small (Negative); Clarity CLOUDY (Clear); Glucose, Urine (Dipstick) 100 mg/dL (Negative); Leukocyte Moderate (Negative); Nitrite Negative (Negative); Protein, Urine (Dipstick) 100 mg/dL (Neg-Trace); Specific Gravity, Urine 1.006 (1.002-1.036); Urobilinogen 0.2 mg/dL (0.2-1.0); pH, Urine 5.5 (5.0-9.0)
[2018-07-23 15:19] LABS: Bacteria/HPF 2+ HPF (None Seen); Hyaline Casts/LPF 0-3 HYALINE CAST LPF (0-3 Hyaline); Pathc Cast-AUWi Flag 0.43 (0-2.49)
[2018-07-23 15:36] LABS: WBC/HPF 21-50 HPF (0-3); Yeast-All Forms None Seen HPF (None Seen)
[2018-07-23] MEDS ORDERED: Acetaminophen 325 MG TAB PO PRN (15:47)
[2018-07-23] MEDS ORDERED: Senokot S 8.6-50 MG TAB PO PRN (15:47)
--- NOTE | 2018-07-23 15:48 | HP ---
PRIMARY CARE PROVIDER: Dr. Beckwith. CHIEF COMPLAINT: Dizziness. HISTORY OF PRESENT ILLNESS: Ms. Mariee is a pleasant 78-year-old lady who was seen at [facility] on July 23, 2018. She reports that she was recently started on carvedilol 3.125 mg 2 times a day. She reports that since then she has had dizziness, constant, no known aggravating or relieving factors, not accompanied by nausea or vomiting. She also reports chest tightness that is nonradiating. She denies any fevers or chills. She denies any abdominal pain. REVIEW OF SYSTEMS: All other systems reviewed and found to be negative. PAST MEDICAL HISTORY: Dyslipidemia, vertigo, diabetes mellitus type 2, hypertension, colon cancer, cervical cancer, anemia, and biliary cancer with biliary stent. PAST SURGICAL HISTORY: Colon resection, appendectomy, cholecystectomy, hysterectomy, right below-knee amputation, and left 2nd toe amputation. FAMILY HISTORY: Diabetes mellitus in several family members. Father of heart attack. Amputation in patient's son secondary to diabetes. ALLERGIES: NO KNOWN DRUG ALLERGIES. CURRENT MEDICATIONS: This needs to be clarified, but appears to include: 1. Coreg. 2. Atorvastatin. 3. Lasix. 4. Pioglitazone. 5. Humalog insulin. 6. Lisinopril. 7. P.r.n. hydrocodone. SOCIAL HISTORY: The patient denies current tobacco use, alcohol use, or recreational drug use. CODE STATUS: I discussed her code status. She is full code. PHYSICAL EXAMINATION: GENERAL: On examination, Ms. Mariee is awake and alert, not in acute distress. VITAL SIGNS: Blood pressure is 162/52, pulse 62, respiratory rate 16, and oxygen saturation 100% on room air. Earlier, she had pulse of 35. EYES: No scleral icterus, no conjunctival pallor. ENT: Moist mucosal membranes. No oropharyngeal erythema or exudates. NECK: Supple, nontender, trachea is midline. RESPIRATORY: Accessory muscles of breathing are not active. Chest wall movements are symmetric bilaterally. Lungs are clear to auscultation without wheeze, rhonchi, or crepitations. CARDIOVASCULAR: S1 and S2 are heard, regular. Peripheral pulses palpable in both left extremities and right upper extremity. No pericardial rub. ABDOMEN: Soft, nontender, bowel sounds heard, no hepatomegaly, no splenomegaly. NEUROLOGIC: Cranial nerves 2 through 12 are intact. MUSCULOSKELETAL: Status post right below-knee amputation, status post left 2nd toe amputation. SKIN: Sacral wound, left plantar wound. LYMPHATIC: No cervical lymphadenopathy. PSYCHIATRIC: Normal mood, normal affect, the patient is oriented to person, place, and time. LABORATORY DATA: Ms. Mariee's labs and investigations were reviewed. I reviewed her electrocardiogram, which shows sinus bradycardia, no ST changes to suggest an acute coronary syndrome. I also reviewed her chest x-ray, which does not show any pulmonary infiltrates. Normal white count, normocytic anemia with hemoglobin 9.9, normal platelet count, decreased sodium of 135, elevated blood urea nitrogen of 32, elevated creatinine of 2.19, last known creatinine 1.68 on July 15, 2018, elevated alkaline phosphatase of 157, it was 197 on July 15, 2018, decreased albumin of 2.7, elevated BNP of 1031, it was 95.5 in January 2016, and normal troponin-I x2. ASSESSMENT AND PLAN: Ms. Mariee is a pleasant 78-year-old lady who was seen at [facility] on July 23, 2018. Her problem list includes: 1. Symptomatic bradycardia: Ms. Mariee is presenting with symptomatic bradycardia: Most likely secondary to use of beta blockers. The patient is being admitted to the hospital on observation status. Beta blockers will be on hold. She will be monitored on telemetry unit. When she improves, she will be discharged home. Cardiology Service also being consulted by emergency room physician. 2. Diabetes mellitus type 2: We will start Accu-Cheks and insulin sliding scale. 3. Hypertension: We will monitor vital signs and titrate antihypertensives as needed. 4. Dizziness: Most likely secondary to bradycardia. We will evaluate after heart rate improves. 5. Acute on chronic renal failure: The patient is presenting with acute on chronic stage 3 kidney disease. We will provide gentle hydration and reassess. Many thanks for allowing me to participate in your patient's care. Please feel free to contact me with any questions or concerns. LEVEL OF RISK: High. LEVEL OF COMPLEXITY: High. Job ID: [id number] MTDD
[2018-07-23] MEDS ORDERED: Dextrose 5% in Water 1,000 ML IV PRN (15:53)
[2018-07-23] MEDS ORDERED: Dextrose 50% Abboject 50 ML SYRINGE SLOW IVP PRN (15:53)
[2018-07-23] MEDS ORDERED: hydrALAZINE 20 MG/ML VIAL SLOW IVP PRN (15:56)
[2018-07-23 17:32] LABS: Troponin I 0.029 ng/mL (< 0.028)
--- NOTE | 2018-07-23 18:27 | CON ---
DATE OF CONSULTATION: 07/23/2018 PRIMARY EXTRUSION FORMER: Clarisse Faith MD. HISTORY OF PRESENT ILLNESS: Ms. Mariee is a very pleasant 78-year-old female, who comes to the hospital for dizziness. She was recently given a prescription for carvedilol 6.25 mg twice a day, which she filled on the 15 of July and started taking that same evening. She comes in for dizziness. She was found to be bradycardic in the 30s. She was given atropine and her heart rate increased. She is feeling better now. Telemetry shows heart rate in the 60s, normal sinus. Dr. Faith has been following her in the last few months for PVD and nonhealing ulcer. She has a history of a BKA on the right leg and the left leg has some ulcer that is needing treatment as well. She was scheduled to have a catheterization for which she presented to the facility and was found to have an elevated creatinine, so this was canceled. Ms. Mariee had been on Toprol 25 mg once a day for many years, so this change is expected. She was actually taking half a tablet of the 6.25 twice a day. PAST MEDICAL HISTORY: 1. Hyperlipidemia. 2. Vertigo. 3. Type 2 diabetes. 4. Hypertension. 5. History of colon cancer. 6. History of cervical cancer. 7. Anemia. 8. Biliary cancer with biliary stents in the past. 9. Peripheral vascular disease. PAST SURGICAL HISTORY: 1. Colon resection. 2. Appendectomy. 3. Cholecystectomy. 4. Hysterectomy. 5. Right [id number]-[id number] amputation. 6. Left second toe amputation. FAMILY HISTORY: Diabetes. Father of an MA. Amputation on son secondary to diabetes. ALLERGIES: NO KNOWN DRUG ALLERGIES. OUTPATIENT MEDICATIONS: 1. Coreg 6.25 mg half tablet b.i.d. 2. Lasix 20 mg a day. 3. Atorvastatin 40 mg at bedtime. 4. Lisinopril 5 mg a day. 5. Nexium 40 mg a day. 6. Vitamin D3. 7. Amlodipine 10 mg a day. 8. Hydrocodone with acetaminophen 7.5/325 mg p.r.n. 9. Lyrica 5 mg at bedtime b.i.d. 10. Hydralazine 10 mg t.i.d. 11. Aspirin 81 a day. 12. Klor-Con M 8 mEq a day. 13. SymlinPen. ALLERGIES: NO KNOWN DRUG ALLERGIES. SOCIAL HISTORY: No tobacco. No drugs. No alcohol. Drinks about 1 to 2 cups a day of coffee. REVIEW OF SYSTEMS: A 12-point review of systems was done and was found to be negative unless stated in the history of present illness. PHYSICAL EXAMINATION: VITAL SIGNS: Temperature is 97.2, blood pressure 138/60, pulse 64, respiratory rate 18, saturations 100% on room air. GENERAL: Awake, alert, and oriented x3. No distress. HEENT: Normocephalic and atraumatic. NECK: Supple. LUNGS: Clear. CARDIOVASCULAR: S1 and S2. No S3 or S4. There is a grade 2/6 systolic murmur at the right upper sternal border. ABDOMEN: Soft. Positive bowel sounds. EXTREMITIES: Right [id number]-hff-wbpy amputation, left second toe amputation with trace edema on the left. SKIN: Dry. LABORATORY WORK: CBC with a white count of 7.4, hemoglobin 9.9, hematocrit 31.9, platelet count of 216. Chemistry with a sodium of 135, potassium 4.5, chloride of 107, carbon dioxide of 19, anion gap of 14, BUN of 32, creatinine 2.19, GFR of 22, glucose of 241. Troponin at 0.02, 0.01, 0.02. BNP was 1031. Albumin of 2.7. UA with 100 protein, 100 glucose, small blood, moderate leukocyte esterase, 21 to 50 white cells, 7 to 10 squamous epithelial cells, 2+ bacteria. Chest x-ray, no evidence of cardiopulmonary disease. EKGs were reviewed. Sinus bradycardia down to the low 30s. ASSESSMENT AND PLAN: 1. Sinus bradycardia. 2. New elevated BNP, concerned for systolic heart failure. 3. Severe peripheral vascular disease. 4. Acute kidney injury on chronic kidney disease. PLAN: 1. Discontinue all beta blockers or any AV mitchell blocking agents. 2. If she recurs on her bradycardia despite stopping beta blockers, she will be candidate for pacemaker, not at this time. 3. We will get an echocardiogram as she has a significantly elevated BNP and concerned for systolic dysfunction. 4. Dr. Faith, her primary project management consultant, will follow up in the morning. Job ID: [id number]
[2018-07-23 18:42] VITALS: BMI 27.0
[2018-07-23] MEDS: Sodium Chloride 0.9% 1,000 ML IV SCH (18:49)
[2018-07-23] MEDS: Heparin 5,000 UNITS/ML VIAL SC SCH (21:39)
[2018-07-23] MEDS: Atorvastatin Calcium 40 MG TAB PO SCH (21:39)
[2018-07-24 05:43] LABS: #Eosinphils 0.2 thou/uL (0.0-0.7); #Lymphocytes 1.9 thou/uL (1.20-3.40); #Monocytes 0.5 thou/uL (0.11-0.59); #Neutrophils 5.9 thou/uL (1.40-6.50); %Basophils 0.5 % (0.0-1.0); %Eosinophils 1.8 % (0.0-10.0); %Lymphocytes 22.3 % (21.0-51.0); %Monocytes 6.2 % (0.0-10.0); %Neutrophils 69.1 % (42.0-75.0); Hemoglobin 8.9 g/dL (12.0-16.0); Mean Corpuscular HGB CONC 32.7 g/dL (32.0-36.0); Mean Corpuscular Hemoglobin 27.4 pg (27.0-31.0); Mean Corpuscular Volume 83.7 fL (78.0-98.0); Platelet Count 204 thou/uL (130-400); Red Blood Cell (RBC) Count 3.26 mill/uL (4.20-5.40); White Blood Cell (WBC) Count 8.5 thou/uL (4.8-10.8)
[2018-07-24 05:59] LABS: Anion Gap 11 mmol/L (10-20); BUN (Urea Nitrogen) 23 mg/dL (9.8-20.1); Calc. Creatinine Clearance 43 mL/min (70-130); Calcium 8.8 mg/dL (7.8-10.44); Carbon Dioxide 21 mmol/L (23-31); Chloride 112 mmol/L (98-107); Estimated GFR-MDRD 46; Glucose 191 mg/dL (83-110); Potassium 3.8 mmol/L (3.5-5.1); Sodium 140 mmol/L (136-145)
--- NOTE | 2018-07-24 08:35 | PDOC.CTH ---
Cardiology Progress Note - Subjective The pt seen and examined. No overnight events. No cardiac complaints. Complains of chronic pain to ulcer site - Objective Vital Signs Temp Pulse Resp BP Pulse Ox 07/24/18 03:35 98.4 F 65 20 149/61 H 96 07/24/18 00:50 98.6 F 68 20 141/64 H 96 Weight 152 lb 12.8 oz 07/23/18 07/24/18 07/25/18 06:59 06:59 06:59 Intake Total 857 50 Output Total 550 Balance 307 50 - Physical Examination General/Neuro: alert & oriented x3 Neck: no JVD present Lungs: CTA Heart: RRR Abdomen: soft Extremities: other: (No edema) - Telemetry Telemetry Rhythm: SR 70s - Labs Result Diagrams: 07/24/18 04:55 07/24/18 04:55 Troponin/CKMB Troponin I 0.029 ng/mL (< 0.028) H 07/23/18 16:49 - Assessment/Plan 1. Symptomatic Bradycardia 2/2 BBlocker - Stable HR 60-70s; cont. holding BBlocker for now. 2. HTN - resume Norvasc 5 mg qd from this AM. 3. GUY on CKD stage 3 - improving 4. DM type 2 - managed by PCP 5. Hyperlipidemia - on Lipitor 40mg qd 6. PAD withy hx of Rt BKA - stable; possible AFRO when her renal function is more stable 7. several hx of cancer MAR reviewed * From Cardiac standpoint, the pt is stable to d/c home if her VS is stable with Norvasc 5mg qd. The pt will f/u with Dr Faith' office within 2 wks. Review of Systems - Review of Systems Constitutional: reports: no symptoms reported EENTM: reports: no symptoms reported Respiratory: reports: no symptoms reported Cardiac (ROS): reports: no symptoms reported ABD/GI: reports: no symptoms reported : reports: no symptoms reported Musculoskeletal: reports: see HPI Skin: reports: see HPI
[2018-07-24] MEDS: Heparin 5,000 UNITS/ML VIAL SC SCH ×3 (08:46→21:19)
[2018-07-24] MEDS ORDERED: Amlodipine 5 MG TAB PO SCH (09:00)
[2018-07-24] MEDS: HYDROcodone/Acetaminophen 5/325 mg Tablet PO PRN ×2 (09:55→21:18)
[2018-07-24] MEDS: HumaLOG 300 UNITS/3 ML VIAL SC PRN (11:40)
[2018-07-24] MEDS: Sodium Chloride 0.9% 1,000 ML IV SCH (14:40)
--- NOTE | 2018-07-24 15:55 | PDOC.PN ---
- Subjective Encounter Start Date: 07/24/18 Encounter Start Time: 15:53 Pt seen for followup re: acute on chronic CKD. Had light-headedness earlier, not now. Feels better. - Objective Resuscitation Status - Order Detail: 07/23/18 15:47 Resuscitation Status Routine Resuscitation Status: FULL: Full Resuscitation Discussed with: patient SKIP Reviewed: Yes Vital Signs & Weight: Vital Signs (12 hours) Temp Pulse Resp BP BP Pulse Ox 07/24/18 11:44 97.6 F 66 20 140/63 96 07/24/18 08:46 98.2 F 69 16 148/63 H 97 07/24/18 08:44 69 148/63 H Weight Admit Weight 152 lb 12.8 oz Weight 152 lb 12.8 oz I&O: 07/23/18 07/24/18 07/25/18 06:59 06:59 06:59 Intake Total 857 350 Output Total 550 Balance 307 350 Result Diagrams: 07/24/18 04:55 07/24/18 04:55 Additional Labs: Accuchecks 07/24/18 07/24/18 07/23/18 10:37 05:47 21:26 POC Glucose 243 H 207 H 217 H 07/23/18 18:46 POC Glucose 195 H EKG Reviewed by me: Yes (Tele: NSR) Phys Exam - Physical Examination Constitutional: NAD HEENT: moist MMs Neck: supple Respiratory: clear to auscultation bilateral Cardiovascular: RRR Gastrointestinal: soft s/p R BKA, L 2nd toe amputation Neurological: moves all 4 limbs Psychiatric: normal affect Deviation from normal: wounds as documented Dx/Plan (1) Acute worsening of stage 3 chronic kidney disease Code(s): N18.3 - CHRONIC KIDNEY DISEASE, STAGE 3 (MODERATE) Status: Acute Comment: Improving (2) DM2 (diabetes mellitus, type 2) Status: Chronic Comment: continue accuchecks, insulin sliding scale (3) HTN (hypertension) Code(s): I10 - ESSENTIAL (PRIMARY) HYPERTENSION Status: Chronic Qualifiers: Hypertension type: essential hypertension Qualified Code(s): I10 - Essential (primary) hypertension Comment: Improved (4) Sacral decubitus ulcer Status: Chronic Qualifiers: Qualified Code(s): L89.150 - Pressure ulcer of sacral region, unstageable Comment: wound care following (5) Bradycardia Code(s): R00.1 - BRADYCARDIA, UNSPECIFIED Status: Resolved - Plan * . Review of Systems - Review of Systems Cardiovascular: negative: chest pain, palpitations, orthopnea, paroxysmal nocturnal dyspnea, edema, light headedness Gastrointestinal: negative: Nausea, Vomiting, Abdominal Pain, Diarrhea, Constipation, Melena, Hematochezia - Medications/Allergies Allergies/Adverse Reactions: Allergies Allergy/AdvReac Type Severity Reaction Status Date / Time No Known Allergies Allergy Verified 12/21/17 16:25 Medications: Current Medications Acetaminophen (Tylenol) 650 mg PO Q4H PRN PRN Reason: Headache/Fever/Mild Pain (1-3) Hydrocodone Bitart/Acetaminophen ([place] 5/325) 1 tab PO Q8H PRN PRN Reason: Pain Last Admin: 07/24/18 09:55 Dose: 1 tab Amlodipine Besylate (Norvasc) 5 mg PO DAILY [facility] Last Admin: 07/24/18 08:44 Dose: 5 mg Atorvastatin Calcium (Lipitor) 40 mg PO HS [facility] Last Admin: 07/23/18 21:39 Dose: 40 mg Dextrose/Water (Dextrose 50%) 25 gm SLOW IVP PRN PRN PRN Reason: Hypoglycemia Glucagon (Glucagon) 1 mg IM PRN PRN PRN Reason: Hypoglycemia Heparin Sodium (Porcine) (Heparin) 5,000 units SC TID [facility] Last Admin: 07/24/18 14:33 Dose: 5,000 units Hydralazine HCl (Apresoline) 10 mg SLOW IVP Q6H PRN PRN Reason: SBP Greater Than 170 Sodium Chloride (Normal Saline 0.9%) 1,000 mls @ 50 mls/hr IV .Q20H [facility] Last Admin: 07/24/18 14:40 Dose: 1,000 mls Dextrose/Water (D5w) 1,000 mls @ 0 mls/hr IV .Q0M PRN PRN Reason: Hypoglycemia Influenza Virus Vacc Triv Types A&B (Fluzone High-Dose Syr) 0.5 ml IM .ONCE ONE Stop: 07/24/18 21:01 Insulin Human Lispro (Humalog) 0 units SC .MILD SLIDING SCALE PRN PRN Reason: Mild Correctional Scale Last Admin: 07/24/18 11:40 Dose: 3 units Senna/Docusate Sodium (Senokot S) 2 tab PO BID PRN PRN Reason: Constipation Sodium Chloride (Flush - Normal Saline) 10 ml IVF Q12HR LEIGH Sodium Chloride (Flush - Normal Saline) 10 ml IVF PRN PRN PRN Reason: Saline Flush
[2018-07-24] MEDS ORDERED: Pregabalin 50 MG CAP PO PRN (17:02)
[2018-07-24] MEDS ORDERED: HumaLOG 300 UNITS/3 ML VIAL SC PRN (21:06)
[2018-07-24] MEDS: Atorvastatin Calcium 40 MG TAB PO SCH (21:18)
[2018-07-25 06:05] LABS: #Eosinphils 0.3 thou/uL (0.0-0.7); #Lymphocytes 2.2 thou/uL (1.20-3.40); #Monocytes 0.6 thou/uL (0.11-0.59); #Neutrophils 3.3 thou/uL (1.40-6.50); %Basophils 0.4 % (0.0-1.0); %Eosinophils 4.5 % (0.0-10.0); %Lymphocytes 34.1 % (21.0-51.0); %Monocytes 8.8 % (0.0-10.0); %Neutrophils 52.1 % (42.0-75.0); Hemoglobin 8.8 g/dL (12.0-16.0); Mean Corpuscular HGB CONC 32.2 g/dL (32.0-36.0); Mean Corpuscular Hemoglobin 27.1 pg (27.0-31.0); Mean Corpuscular Volume 84.4 fL (78.0-98.0); Mean Platelet Volume 7.5 fL (7.4-10.4); Platelet Count 191 thou/uL (130-400); RBC Distribution Width 13.8 % (11.5-14.5); Red Blood Cell (RBC) Count 3.26 mill/uL (4.20-5.40); White Blood Cell (WBC) Count 6.4 thou/uL (4.8-10.8)
[2018-07-25] MEDS: HYDROcodone/Acetaminophen 5/325 mg Tablet PO PRN (06:19)
[2018-07-25 06:25] LABS: Anion Gap 8 mmol/L (10-20); BUN (Urea Nitrogen) 18 mg/dL (9.8-20.1); Calc. Creatinine Clearance 49 mL/min (70-130); Calcium 8.3 mg/dL (7.8-10.44); Carbon Dioxide 24 mmol/L (23-31); Chloride 111 mmol/L (98-107); Estimated GFR-MDRD 53; Glucose 149 mg/dL (83-110); Potassium 4.1 mmol/L (3.5-5.1); Sodium 139 mmol/L (136-145)
[2018-07-25] MEDS ORDERED: Amlodipine 5 MG TAB PO SCH (09:00)
[2018-07-25 09:04] VITALS: TEMP 97.7
[2018-07-25] MEDS: Sodium Chloride 0.9% 1,000 ML IV SCH (09:05)
[2018-07-25] MEDS: Heparin 5,000 UNITS/ML VIAL SC SCH ×2 (09:09→17:07)
[2018-07-25] MEDS ORDERED: Ondansetron ODT 4 MG TAB PO PRN (10:09)
[2018-07-25] MEDS ORDERED: Ondansetron PF 4 MG/2 ML Vial IVP PRN (10:09)
[2018-07-25] MEDS ORDERED: Meclizine HCl 25 MG TAB PO PRN (10:11)
[2018-07-25] MEDS ORDERED: Pregabalin 50 MG CAP PO PRN ×2 (10:11→10:19)
[2018-07-25 11:56] VITALS: BP 148/64
--- NOTE | 2018-07-25 12:28 | PDOC.CTH ---
Cardiology Progress Note - Subjective The pt seen and examined. No overnight events. No cardiac complaints. She had symptomatic bradycardia with Coreg 3.125mg BID. - Objective Vital Signs Temp Pulse Resp BP BP BP Pulse Ox 07/25/18 11:55 97.7 F 63 16 148/64 H 96 07/25/18 09:08 53 L 177/73 H 07/25/18 07:39 97.7 F 53 L 16 133/56 L 96 07/25/18 04:12 98.0 F 52 L 13 115/59 L 97 Admit Weight 152 lb 12.8 oz Weight 152 lb 12.8 oz 07/24/18 07/25/18 07/26/18 06:59 06:59 06:59 Intake Total 857 2875 Output Total 550 600 Balance 307 2275 - Physical Examination General/Neuro: alert & oriented x3 Neck: no JVD present Lungs: CTA Extremities: other: (edema) - Telemetry Telemetry Rhythm: SR - Labs Result Diagrams: 07/25/18 05:52 07/25/18 05:52 Troponin/CKMB Troponin I 0.029 ng/mL (< 0.028) H 07/23/18 16:49 - Assessment/Plan 1. Symptomatic Bradycardia 2/2 BBlocker - Stable HR 60-70s; cont. holding BBlocker for now. 2. HTN - increase Norvasc 5 mg from qd to BID from this AM. 3. GUY on CKD stage 3 - improving 4. DM type 2 - managed by PCP 5. Hyperlipidemia - on Lipitor 40mg qd 6. PAD withy hx of Rt BKA - stable; possible AFRO when her renal function is more stable 7. several hx of cancer MAR reviewed * From Cardiac standpoint, the pt is stable to d/c home if her VS is stable with Norvasc 5mg qd. The pt will f/u with Dr Faith' office within 2 wks. pt. seen and eval. by me. i agree with the A/P by the [employer]ER. Chest clear, RRR Review of Systems - Review of Systems Constitutional: reports: no symptoms reported Respiratory: reports: no symptoms reported ABD/GI: reports: no symptoms reported : reports: no symptoms reported Musculoskeletal: reports: no symptoms reported Skin: reports: no symptoms reported Neurological: reports: no symptoms reported
[2018-07-25] MEDS: HumaLOG 300 UNITS/3 ML VIAL SC PRN (17:50)
--- NOTE | 2018-07-26 00:48 | DIS ---
DATE OF ADMISSION: 07/23/2018 DATE OF DISCHARGE: 07/25/2018 PRIMARY CARE PROVIDER: Rodrigo Beckwith, DISCHARGE DIAGNOSES: 1. Symptomatic bradycardia. 2. Acute on chronic stage 3 kidney disease. CONDITION OF PATIENT ON THE DAY OF DISCHARGE: Stable. I assessed Ms. Mariee on the day of discharge. She denies any chest pain or shortness of breath. Vital signs are stable. S1 and S2 are heard, regular. Lungs are clear to auscultation bilaterally. DISCHARGE MEDICATIONS: 1. [place] p.r.n. 2. Atorvastatin 40 mg at bedtime. 3. Vitamin D3 of 5000 units daily. 4. Esomeprazole 40 mg daily. 5. Lasix 20 mg daily. 6. Humalog 75/25, 20 units two times a day. 7. Loratadine 10 mg daily. 8. Meclizine 25 mg t.i.d. p.r.n. 9. Pregabalin 50 mg b.i.d. p.r.n. 10. Amlodipine 5 mg p.o. b.i.d., increased from pre-admission dose of 5 mg daily. 11. Florastor 250 mg daily. CONSULTATIONS DURING THIS HOSPITALIZATION: Cardiology, Rodrigo Ardon MD HOSPITAL COURSE: Ms. Mariee is a pleasant 78-year-old lady, who was admitted to [facility] on July 23, 2018, for symptomatic bradycardia. She was recently started on carvedilol. Carvedilol was discontinued with improvement in her symptoms. She was also found to be in acute on chronic renal insufficiency with a creatinine of 2.19. She received gentle hydration with improvement of her creatinine to 1.01. She was advised to check her blood pressure and heart rate 3 times a day and shows the readings to her primary care provider. She was also advised to follow up with Cardiology Service in 2 weeks time. Many thanks for allowing me to participate in your patient's care. Please feel free to contact with any questions or concerns. On the day of discharge, she has sodium 139, potassium 4.1, creatinine 1.01, white count 6400, hemoglobin 8.8, and platelet count 191,000. DISCHARGE DESTINATION: Home. Job ID: [id number]
[2018-07-26] MEDS ORDERED: Saccharomyces boulardii 250 MG CAP PO SCH (09:00)
[2018-07-26] MEDS ORDERED: Furosemide 20 MG TAB PO SCH (09:00)
[2018-07-26] MEDS ORDERED: Non-Formulary Item 1 EACH (Esomeprazole Magnesium [Nexium Oral Suspension] 40 MG) PO SCH (09:00)
[2018-07-26] MEDS ORDERED: Non-Formulary Item 1 EACH (Cholecalciferol (Vitamin D3) [Vitamin D3] 5,000 UNIT) PO SCH (09:00)
--- NOTE | 2018-07-27 18:45 | EKG ---
Test Reason : Blood Pressure : / mmHG Vent. Rate : 040 BPM Atrial Rate : 040 BPM P-R Int : 000 ms QRS Dur : 112 ms QT Int : 504 ms P-R-T Axes : 000 -08 197 degrees QTc Int : 410 ms Marked sinus bradycardia Septal infarct , age undetermined Abnormal ECG Confirmed by JOSUÉ ZUNIGA ([id number]), video editor JUSTINO MURILLO ([id number]) on 07/27/2018 6:44:30 PM Referred By: Confirmed By:JOSUÉ ZUNIGA
--- NOTE | 2018-07-27 18:45 | EKG ---
Test Reason : Blood Pressure : / mmHG Vent. Rate : 036 BPM Atrial Rate : 036 BPM P-R Int : 000 ms QRS Dur : 120 ms QT Int : 538 ms P-R-T Axes : 000 -03 247 degrees QTc Int : 416 ms Idioventricular rhythm Septal infarct , age undetermined Abnormal ECG Confirmed by JOSUÉ ZUNIGA ([id number]), web editor JUSTINO MURILLO ([id number]) on 07/27/2018 6:44:33 PM Referred By: Confirmed By:JOSUÉ ZUNIGA
== END 2018-07-25 19:00 | disposition home or self-care (01) ==
LOC: ERS 10:28 → ERHOLD 13:40 → 2NO 18:18
PROVIDERS: ADMIT Internal Medicine; ATTEND Internal Medicine
DX: R00.1 Bradycardia, unspecified (principal); I12.9 Hypertensive chronic kidney disease with stage 1 through stage 4 chronic kidney disease, or unspecified chronic kidney disease; E11.22 Type 2 diabetes mellitus with diabetic chronic kidney disease; N18.3 Chronic kidney disease, stage 3 (moderate); N17.9 Acute kidney failure, unspecified; D63.1 Anemia in chronic kidney disease; R42 Dizziness and giddiness; E11.51 Type 2 diabetes mellitus with diabetic peripheral angiopathy without gangrene; E78.5 Hyperlipidemia, unspecified; E11.622 Type 2 diabetes mellitus with other skin ulcer; L98.499 Non-pressure chronic ulcer of skin of other sites with unspecified severity; Z85.038 Personal history of other malignant neoplasm of large intestine; Z85.41 Personal history of malignant neoplasm of cervix uteri; Z85.09 Personal history of malignant neoplasm of other digestive organs; Z79.4 Long term (current) use of insulin; Z79.899 Other long term (current) drug therapy; Z90.49 Acquired absence of other specified parts of digestive tract; Z89.422 Acquired absence of other left toe(s); Z89.511 Acquired absence of right leg below knee
CPT/HCPCS: 71045; 80048 ×2; 80053; 82962 ×3; 83880; 84484 ×2; 85025 ×3; 93005; 96361 ×3; 96374; 96375 ×2; 97139 ×4; 99285; G0378 ×2; 36415; 36416; 81003; 81015; J0461; J1644; J2405